=== PATIENT | female | born 1955 | race Caucasian/White ===

== ENCOUNTER 2017-03-22 07:57 | Inpatient (IN) | payer MEDICARE ==
[2017-03-22] MEDS ORDERED: NORMAL SALINE 1000 ML 1,000 ML IV ONE (08:03)
[2017-03-22 08:30] LABS: ABSOLUTE BASOPHILS # (AUTO) 0.1 10^3/uL (0.0-0.2); ABSOLUTE LYMPHOCYTES (AUTO) 1.1 10^3/uL (0.5-4.7); ABSOLUTE MONOCYTES (AUTO) 0.8 10^3/uL (0.1-1.4); ABSOLUTE NEUT (AUTO) 11.6 10^3/uL (1.7-8.2); BASOPHILS % (AUTO) 0.5 % (0-2); HEMATOCRIT 46.3 % (36.0-47.0); HGB HCT DIFFERENCE -1.3; LYMPHOCYTES % (AUTO) 8.2 % (13-45); MEAN CORPUSCULAR HEMOGLOBIN 28.1 pg (27.0-33.4); MEAN CORPUSCULAR HGB CONC 32.4 g/dL (32.0-36.0); MEAN CORPUSCULAR VOLUME 87 fl (80-97); MONOCYTES % (AUTO) 6.1 % (3-13); RED BLOOD COUNT 5.33 10^6/uL (3.72-5.28); RED CELL DISTRIBUTION WIDTH 14.3 % (11.5-14.0); SEGMENTED NEUTROPHILS % (AUTO) 85.2 % (42-78); VENOUS BLOOD BASE EXCESS -0.3 mmol/L; VENOUS BLOOD HCO3 22.8 mmol/L (20-32); VENOUS BLOOD PCO2 33.4 mmHg (35-63); VENOUS BLOOD PH 7.45 (7.30-7.42); WHITE BLOOD COUNT 13.6 10^3/uL (4.0-10.5)
--- NOTE | 2017-03-22 08:37 | ER Document Report ---
ED General - General Chief Complaint: Altered Mental Status Stated Complaint: ALTERED MENTAL STATUS Time Seen by Provider: 03/22/17 08:01 Mode of Arrival: Medic Information source: Emergency Med Personnel Cannot obtain history due to: Altered mental status Notes: 61 yr old female presents from home altered. Pt found o nthe lfoor down unknown amount of time. pt unable ot explain her concerns TRAVEL OUTSIDE OF THE [place] IN LAST 30 DAYS: No - HPI Onset: Other Onset/Duration: Persistent Quality of pain: No pain Severity: Severe Pain Level: Denies Associated symptoms: Weakness Exacerbated by: Denies Relieved by: Denies Similar symptoms previously: No Recently seen / treated by doctor: No - Related Data Allergies/Adverse Reactions: atropine [Atropine] Allergy (Intermediate, Verified 01/26/11 10:16) Abnormal behavior sumatriptan [From Imitrex] Allergy (Unverified 12/19/10 16:26) sumatriptan succinate [From Imitrex] Allergy (Unverified 12/19/10 16:26) Past Medical History - Social History Smoking Status: Never Smoker Cigarette use (# per day): No Chew tobacco use (# tins/day): No Smoking Education Provided: No Family History: None - Past Medical History Cardiac Medical History: Reports: Hx Hypertension, Hx Heart Murmur Denies: Hx Congestive Heart Failure, Hx Coronary Artery Disease, Hx Heart Attack Pulmonary Medical History: Denies: Hx Asthma, Hx Bronchitis, Hx COPD, Hx Pneumonia Neurological Medical History: Denies: Hx Cerebrovascular Accident, Hx Seizures Endocrine Medical History: Reports: Hx Diabetes Mellitus Type 2 GI Medical History: Musculoskeltal Medical History: Reports Hx Arthritis - generalized Infectious Medical History: Past Surgical History: Denies: Hx Pacemaker Review of Systems - Review of Systems Notes: PHYSICAL EXAMINATION: GENERAL: Chronically ill-appearing female no acute distress altered HEAD: Atraumatic, normocephalic. EYES: Pupils equal round and reactive to light, extraocular movements intact, conjunctiva are normal. ENT: Nares patent, oropharynx clear without exudates. Moist mucous membranes. NECK: Normal range of motion, supple without lymphadenopathy LUNGS: Breath sounds clear to auscultation bilaterally and equal. No wheezes rales or rhonchi. HEART: Regular rate and rhythm without murmurs ABDOMEN: Soft, nontender, nondistended abdomen. No guarding, no rebound. No masses appreciated. Female : deferred Musculoskeletal: Normal range of motion, no pitting or edema. No cyanosis. NEUROLOGICAL: GCS 13 confused is able to say help otherwise is unable to express herself SKIN: mild ecchymosis above the left eyebrow -: Yes ROS unobtainable due to patient's medical condition Physical Exam - Vital signs Vitals: Pulse Resp BP Pulse Ox 80 18 162/86 H 98 03/22/17 08:06 03/22/17 08:06 03/22/17 08:06 03/22/17 08:06 Course - Re-evaluation Re-evalutation: 03/22/17 08:37 Patient's presentation is concerning for a septic event, imaging lab work are pending at this time 03/22/17 09:23 Patient is noted to be febrile rectal Tylenol given, empiric antibiotics IV fluids have been ordered urinalysis noted no acute abnormality CT imaging is pending 03/22/17 09:56 I was notified that the patient began seizing, patient was admitted placed on nonrebreather nasal trumpet was inserted she was given 2 mg of Ativan IV she unfortunately did pull out her second IVs during the seizure 03/22/17 10:17 CT head on my review does not note any obvious bleed, therefore with fever seizure altered mental status I will rule out for meningitis 03/22/17 10:42 pt becoming more obtunded, not protecting her airway, intubated for airway protection 03/22/17 11:[address] Carrasco phone number is [phone] - Vital Signs Vital signs: Temp Pulse Resp BP Pulse Ox 101.2 F H 80 20 183/93 H 99 03/22/17 08:21 03/22/17 08:06 03/22/17 12:41 03/22/17 12:41 03/22/17 12:41 - Laboratory Result Diagrams: 03/22/17 08:15 03/22/17 08:15 Laboratory results interpreted by me: 03/22/17 03/22/17 03/22/17 08:15 08:15 08:15 WBC 13.6 H RBC 5.33 H RDW 14.3 H Seg Neutrophils % 85.2 H Lymphocytes % 8.2 L Absolute Neutrophils 11.6 H VBG pH 7.45 H VBG pCO2 33.4 L Potassium 3.3 L Carbon Dioxide 20 L BUN 25 H Glucose 133 H Calcium 10.4 H Creatine Kinase 902 H Total Protein 8.8 H Urine Protein Urine Ketones Urine Blood Urine Urobilinogen 03/22/17 08:51 WBC RBC RDW Seg Neutrophils % Lymphocytes % Absolute Neutrophils VBG pH VBG pCO2 Potassium Carbon Dioxide BUN Glucose Calcium Creatine Kinase Total Protein Urine Protein >=500 H Urine Ketones 20 H Urine Blood LARGE H Urine Urobilinogen 2.0 H - Diagnostic Test Radiology reviewed: Image reviewed, Reports reviewed - EKG Interpretation by Me EKG shows normal: Sinus rhythm, [place], Intervals, QRS Complexes Procedures - Intubation Orotracheal Time of Intubation: 10:30 Airway evaluation: Obese Medications: Etomidate, Succinylcholine Intubation method: Orotracheal Blade type: Finn Blade size: 4 ETT size: 8.0 ETT secured at: Gums ETT secured at (cm): 20 Breath Sounds after Intubation: Equal End tidal CO2 confirmed: Yes Post Intubation Xray: Yes Intubation Complications: No complications - Lumbar Puncture Lumbar puncture Time completed: 12:36 Consent obtained: Yes - emergent but received verbal consent from daughter Lumbar puncture pre-procedure: Sterile PPE donned, Betadine prep applied Patient position: Lying Needle size: 18 Lumbar puncture location: L4L5 Anesthetic type: 1% Lidocaine mL's of anesthetic: 5 Amount/type of drainage: 0 Number of attempts: 3 Complications: No Notes: 03/22/17 12:37 failed attempt Critical Care Note - Critical Care Note Total time excluding time spent on procedures (mins): 44 Comments: 44 Discharge - Discharge Clinical Impression: Meningitis, Encephalopathy Sepsis Qualifiers: Sepsis type: sepsis due to unspecified organism Qualified Code(s): A41.9 - Sepsis, unspecified organism Fever Qualifiers: Fever type: unspecified Qualified Code(s): R50.9 - Fever, unspecified Respiratory failure Qualifiers: Chronicity: acute Respiratory failure complication: hypercapnia Qualified Code( s): J96.02 - Acute respiratory failure with hypercapnia Condition: Critical Disposition: ADMITTED INPATIENT Admitting Provider: Hospitalist Unit Admitted: ICU
[2017-03-22 08:40] LABS: PROTHROMBIN TIME 14.2 SEC (11.4-15.4)
--- NOTE | 2017-03-22 08:43 | RADIOLOGY REPORT (SQ) ---
EXAM DESCRIPTION: CHEST SINGLE VIEW COMPLETED DATE/TIME: 03/22/2017 8:24 am REASON FOR STUDY: altered COMPARISON: None. EXAM PARAMETERS: NUMBER OF VIEWS: One view. TECHNIQUE: Single frontal radiographic view of the chest acquired. RADIATION DOSE: NA LIMITATIONS: Poor inspiration FINDINGS: LUNGS AND PLEURA: No opacities, masses or pneumothorax. No pleural effusion. MEDIASTINUM AND HILAR STRUCTURES: No masses. Contour normal. HEART AND VASCULAR STRUCTURES: Mild cardiomegaly. No evidence failure. BONES: No acute findings. HARDWARE: None in the chest. OTHER: No other significant finding. IMPRESSION: Mild cardiomegaly without evidence of acute cardiopulmonary disease. TECHNICAL DOCUMENTATION: JOB ID: [id number]
[2017-03-22 08:49] LABS: ALANINE AMINOTRANSFERASE 31 U/L (9-52); ALBUMIN 4.8 g/dL (3.5-5.0); ALKALINE PHOSPHATASE 100 U/L (38-126); ANION GAP 18 (5-19); ASPARTATE AMINO TRANSFERASE 31 U/L (14-36); BILIRUBIN,DIRECT 0.4 mg/dL (0.0-0.4); BILIRUBIN,TOTAL 0.9 mg/dL (0.2-1.3); BLOOD UREA NITROGEN 25 mg/dL (7-20); CALCIUM 10.4 mg/dL (8.4-10.2); CARBON DIOXIDE 20 mmol/L (22-30); CHLORIDE 101 mmol/L (98-107); CREATINE KINASE 902 U/L (30-135); GLUCOSE 133 mg/dL (75-110); POTASSIUM 3.3 mmol/L (3.6-5.0); SODIUM 139.3 mmol/L (137-145); TOTAL PROTEIN 8.8 g/dL (6.3-8.2)
[2017-03-22 09:01] LABS: CREATINE KINASE MB 2.38 ng/mL (<4.55); TROPONIN I 0.024 ng/mL
[2017-03-22] MEDS ORDERED: ACETAMINOPHEN 325 MG TABLET PO ONE (09:03)
[2017-03-22 09:08] LABS: APPEARANCE,URINE SLIGHTLY-CLOUDY; BILIRUBIN,URINE NEGATIVE (NEGATIVE); GLUCOSE, URINE NEGATIVE (NEGATIVE); KETONES,URINE 20 mg/dL (NEGATIVE); LEUKOCYTE ESTERASE,URINE NEGATIVE (NEGATIVE); NITRITE,URINE NEGATIVE (NEGATIVE); PROTEIN,URINE >=500 mg/dL (NEGATIVE); URINE SPECIFIC GRAVITY 1.032
[2017-03-22] MEDS ORDERED: CEFTRIAXONE 1 GM/D5W RTU 50 ML IV ONE ×2 (09:13→10:16)
[2017-03-22] MEDS ORDERED: ACETAMINOPHEN 650 MG SUPP.RECT PR ONE (09:13)
[2017-03-22] MEDS: NORMAL SALINE 1000 ML 1,000 ML IV PRN ×2 (09:16→09:29)
[2017-03-22] MEDS ORDERED: LORAZEPAM INJ 2 MG/1 ML VIAL ONE (09:53)
[2017-03-22] MEDS ORDERED: LORAZEPAM INJ 2 MG/1 ML VIAL IV ONE (09:58)
[2017-03-22] MEDS ORDERED: LIDOCAINE 1% INJ-PF (10 MG/ML) 30 ML SDV INJ ONE (10:16)
[2017-03-22] MEDS ORDERED: VANCOMYCIN HCL INJ 1000 MG VIAL IV ONE (10:16)
[2017-03-22] MEDS ORDERED: ETOMIDATE INJ/PF 20 MG/10 ML SDV IV ONE (10:25)
[2017-03-22] MEDS ORDERED: EPTIFIBATIDE 20 MG/10 ML IV ONE (10:25)
[2017-03-22] MEDS ORDERED: PROPOFOL 100 ML IV ONE ×2 (10:45→13:52)
--- NOTE | 2017-03-22 10:54 | RADIOLOGY REPORT (SQ) ---
EXAM DESCRIPTION: CT HEAD WITHOUT COMPLETED DATE/TIME: 03/22/2017 10:28 am REASON FOR STUDY: fall altered COMPARISON: 01/26/2016 TECHNIQUE: Axial images acquired through the brain without intravenous contrast. Images reviewed wi th bone, brain and subdural windows. Images stored on PACS. All CT scanners at this facility use dose modulation, iterative reconstruction, and/or weight based d osing when appropriate to reduce radiation dose to as low as reasonably achievable (ALARA). [facility]: Dose Right [facility]: CareDose [facility]: Dose Right [facility]: Teradose 4D [facility]: [employer] RADIATION DOSE: 63.42 mGy. LIMITATIONS: None. FINDINGS: VENTRICLES: Normal size and contour. CEREBRUM: No masses, no hemorrhage, no midline shift. Normal valdivia/ white differentiation. There is an area of decreased attenuation in left posterior parietal lobe and a smaller area of decreased atte nuation in the right posterior parietal lobe these findings are not seen on the prior study. CEREBELLUM: No masses. No hemorrhage. No alteration of density. No evidence for acute infarction. EXTRAAXIAL SPACES: No fluid collections. No masses. ORBITS AND GLOBE: No intra- or extraconal masses. Normal contour of globe without masses. CALVARIUM: No fracture. PARANASAL SINUSES: No fluid or mucosal thickening. SOFT TISSUES: No mass or hematoma. OTHER: No other significant finding. IMPRESSION: Microvascular ischemic changes are suggested in the posterior parietal lobe on each side , left more than right. A small old or subacute infarct cannot be ruled out on the left. These find ings are new since 01/24/2016. TECHNICAL DOCUMENTATION: JOB ID: [id number] Quality ID # [id number]: Final reports with documentation of one or more dose reduction techniques (e.g., Au tomated exposure control, adjustment of the mA and/or kV according to patient size, use of iterative reconstruction technique) 2010 [employer]- All Rights Reserved
--- NOTE | 2017-03-22 11:00 | RADIOLOGY REPORT (SQ) ---
EXAM DESCRIPTION: CT CHEST WITH COMPLETED DATE/TIME: 03/22/2017 10:27 am REASON FOR STUDY: fall altered COMPARISON: None. TECHNIQUE: CT scan of the chest performed using helical scanning technique with dynamic intravenous contrast injection. Images reviewed with lung, soft tissue and bone windows. Reconstructed coronal and sagittal MPR images reviewed. All images stored on PACS. All CT scanners at this facility use dose modulation, iterative reconstruction, and/or weight based d osing when appropriate to reduce radiation dose to as low as reasonably achievable (ALARA). [facility]: Dose Right [facility]: CareDose [facility]: Dose Right [facility]: Teradose 4D [facility]: [employer] CONTRAST TYPE AND DOSE: contrast/concentration: Isovue 370.00 mg/ml; Total Contrast Delivered: 98.0 ml; Total Saline Delivered: 53.0 ml RENAL FUNCTION: Creatinine 0.7 BUN 25 RADIATION DOSE: 20.77 . LIMITATIONS: None. FINDINGS: LUNGS AND PLEURA: There is subsegmental atelectasis in the lung bases. HILAR AND MEDIASTINAL STRUCTURES: No identified masses or abnormal nodes. HEART AND VASCULAR STRUCTURES: No aneurysm or dissection. No central pulmonary emboli. No pericardi al effusion. HARDWARE: None in the chest. UPPER ABDOMEN: See separate report of the CT of the abdomen. THYROID AND OTHER SOFT TISSUES: No masses. No adenopathy. BONES: No significant finding. OTHER: No other significant finding. IMPRESSION: There is mild subsegmental atelectasis with no acute cardiopulmonary disease. TECHNICAL DOCUMENTATION: JOB ID: [id number] Quality ID # [id number]: Final reports with documentation of one or more dose reduction techniques (e.g., Au tomated exposure control, adjustment of the mA and/or kV according to patient size, use of iterative reconstruction technique) 2010 [employer]- All Rights Reserved
--- NOTE | 2017-03-22 11:07 | RADIOLOGY REPORT (SQ) ---
EXAM DESCRIPTION: CHEST SINGLE VIEW COMPLETED DATE/TIME: 03/22/2017 10:52 am REASON FOR STUDY: ER 15 Intubation COMPARISON: Earlier the same day. NUMBER OF VIEWS: One view. TECHNIQUE: Single frontal radiographic image of the chest acquired. LIMITATIONS: None. FINDINGS: LUNGS AND PLEURA: No pneumothorax. MEDIASTINUM AND HEART: Stable heart size and mediastinal structures. SUPPORT DEVICES: Endotracheal tube tip between thoracic inlet and radha. Nasogastric tube in the st omach. BONY STRUCTURES: No acute findings. HARDWARE: None. OTHER: No other significant finding. IMPRESSION: Good position of support apparatus. No pneumothorax
--- NOTE | 2017-03-22 11:10 | RADIOLOGY REPORT (SQ) ---
EXAM DESCRIPTION: CT ABD/PELVIS WITH IV ONLY COMPLETED DATE/TIME: 03/22/2017 10:26 am REASON FOR STUDY: fall altered COMPARISON: None. TECHNIQUE: CT scan of the abdomen and pelvis performed using helical scanning technique with dynamic intravenous contrast injection. No oral contrast. Images reviewed with lung, soft tissue, and bone windows. Reconstructed coronal and sagittal MPR images reviewed. Delayed images for evaluation of the urinary system also acquired. All images stored on PACS. All CT scanners at this facility use dose modulation, iterative reconstruction, and/or weight based d osing when appropriate to reduce radiation dose to as low as reasonably achievable (ALARA). [facility]: Dose Right [facility]: CareDose [facility]: Dose Right [facility]: Teradose 4D [facility]: [employer] CONTRAST TYPE AND DOSE: 98 cc Isovue 370- low osmolar. RENAL FUNCTION: Creatinine 0.7 BUN 25 RADIATION DOSE: 18.90. LIMITATIONS: None. FINDINGS: LOWER CHEST: See separate report of the CT of the chest. LIVER: Normal size. No masses. No dilated ducts. SPLEEN: Normal size. No focal lesions. PANCREAS: No masses. No significant calcifications. No adjacent inflammation or peripancreatic fluid collections. Pancreatic duct not dilated. GALLBLADDER: No identified stones by CT criteria. No inflammatory changes to suggest cholecystitis. ADRENAL GLANDS: No significant masses or asymmetry. RIGHT KIDNEY AND URETER: No solid masses. No significant calcifications. No hydronephrosis or hyd roureter. LEFT KIDNEY AND URETER: No solid masses. No significant calcifications. No hydronephrosis or hydr oureter. AORTA AND VESSELS: No aneurysm. No dissection. Renal arteries, SMA, celiac without stenosis. RETROPERITONEUM: No retroperitoneal adenopathy, hemorrhage or masses. BOWEL AND PERITONEAL CAVITY: No masses or inflammatory changes. No free fluid or peritoneal masses. APPENDIX: Not identified. PELVIS: Urinary bladder is normal. The uterus is absent. There is no adnexal mass or fluid collecti on. ABDOMINAL WALL: There is a ventral hernia seen best on image 70 series 5 and image 95 series 3. This measures 23 mm and contains only fat. BONES: There is mild grade 1 anterolisthesis of L4 on L5. There is mild anterior wedging at T11 that does not appear to be acute OTHER: No other significant finding. IMPRESSION: 1. There is no acute abnormality in the abdomen or pelvis. 2. There is mild anterolisthesis of L4 on L5 there is mild anterior wedging at T11 that does not tyshawn ear to be acute. TECHNICAL DOCUMENTATION: JOB ID: [id number] Quality ID # [id number]: Final reports with documentation of one or more dose reduction techniques (e.g., Au tomated exposure control, adjustment of the mA and/or kV according to patient size, use of iterative reconstruction technique) 2010 [employer]- All Rights Reserved
[2017-03-22] MEDS ORDERED: SUCCINYLCHOLINE CHLORIDE INJ 200 MG/10 ML VIAL ONE (12:04)
[2017-03-22] MEDS ORDERED: DEXTROSE 40% GEL 15 GM TUBE PO PRN ×2 (12:28)
[2017-03-22] MEDS ORDERED: DEXTROSE 50%-WATER 25 GM/50 ML DISP.SYRIN IV PRN ×2 (12:28)
[2017-03-22] MEDS ORDERED: GLUCAGON,HUMAN RECOMB 1 MG INJ IM PRN (12:28)
[2017-03-22] MEDS ORDERED: INSULIN LISPRO 100 UNIT/ML 3 ML VIAL SUBCUT PRN (12:28)
[2017-03-22] MEDS ORDERED: ONDANSETRON HCL INJ/PF 4 MG/2 ML SDV IV PRN ×2 (12:38→12:58)
[2017-03-22] MEDS ORDERED: VANCOMYCIN HCL 0 MG in DEXTROSE 5%-WATER 250 ML IV NR (12:45)
--- NOTE | 2017-03-22 12:45 | EKG REPORT ---
SEVERITY:- ABNORMAL ECG - SINUS RHYTHM LEFT ATRIAL ABNORMALITY NONSPECIFIC T ABNORMALITIES, INFERIOR LEADS BORDERLINE PROLONGED QT INTERVAL : Confirmed by: Juan Alberto Ramos MD 22-Mar-2017 12:45:01
--- NOTE | 2017-03-22 12:59 | PDOC H&P ---
History of Present Illness Admission Date/PCP: 03/22/17 12:00 SINGH JAMESON MD Patient complains of: Altered mental status History of Present Illness: ALEJANDRO DALEY is a 61 year old female that was brought to the emergency department by EMS after being found down by family for an unknown period of time. Upon presentation to the emergency department she was delirious making unusual statements. She was noted to be febrile in the emergency department physician suspected possible meningitis. Lumbar puncture was attempted in the emergency department unsuccessfully. Empiric antibiotic therapy was initiated in the emergency department. Patient was intubated in the emergency department secondary to encephalopathy according to emergency department provider. I cannot obtain history at the time of my evaluation secondary to sedated/ intubated state. Medications have not been reconciled at the time of admission but in review of pharmacy records patient takes methadone, metoprolol, venlafaxine, Zanaflex, lisinopril, Neurontin, Nexium Past Medical History Cardiac Medical History: Reports: Hypertension, Heart Murmur Denies: Congestive Heart Failure, Coronary Artery Disease, Myocardial Infarction Pulmonary Medical History: Denies: Asthma, Bronchitis, Chronic Obstructive Pulmonary Disease (COPD), Pneumonia Neurological Medical History: Denies: Seizures Endocrine Medical History: Reports: Diabetes Mellitus Type 2 GI Medical History: Musculoskeltal Medical History: Reports: Arthritis - generalized Hematology: Denies: Anemia Past Surgical History Past Surgical History: Denies: Pacemaker Social History Information Source: Emergency Med Personnel Lives with: Family Smoking Status: Never Smoker Hx Recreational Drug Use: No - Advance Directive Resuscitation Status: Full Code Family History Family History: None Parental Family History Reviewed: Yes Children Family History Reviewed: Yes Sibling(s) Family History Reviewed.: Yes Medication/Allergy Home Medications: Haloperidol [Haldol 1 Mg Tablet] 1 mg PO BID #14 tablet 01/25/16 Allergies/Adverse Reactions: atropine [Atropine] Allergy (Intermediate, Verified 01/26/11 10:16) Abnormal behavior sumatriptan [From Imitrex] Allergy (Unverified 12/19/10 16:26) sumatriptan succinate [From Imitrex] Allergy (Unverified 12/19/10 16:26) Review of Systems ROS unobtainable: Due to endotracheal tube, Due to mental status Physical Exam Vital Signs: Temp Pulse Resp BP Pulse Ox 101.2 F H 80 20 183/93 H 99 03/22/17 08:21 03/22/17 08:06 03/22/17 12:41 03/22/17 12:41 03/22/17 12:41 Results Laboratory Results: Labs- Entire Visit 03/22/17 03/22/17 03/22/17 08:15 08:15 08:15 WBC 13.6 H RBC 5.33 H Hgb 15.0 Hct 46.3 MCV 87 MCH 28.1 MCHC 32.4 RDW 14.3 H Plt Count 276 Seg Neutrophils % 85.2 H Lymphocytes % 8.2 L Monocytes % 6.1 Eosinophils % 0.0 Basophils % 0.5 Absolute Neutrophils 11.6 H Absolute Lymphocytes 1.1 Absolute Monocytes 0.8 Absolute Eosinophils 0.0 Absolute Basophils 0.1 PT 14.2 INR 1.03 VBG pH VBG pCO2 VBG HCO3 VBG Base Excess Sodium 139.3 Potassium 3.3 L Chloride 101 Carbon Dioxide 20 L Anion Gap 18 BUN 25 H Creatinine 0.70 Est GFR ( Amer) > 60 Est GFR (Non-Af Amer) > 60 Glucose 133 H Lactic Acid Calcium 10.4 H Total Bilirubin 0.9 Direct Bilirubin 0.4 Indirect Bilirubin Not Reportable Neonat Total Bilirubin Not Reportable AST 31 ALT 31 Alkaline Phosphatase 100 Creatine Kinase 902 H CK-MB (CK-2) Troponin I Total Protein 8.8 H Albumin 4.8 Urine Color Urine Appearance Urine pH Ur Specific [place] Urine Protein Urine Glucose (UA) Urine Ketones Urine Blood Urine Nitrite Urine Bilirubin Urine Urobilinogen Ur Leukocyte Esterase Urine WBC (Auto) Urine RBC (Auto) U Hyaline Cast (Auto) Squamous Epi Cells Auto Urine Mucus (Auto) Urine Ascorbic Acid 03/22/17 03/22/17 03/22/17 08:15 08:15 08:15 WBC RBC Hgb Hct MCV MCH MCHC RDW Plt Count Seg Neutrophils % Lymphocytes % Monocytes % Eosinophils % Basophils % Absolute Neutrophils Absolute Lymphocytes Absolute Monocytes Absolute Eosinophils Absolute Basophils PT INR VBG pH 7.45 H VBG pCO2 33.4 L VBG HCO3 22.8 VBG Base Excess -0.3 Sodium Potassium Chloride Carbon Dioxide Anion Gap BUN Creatinine Est GFR ( Amer) Est GFR (Non-Af Amer) Glucose Lactic Acid 1.9 Calcium Total Bilirubin Direct Bilirubin Indirect Bilirubin Neonat Total Bilirubin AST ALT Alkaline Phosphatase Creatine Kinase CK-MB (CK-2) 2.38 Troponin I 0.024 Total Protein Albumin Urine Color Urine Appearance Urine pH Ur Specific [place] Urine Protein Urine Glucose (UA) Urine Ketones Urine Blood Urine Nitrite Urine Bilirubin Urine Urobilinogen Ur Leukocyte Esterase Urine WBC (Auto) Urine RBC (Auto) U Hyaline Cast (Auto) Squamous Epi Cells Auto Urine Mucus (Auto) Urine Ascorbic Acid 03/22/17 08:51 WBC RBC Hgb Hct MCV MCH MCHC RDW Plt Count Seg Neutrophils % Lymphocytes % Monocytes % Eosinophils % Basophils % Absolute Neutrophils Absolute Lymphocytes Absolute Monocytes Absolute Eosinophils Absolute Basophils PT INR VBG pH VBG pCO2 VBG HCO3 VBG Base Excess Sodium Potassium Chloride Carbon Dioxide Anion Gap BUN Creatinine Est GFR ( Amer) Est GFR (Non-Af Amer) Glucose Lactic Acid Calcium Total Bilirubin Direct Bilirubin Indirect Bilirubin Neonat Total Bilirubin AST ALT Alkaline Phosphatase Creatine Kinase CK-MB (CK-2) Troponin I Total Protein Albumin Urine Color SAMANTHA Urine Appearance SLIGHTLY-CLOUDY Urine pH 5.0 Ur Specific [place] 1.032 Urine Protein >=500 H Urine Glucose (UA) NEGATIVE Urine Ketones 20 H Urine Blood LARGE H Urine Nitrite NEGATIVE Urine Bilirubin NEGATIVE Urine Urobilinogen 2.0 H Ur Leukocyte Esterase NEGATIVE Urine WBC (Auto) 3 Urine RBC (Auto) 7 U Hyaline Cast (Auto) 2 Squamous Epi Cells Auto <1 Urine Mucus (Auto) OCC Urine Ascorbic Acid NEGATIVE Impressions: Abdomen/Pelvis CT 03/22/17 08:11 IMPRESSION: 1. There is no acute abnormality in the abdomen or pelvis. 2. There is mild anterolisthesis of L4 on L5 there is mild anterior wedging at T11 that does not appear to be acute. Chest CT 03/22/17 08:11 IMPRESSION: There is mild subsegmental atelectasis with no acute cardiopulmonary disease. Head CT 03/22/17 08:11 IMPRESSION: Microvascular ischemic changes are suggested in the posterior parietal lobe on each side, left more than right. A small old or subacute infarct cannot be ruled out on the left. These findings are new since 01/24/2016. Chest X-Ray 03/22/17 08:21 IMPRESSION: Mild cardiomegaly without evidence of acute cardiopulmonary disease. Assessment & Plan - Diagnosis (1) Respiratory failure Is this a current diagnosis for this admission?: YesPlan: Patient will be admitted to the intensive care unit. Continue ventilator support. Consult Dr. Landers of pulmonary medicine. Repeat ABG in 1 hour. Repeat chest x-ray and ABG in a.m. (2) Encephalopathy Is this a current diagnosis for this admission?: YesPlan: Given patient's fever without any other source must suspect meningitis. Lumbar puncture attempted in emergency department unsuccessfully. Order interventional radiology for lumbar puncture. Continue empiric antibiotics for meningitis. (3) Fever Is this a current diagnosis for this admission?: YesPlan: Given patient's fever without any other source must suspect meningitis. Lumbar puncture attempted in emergency department unsuccessfully. Order interventional radiology for lumbar puncture. Continue empiric antibiotics for meningitis. (4) Hypertension Is this a current diagnosis for this admission?: YesPlan: Continue home metoprolol and lisinopril. As needed IV hydralazine. (5) Diabetes Is this a current diagnosis for this admission?: YesPlan: Verify home medications. Sliding scale insulin coverage for now. (6) Abnormal head CT Is this a current diagnosis for this admission?: YesPlan: CT scan shows old versus subacute small infarct. Repeat head CT in 48 hours. (7) Chronic pain Is this a current diagnosis for this admission?: YesPlan: Chronic opiate dependence. Continue methadone 10 mg every 8 hours to prevent withdrawal syndrome. - Time Critical Time spent with patient: 35 or more minutes
[2017-03-22] MEDS ORDERED: METOPROLOL TARTRATE 50 MG TABLET NG ONE (13:00)
[2017-03-22] MEDS ORDERED: LISINOPRIL 10 MG TABLET NG ONE (13:15)
[2017-03-22] MEDS: PROPOFOL 100 ML IV PRN ×4 (14:23→22:26)
[2017-03-22] MEDS: POTASSI CL 20 MEQ/NS 1L 1,000 ML IV PRN (14:26)
[2017-03-22] MEDS: METHADONE HCL 10 MG TABLET NG SCH ×2 (14:34→22:26)
[2017-03-22 14:52] LABS: ARTERIAL BLOOD BASE EXCESS -0.1 mmol/L
[2017-03-22 15:14] LABS: ARTERIAL BLOOD BASE EXCESS -0.4 mmol/L; ARTERIAL BLOOD O2 SATURATION 98.7 % (94-98)
--- NOTE | 2017-03-22 16:47 | PDOC PROGRESS REPORT ---
Bedside Procedure - Lumbar Puncture Lumbar puncture Time completed: 16:00 Consent obtained: Yes Lumbar puncture pre-procedure: Sterile PPE donned, Betadine prep applied Patient position: Lying Notes: 03/22/17 16:46 Spinal access obtained by Dr. Molina of anesthesia. Fluid obtained and sent for appropriate studies. Patient did require several attempts secondary to body habitus and poor anatomical landmarks.
--- NOTE | 2017-03-22 16:50 | PDOC PROGRESS REPORT ---
Bedside Procedure - Central Line Right Internal jugular Time completed: 16:30 Consent obtained: Yes Central line pre-insertion: Sterile PPE donned, Chloraprep applied Central line lumen type: Triple Anesthetic type: 1% Lidocaine Ultrasound guided: Yes - Right internal jugular identified as compressible structure on ultrasound Line secured with sutures: Yes Central line post-insertion: Blood return from lumens, Biopatch applied, Sutured , Sterile dressing applied, Position confirmed w/ CXR Number of attempts: 1 Complications: No
[2017-03-22] MEDS ORDERED: NORMAL SALINE INJ/PF 0.9% 10 ML SDV IV PRN (16:54)
[2017-03-22 17:00] LABS: GLUCOSE,CSF 74 mg/dL (40-70)
[2017-03-22 17:07] LABS: APPEARANCE ALL TUBES CLEAR; RBC AVERAGE 0.5; RBC DILUENT USED NONE USED; RBC DILUTION FACTOR 1; RBC SIDE 1 1; RBC SIDE 2 0
[2017-03-22 17:08] LABS: TOTAL RBC SQUARES COUNTED 225; WHITE BLOOD CELL,CSF 4 /uL (0-5)
--- NOTE | 2017-03-22 17:13 | RADIOLOGY REPORT (SQ) ---
EXAM DESCRIPTION: CHEST SINGLE VIEW COMPLETED DATE/TIME: 03/22/2017 5:04 pm REASON FOR STUDY: central line COMPARISON: 03/22/2017 EXAM PARAMETERS: NUMBER OF VIEWS: One view. TECHNIQUE: Single frontal radiographic view of the chest acquired. RADIATION DOSE: NA LIMITATIONS: None. FINDINGS: LUNGS AND PLEURA: No opacities, masses or pneumothorax. No pleural effusion. MEDIASTINUM AND HILAR STRUCTURES: No masses. Contour normal. HEART AND VASCULAR STRUCTURES: Heart normal in size. Normal vasculature. BONES: No acute findings. HARDWARE: A right internal jugular catheter has its tip in the superior vena cava. OTHER: No other significant finding. IMPRESSION: Right central line in position. TECHNICAL DOCUMENTATION: JOB ID: [id number]
[2017-03-22] MEDS: HYDRALAZINE HCL INJ/PF 20 MG/1 ML SDV IV PRN (17:17)
[2017-03-22 17:19] LABS: CSF CULTURED REQUIRED CSF CULTURE ORDERED (CSFY); H. INFLUENZAE TYPE B AG NEGATIVE (NEGATIVE); S. PNEUMONIAE AG NEGATIVE (NEGATIVE); STREP. GROUP B AG NEGATIVE (NEGATIVE)
[2017-03-22] MEDS: CLONIDINE HCL 0.1 MG TABLET PO SCH (17:24)
[2017-03-22] MEDS: AMPICILLIN SODIUM/SULBACTAM NA 1.5 GM in NORMAL SALINE 100 ML IV SCH ×2 (17:29→23:58)
[2017-03-22] MEDS ORDERED: METOPROLOL TARTRATE 50 MG TABLET NG SCH (22:00)
[2017-03-22] MEDS: CEFTRIAXONE 2 GM/D5W RTU 2 GM/50 ML RTUPB IV SCH (22:26)
[2017-03-22] MEDS: VANCOMYCIN HCL 1,250 MG in DEXTROSE 5%-WATER 250 ML IV SCH (22:26)
[2017-03-22] MEDS: FAMOTIDINE 20 MG TABLET NG SCH (22:26)
[2017-03-23] MEDS: PROPOFOL 100 ML IV PRN ×4 (02:32→19:18)
[2017-03-23] MEDS: POTASSI CL 20 MEQ/NS 1L 1,000 ML IV PRN (03:16)
[2017-03-23 05:34] LABS: ARTERIAL BLOOD BASE EXCESS 0 mmol/L; ARTERIAL BLOOD O2 SATURATION 96.4 % (94-98)
[2017-03-23] MEDS: AMPICILLIN SODIUM/SULBACTAM NA 1.5 GM in NORMAL SALINE 100 ML IV SCH (05:40)
[2017-03-23 05:43] LABS: ABSOLUTE LYMPHOCYTES (AUTO) 2.4 10^3/uL (0.5-4.7); ABSOLUTE NEUT (AUTO) 5.7 10^3/uL (1.7-8.2); BASOPHILS % (AUTO) 0.4 % (0-2); EOSINOPHILS % (AUTO) 0.3 % (0-6); HEMATOCRIT 38.4 % (36.0-47.0); HGB HCT DIFFERENCE -0.6; LYMPHOCYTES % (AUTO) 25.9 % (13-45); MEAN CORPUSCULAR HEMOGLOBIN 28.7 pg (27.0-33.4); MEAN CORPUSCULAR VOLUME 87 fl (80-97); MONOCYTES % (AUTO) 11.2 % (3-13); RED BLOOD COUNT 4.41 10^6/uL (3.72-5.28); RED CELL DISTRIBUTION WIDTH 14.7 % (11.5-14.0); SEGMENTED NEUTROPHILS % (AUTO) 62.2 % (42-78); WHITE BLOOD COUNT 9.2 10^3/uL (4.0-10.5)
[2017-03-23] MEDS: CLONIDINE HCL 0.1 MG TABLET PO SCH ×3 (05:43→21:21)
[2017-03-23 05:51] LABS: ANION GAP 11 (5-19); BLOOD UREA NITROGEN 11 mg/dL (7-20); CALCIUM 8.6 mg/dL (8.4-10.2); CARBON DIOXIDE 22 mmol/L (22-30); CHLORIDE 108 mmol/L (98-107); CREATININE RESULT 0.53 mg/dL (0.52-1.25); GLUCOSE 86 mg/dL (75-110); MAGNESIUM 1.7 mg/dL (1.6-2.3); PHOSPHORUS 3.5 mg/dL (2.5-4.5); POTASSIUM 3.2 mmol/L (3.6-5.0); SODIUM 140.5 mmol/L (137-145)
[2017-03-23 05:54] LABS: HEMOGLOBIN 12.6 g/dL (12.0-15.5)
[2017-03-23] MEDS: METHADONE HCL 10 MG TABLET NG SCH ×3 (06:36→21:22)
[2017-03-23] MEDS: POTASSI CL 20 MEQ/50 ML RIDER 20 MEQ/50 ML RTUPB IV SCH ×3 (06:45→09:21)
--- NOTE | 2017-03-23 07:40 | RADIOLOGY REPORT (SQ) ---
EXAM DESCRIPTION: CHEST SINGLE VIEW COMPLETED DATE/TIME: 03/23/2017 6:17 am REASON FOR STUDY: resp failure COMPARISON: 03/22/2017 EXAM PARAMETERS: NUMBER OF VIEWS: One view. TECHNIQUE: Single frontal radiographic view of the chest acquired. RADIATION DOSE: NA LIMITATIONS: None. FINDINGS: LUNGS AND PLEURA: Moderate lung volume. MEDIASTINUM AND HILAR STRUCTURES: No masses. Contour normal. HEART AND VASCULAR STRUCTURES: Heart normal in size. Normal vasculature. BONES: No acute findings. HARDWARE: Adequate appearing endotracheal tube, right IJ line, and NG tube, minimally obscured. OTHER: No other significant finding. IMPRESSION: No acute cardiopulmonary findings. Lines and tubes. TECHNICAL DOCUMENTATION: JOB ID: [id number]
[2017-03-23] MEDS ORDERED: LORAZEPAM INJ 2 MG/1 ML VIAL IV PRN (07:44)
[2017-03-23] MEDS ORDERED: FENTANYL CITRATE INJ/PF 100 MCG/2 ML AMPUL IV PRN ×2 (07:44→08:57)
[2017-03-23] MEDS ORDERED: ACYCLOVIR SODIUM INJ/PF 500 MG/10 ML SDV IV PRN (07:56)
[2017-03-23] MEDS ORDERED: POTASSIUM CHLORIDE 20 MEQ/15 ML UDCUP NG ONE (08:00)
[2017-03-23] MEDS ORDERED: ACYCLOVIR SODIUM 750 MG in NORMAL SALINE 250 ML IV ONE ×2 (08:30→11:00)
[2017-03-23 08:41] LABS: PHOSPHORUS 3.4 mg/dL (2.5-4.5)
--- NOTE | 2017-03-23 08:55 | RADIOLOGY REPORT (SQ) ---
EXAM DESCRIPTION: KUB/ABDOMEN (SINGLE VIEW) COMPLETED DATE/TIME: 03/23/2017 8:41 am REASON FOR STUDY: no bm COMPARISON: None. NUMBER OF VIEWS: One view. TECHNIQUE: Supine radiographic image of the abdomen acquired. LIMITATIONS: None. FINDINGS: BOWEL GAS PATTERN: No distended loops. Moderate to large amount of stool in the colon. CALCIFICATIONS: No suspicious calcifications. SOFT TISSUES: No gross mass or suggestion of organomegaly. HARDWARE: Nasogastric tube down in the stomach. BONES: No acute fracture. No worrisome bone lesions. OTHER: No other significant finding. IMPRESSION: No acute findings. Stool retention as above. TECHNICAL DOCUMENTATION: JOB ID: [id number] [employer]- All Rights Reserved
[2017-03-23] MEDS: MAGNESIUM SULFATE/D5W 1 GM/100 ML RTUPB IV SCH ×2 (09:17→10:16)
[2017-03-23 09:20] LABS: ADD HIVPANEL? NO; HIV (1 AND 2) ANTIBODY NEGATIVE (NEGATIVE)
[2017-03-23] MEDS: POLYETHYLENE GLYCOL 3350 POWDER 17 GM/1 PACKET NG SCH (09:22)
[2017-03-23] MEDS: FAMOTIDINE 20 MG TABLET NG SCH ×2 (09:23→21:21)
[2017-03-23 09:29] LABS: HSV SOURCE CSF
[2017-03-23] MEDS ORDERED: METOPROLOL SUCCINATE 50 MG TAB.SR.24H PO SCH (10:00)
[2017-03-23] MEDS ORDERED: LISINOPRIL 10 MG TABLET NG SCH ×2 (10:00→22:00)
[2017-03-23] MEDS ORDERED: FUROSEMIDE INJ/PF 20 MG/2 ML SDV IV ONE (10:00)
[2017-03-23] MEDS: POTASSI CL 20 MEQ/D5-1/2NS 1L 1,000 ML IV PRN ×2 (10:04→23:20)
[2017-03-23] MEDS: VANCOMYCIN HCL 1,250 MG in DEXTROSE 5%-WATER 250 ML IV SCH ×2 (10:25→21:38)
[2017-03-23] MEDS: CEFTRIAXONE 2 GM/D5W RTU 2 GM/50 ML RTUPB IV SCH ×2 (10:25→21:17)
[2017-03-23] MEDS: LACTULOSE SYRUP 20 GM/30 ML UDCUP NG SCH ×3 (10:26→17:43)
[2017-03-23] MEDS: METOPROLOL TARTRATE 50 MG TABLET NG SCH ×2 (11:13→21:22)
[2017-03-23] MEDS ORDERED: METHADONE HCL 10 MG TABLET PO SCH (12:00)
[2017-03-23] MEDS: HYDRALAZINE HCL INJ/PF 20 MG/1 ML SDV IV PRN ×2 (13:16→19:56)
[2017-03-23] MEDS ORDERED: ACYCLOVIR SODIUM 750 MG in NORMAL SALINE 250 ML IV SCH (14:00)
[2017-03-23] MEDS: MAGNESIUM SULFATE/D5W 100 ML IV SCH ×2 (16:59→17:50)
[2017-03-23] MEDS ORDERED: METOPROLOL TARTRATE 25 MG TABLET PO ONE (17:00)
--- NOTE | 2017-03-23 17:16 | PDOC PROGRESS REPORT ---
Subjective Progress Note for:: 03/23/17 Subjective:: Obtain review of systems from patient secondary to intubated and sedated status. When sedation is lifted, patient follows commands. Physical Exam Vital Signs: Temp Pulse Resp BP Pulse Ox 99.1 F 66 14 161/69 H 99 03/23/17 05:22 03/22/17 19:20 03/23/17 02:00 03/23/17 01:51 03/23/17 04:00 Intake & Output 03/22/17 03/23/17 03/24/17 06:59 06:59 06:59 Intake Total 2683 Output Total 2075 Balance 608 Weight 90 kg Exam: GENERAL: No acute distress, intubated and sedated HEENT: Left eye ecchymosis, Conjunctiva clear, nonicteric, moist mucous membranes, no JVD, midline trachea RESPIRATORY: bilateral rhonchi CARDIAC: Regular rate and rhythm, no murmurs/gallops/rubs ABDOMEN: Soft, nondistended, nontender, positive bowel sounds, no rebound, no guarding EXTREMETIES: No edema, cyanosis, clubbing SKIN: No rash; bilateral patellar ecchymosis Results Laboratory Results: 03/23/17 05:10 03/23/17 05:10 03/22/17 03/22/17 03/22/17 13:56 14:22 15:02 WBC RBC Hgb Hct MCV MCH MCHC RDW Plt Count Seg Neutrophils % Lymphocytes % Monocytes % Eosinophils % Basophils % Absolute Neutrophils Absolute Lymphocytes Absolute Monocytes Absolute Eosinophils Absolute Basophils Carbonic Acid Cancelled 1.07 1.03 L HCO3/H2CO3 Ratio Cancelled 22:1 22:1 ABG pH Cancelled 7.44 7.45 ABG pCO2 Cancelled 35.4 34.3 L ABG pO2 Cancelled Not Reportable 126.4 H ABG HCO3 Cancelled 23.6 23.0 ABG O2 Saturation Cancelled Not Reportable 98.7 H ABG Base Excess Cancelled -0.1 -0.4 FiO2 Cancelled 35% 35% Sodium Potassium Chloride Carbon Dioxide Anion Gap BUN Creatinine Est GFR ( Amer) Est GFR (Non-Af Amer) Glucose Calcium Phosphorus Magnesium Fluid Tube Number CSF Volume CSF Appearance CSF Color CSF WBC CSF RBC CSF Comment CSF Glucose CSF Total Protein 03/22/17 03/22/17 03/22/17 16:11 16:11 16:11 WBC RBC Hgb Hct MCV MCH MCHC RDW Plt Count Seg Neutrophils % Lymphocytes % Monocytes % Eosinophils % Basophils % Absolute Neutrophils Absolute Lymphocytes Absolute Monocytes Absolute Eosinophils Absolute Basophils Carbonic Acid HCO3/H2CO3 Ratio ABG pH ABG pCO2 ABG pO2 ABG HCO3 ABG O2 Saturation ABG Base Excess FiO2 Sodium Potassium Chloride Carbon Dioxide Anion Gap BUN Creatinine Est GFR ( Amer) Est GFR (Non-Af Amer) Glucose Calcium Phosphorus Magnesium Fluid Tube Number 3 CSF Volume 4.3 CSF Appearance CLEAR CSF Color COLORLESS CSF WBC 4 CSF RBC 0 CSF Comment CSF CULTURE ORDERED CSF Glucose 74 H CSF Total Protein 59 03/23/17 03/23/17 03/23/17 05:10 05:10 05:10 WBC 9.2 RBC 4.41 Hgb 12.6 D Hct 38.4 MCV 87 MCH 28.7 MCHC 33.0 RDW 14.7 H Plt Count 205 Seg Neutrophils % 62.2 Lymphocytes % 25.9 Monocytes % 11.2 Eosinophils % 0.3 Basophils % 0.4 Absolute Neutrophils 5.7 Absolute Lymphocytes 2.4 Absolute Monocytes 1.0 Absolute Eosinophils 0.0 Absolute Basophils 0.0 Carbonic Acid 1.01 L HCO3/H2CO3 Ratio 23:1 ABG pH 7.46 H ABG pCO2 33.7 L ABG pO2 79.5 L ABG HCO3 23.3 ABG O2 Saturation 96.4 ABG Base Excess 0 FiO2 25% Sodium 140.5 Potassium 3.2 L Chloride 108 H Carbon Dioxide 22 Anion Gap 11 BUN 11 Creatinine 0.53 Est GFR ( Amer) > 60 Est GFR (Non-Af Amer) > 60 Glucose 86 Calcium 8.6 Phosphorus 3.5 Magnesium 1.7 Fluid Tube Number CSF Volume CSF Appearance CSF Color CSF WBC CSF RBC CSF Comment CSF Glucose CSF Total Protein Impressions: Abdomen/Pelvis CT 03/22/17 08:11 IMPRESSION: 1. There is no acute abnormality in the abdomen or pelvis. 2. There is mild anterolisthesis of L4 on L5 there is mild anterior wedging at T11 that does not appear to be acute. Chest CT 03/22/17 08:11 IMPRESSION: There is mild subsegmental atelectasis with no acute cardiopulmonary disease. Head CT 03/22/17 08:11 IMPRESSION: Microvascular ischemic changes are suggested in the posterior parietal lobe on each side, left more than right. A small old or subacute infarct cannot be ruled out on the left. These findings are new since 01/24/2016. Assessment & Plan - Diagnosis (1) Sepsis Qualifiers: Sepsis type: sepsis due to unspecified organism Qualified Code(s): A41.9 - Sepsis, unspecified organism Is this a current diagnosis for this admission?: YesPlan: Presented with fever and altered mental status. Patient also had elevated white count with tachycardia and tachypnea. However, HSV is still pending therefore we will continue to treat for encephalitis despite the low probability. Suspect pneumonia. 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 (4) Encephalopathy Is this a current diagnosis for this admission?: YesPlan: Secondary to underlying sepsis confounded by narcotic use. (5) Hypertension Qualifiers: Hypertension type: essential hypertension Qualified Code(s): I10 - Essential (primary) hypertension Is this a current diagnosis for this admission?: YesPlan: This is likely multifactorial from opiate withdrawal and essential hypertension. Increase Clonidine and add lisinopril and continue as needed hydralazine. (6) Meningitis Is this a current diagnosis for this admission?: NoPlan: However, HSV is still pending therefore we will continue to treat for encephalitis despite the low probability. Suspect pneumonia. (7) Respiratory failure Qualifiers: Chronicity: acute Respiratory failure complication: hypercapnia Qualified Code(s): J96.02 - Acute respiratory failure with hypercapnia Is this a current diagnosis for this admission?: YesPlan: Consult pulmonary medicine for ventilator management. (8) Obesity Qualifiers: Obesity type: due to excess calories Obesity severity: morbid Qualified Code(s): E66.01 - Morbid (severe) obesity due to excess calories Is this a current diagnosis for this admission?: Yes - Time Time Spent with patient: 35 or more minutes Critical Time spent with patient: 35 or more minutes Medications reviewed and adjusted accordingly: Yes
[2017-03-23] MEDS: ACYCLOVIR SODIUM 750 MG in NORMAL SALINE 250 ML IV SCH (17:43)
--- NOTE | 2017-03-23 18:01 | PDOC CONSULTATION ---
Consultation Consult Date: 03/22/17 Attending physician:: MAYKEL BRIGGS Consult reason:: resp failure History of Present Illness Admission Date/PCP: 03/22/17 12:33 SINGH JAMESON MD History of Present Illness: ALEJANDRO DALEY is a 61 year old female(all information from chart as patient intubated) that was brought to the emergency department by EMS after being found down by family for an unknown period of time. Upon presentation to the emergency department she was delirious making unusual statements. She was noted to be febrile in the emergency department physician suspected possible meningitis. Lumbar puncture was attempted in the emergency department unsuccessfully. Empiric antibiotic therapy was initiated in the emergency department. Patient was intubated in the emergency department secondary to encephalopathy according to emergency department provider. I cannot obtain history at the time of my evaluation secondary to sedated/intubated state. Past Medical History Cardiac Medical History: Reports: Hypertension, Heart Murmur Denies: Congestive Heart Failure, Coronary Artery Disease, Myocardial Infarction Pulmonary Medical History: Denies: Asthma, Bronchitis, Chronic Obstructive Pulmonary Disease (COPD), Pneumonia Neurological Medical History: Denies: Seizures Endocrine Medical History: Reports: Diabetes Mellitus Type 2 GI Medical History: Musculoskeltal Medical History: Reports: Arthritis - generalized Hematology: Denies: Anemia Past Surgical History Past Surgical History: Denies: Pacemaker Social History Lives with: Family Smoking Status: Never Smoker Hx Recreational Drug Use: No - Advance Directive Resuscitation Status: Full Code Family History Family History: None Parental Family History Reviewed: No Children Family History Reviewed: No Sibling(s) Family History Reviewed.: No Medication/Allergy Home Medications: Cephalexin Monohydrate [Keflex 500 mg Capsule] 500 mg PO Q12 03/22/17 Cetirizine HCl [Zyrtec 10 mg Tablet] 10 mg PO DAILYP PRN 03/22/17 Gabapentin [Neurontin 300 mg Capsule] 300 mg PO Q8 03/22/17 Lisinopril [Zestril] 20 mg PO DAILY 03/22/17 Methadone HCl 10 mg PO Q6 03/22/17 Metoprolol Succinate [Toprol XL 100 mg Tablet] 100 mg PO DAILY 03/22/17 Omeprazole 20 mg PO DAILY 03/22/17 Ondansetron [Zofran Odt 4 mg Tablet] 4 mg SL Q12HP PRN 03/22/17 Tizanidine HCl [Zanaflex 4 mg Tablet] 2 mg PO Q8 03/22/17 Venlafaxine HCl ER [Effexor Xr 75 mg Cap.sr] 75 mg PO DAILY 03/22/17 Allergies/Adverse Reactions: atropine [Atropine] Allergy (Intermediate, Verified 01/26/11 10:16) Abnormal behavior sumatriptan [From Imitrex] Allergy (Unverified 12/19/10 16:26) sumatriptan succinate [From Imitrex] Allergy (Unverified 12/19/10 16:26) Review of Systems ROS unobtainable: Due to endotracheal tube Physical Exam Vital Signs: Temp Pulse Resp BP Pulse Ox 98.6 F 58 L 20 165/80 H 100 03/23/17 08:00 03/23/17 08:00 03/23/17 08:00 03/23/17 08:00 03/23/17 08:00 Intake & Output 03/22/17 03/23/17 03/24/17 06:59 06:59 06:59 Intake Total 2683 Output Total 2075 250 Balance 608 -250 Weight 90 kg General appearance: PRESENT: no acute distress, disheveled, obese, well- developed Head exam: PRESENT: atraumatic, normocephalic Eye exam: PRESENT: conjunctiva pale Mouth exam: PRESENT: dry mucosa, neck supple, tongue midline, other - ET tube Neck exam: ABSENT: carotid bruit, JVD, lymphadenopathy, thyromegaly Respiratory exam: PRESENT: decreased breath sounds, prolonged expiratory phas, rhonchi, symmetrical, unlabored Cardiovascular exam: PRESENT: RRR, +S1, +S2 Pulses: PRESENT: normal radial pulses GI/Abdominal exam: PRESENT: normal bowel sounds, soft. ABSENT: distended, guarding, mass, organolmegaly, rebound, tenderness Rectal exam: PRESENT: deferred Gentrourinary exam: PRESENT: indwelling catheter Musculoskeletal exam: PRESENT: normal inspection Skin exam: PRESENT: dry, warm Results Laboratory Results: 03/23/17 05:10 03/23/17 05:10 03/22/17 03/22/17 03/22/17 13:56 14:22 15:02 WBC RBC Hgb Hct MCV MCH MCHC RDW Plt Count Seg Neutrophils % Lymphocytes % Monocytes % Eosinophils % Basophils % Absolute Neutrophils Absolute Lymphocytes Absolute Monocytes Absolute Eosinophils Absolute Basophils Carbonic Acid Cancelled 1.07 1.03 L HCO3/H2CO3 Ratio Cancelled 22:1 22:1 ABG pH Cancelled 7.44 7.45 ABG pCO2 Cancelled 35.4 34.3 L ABG pO2 Cancelled Not Reportable 126.4 H ABG HCO3 Cancelled 23.6 23.0 ABG O2 Saturation Cancelled Not Reportable 98.7 H ABG Base Excess Cancelled -0.1 -0.4 FiO2 Cancelled 35% 35% Sodium Potassium Chloride Carbon Dioxide Anion Gap BUN Creatinine Est GFR ( Amer) Est GFR (Non-Af Amer) Glucose Calcium Phosphorus Magnesium Fluid Tube Number CSF Volume CSF Appearance CSF Color CSF WBC CSF RBC CSF Comment CSF Glucose CSF Total Protein 03/22/17 03/22/17 03/22/17 16:11 16:11 16:11 WBC RBC Hgb Hct MCV MCH MCHC RDW Plt Count Seg Neutrophils % Lymphocytes % Monocytes % Eosinophils % Basophils % Absolute Neutrophils Absolute Lymphocytes Absolute Monocytes Absolute Eosinophils Absolute Basophils Carbonic Acid HCO3/H2CO3 Ratio ABG pH ABG pCO2 ABG pO2 ABG HCO3 ABG O2 Saturation ABG Base Excess FiO2 Sodium Potassium Chloride Carbon Dioxide Anion Gap BUN Creatinine Est GFR ( Amer) Est GFR (Non-Af Amer) Glucose Calcium Phosphorus Magnesium Fluid Tube Number 3 CSF Volume 4.3 CSF Appearance CLEAR CSF Color COLORLESS CSF WBC 4 CSF RBC 0 CSF Comment CSF CULTURE ORDERED CSF Glucose 74 H CSF Total Protein 59 03/23/17 03/23/17 03/23/17 05:10 05:10 05:10 WBC 9.2 RBC 4.41 Hgb 12.6 D Hct 38.4 MCV 87 MCH 28.7 MCHC 33.0 RDW 14.7 H Plt Count 205 Seg Neutrophils % 62.2 Lymphocytes % 25.9 Monocytes % 11.2 Eosinophils % 0.3 Basophils % 0.4 Absolute Neutrophils 5.7 Absolute Lymphocytes 2.4 Absolute Monocytes 1.0 Absolute Eosinophils 0.0 Absolute Basophils 0.0 Carbonic Acid 1.01 L HCO3/H2CO3 Ratio 23:1 ABG pH 7.46 H ABG pCO2 33.7 L ABG pO2 79.5 L ABG HCO3 23.3 ABG O2 Saturation 96.4 ABG Base Excess 0 FiO2 25% Sodium 140.5 Potassium 3.2 L Chloride 108 H Carbon Dioxide 22 Anion Gap 11 BUN 11 Creatinine 0.53 Est GFR ( Amer) > 60 Est GFR (Non-Af Amer) > 60 Glucose 86 Calcium 8.6 Phosphorus 3.5 Magnesium 1.7 Fluid Tube Number CSF Volume CSF Appearance CSF Color CSF WBC CSF RBC CSF Comment CSF Glucose CSF Total Protein 03/23/17 08:15 WBC RBC Hgb Hct MCV MCH MCHC RDW Plt Count Seg Neutrophils % Lymphocytes % Monocytes % Eosinophils % Basophils % Absolute Neutrophils Absolute Lymphocytes Absolute Monocytes Absolute Eosinophils Absolute Basophils Carbonic Acid HCO3/H2CO3 Ratio ABG pH ABG pCO2 ABG pO2 ABG HCO3 ABG O2 Saturation ABG Base Excess FiO2 Sodium Potassium Chloride Carbon Dioxide Anion Gap BUN Creatinine Est GFR ( Amer) Est GFR (Non-Af Amer) Glucose Calcium Phosphorus 3.4 Magnesium Fluid Tube Number CSF Volume CSF Appearance CSF Color CSF WBC CSF RBC CSF Comment CSF Glucose CSF Total Protein 03/23/17 08:15 Creatine Kinase 729 H Impressions: Abdomen/Pelvis CT 03/22/17 08:11 IMPRESSION: 1. There is no acute abnormality in the abdomen or pelvis. 2. There is mild anterolisthesis of L4 on L5 there is mild anterior wedging at T11 that does not appear to be acute. Chest CT 03/22/17 08:11 IMPRESSION: There is mild subsegmental atelectasis with no acute cardiopulmonary disease. Head CT 03/22/17 08:11 IMPRESSION: Microvascular ischemic changes are suggested in the posterior parietal lobe on each side, left more than right. A small old or subacute infarct cannot be ruled out on the left. These findings are new since 01/24/2016. KUB X-Ray 03/23/17 00:00 IMPRESSION: No acute findings. Stool retention as above. Chest X-Ray 03/23/17 06:00 IMPRESSION: No acute cardiopulmonary findings. Lines and tubes. Assessment & Plan - Diagnosis (1) Encephalopathy Is this a current diagnosis for this admission?: Yes (2) Obesity Qualifiers: Obesity type: due to excess calories Obesity severity: morbid Qualified Code(s): E66.01 - Morbid (severe) obesity due to excess calories Is this a current diagnosis for this admission?: Yes (3) Respiratory failure Qualifiers: Chronicity: acute Respiratory failure complication: hypercapnia Qualified Code(s): J96.02 - Acute respiratory failure with hypercapnia Is this a current diagnosis for this admission?: YesPlan: support ventilation as needed (4) Sepsis Qualifiers: Sepsis type: sepsis due to unspecified organism Qualified Code(s): A41.9 - Sepsis, unspecified organism Is this a current diagnosis for this admission?: YesPlan: requiring a vasopressor agent - Time Critical Time spent with patient: 35 or more minutes - 60 min
--- NOTE | 2017-03-23 18:04 | PDOC PROGRESS REPORT ---
Subjective Progress Note for:: 03/23/17 Subjective:: remains intubated Physical Exam Vital Signs: Temp Pulse Resp BP Pulse Ox 98.6 F 58 L 20 165/80 H 100 03/23/17 08:00 03/23/17 08:00 03/23/17 08:00 03/23/17 08:00 03/23/17 08:00 Intake & Output 03/22/17 03/23/17 03/24/17 06:59 06:59 06:59 Intake Total 2683 Output Total 7545 250 Balance 608 -250 Weight 90 kg General appearance: PRESENT: no acute distress, disheveled, obese, well- developed Head exam: PRESENT: atraumatic, normocephalic Eye exam: PRESENT: conjunctiva pale Mouth exam: PRESENT: dry mucosa, neck supple, tongue midline, other - ET tube Neck exam: ABSENT: carotid bruit, JVD, lymphadenopathy, thyromegaly Respiratory exam: PRESENT: decreased breath sounds, prolonged expiratory phas, rhonchi, symmetrical, unlabored Cardiovascular exam: PRESENT: RRR, +S1, +S2 Pulses: PRESENT: normal radial pulses GI/Abdominal exam: PRESENT: normal bowel sounds, soft. ABSENT: distended, guarding, mass, organolmegaly, rebound, tenderness Rectal exam: PRESENT: deferred Gentrourinary exam: PRESENT: indwelling catheter Musculoskeletal exam: PRESENT: normal inspection Skin exam: PRESENT: dry, warm Results Laboratory Results: 03/23/17 05:10 03/23/17 05:10 03/22/17 03/22/17 03/22/17 13:56 14:22 15:02 WBC RBC Hgb Hct MCV MCH MCHC RDW Plt Count Seg Neutrophils % Lymphocytes % Monocytes % Eosinophils % Basophils % Absolute Neutrophils Absolute Lymphocytes Absolute Monocytes Absolute Eosinophils Absolute Basophils Carbonic Acid Cancelled 1.07 1.03 L HCO3/H2CO3 Ratio Cancelled 22:1 22:1 ABG pH Cancelled 7.44 7.45 ABG pCO2 Cancelled 35.4 34.3 L ABG pO2 Cancelled Not Reportable 126.4 H ABG HCO3 Cancelled 23.6 23.0 ABG O2 Saturation Cancelled Not Reportable 98.7 H ABG Base Excess Cancelled -0.1 -0.4 FiO2 Cancelled 35% 35% Sodium Potassium Chloride Carbon Dioxide Anion Gap BUN Creatinine Est GFR ( Amer) Est GFR (Non-Af Amer) Glucose Calcium Phosphorus Magnesium Fluid Tube Number CSF Volume CSF Appearance CSF Color CSF WBC CSF RBC CSF Comment CSF Glucose CSF Total Protein 03/22/17 03/22/17 03/22/17 16:11 16:11 16:11 WBC RBC Hgb Hct MCV MCH MCHC RDW Plt Count Seg Neutrophils % Lymphocytes % Monocytes % Eosinophils % Basophils % Absolute Neutrophils Absolute Lymphocytes Absolute Monocytes Absolute Eosinophils Absolute Basophils Carbonic Acid HCO3/H2CO3 Ratio ABG pH ABG pCO2 ABG pO2 ABG HCO3 ABG O2 Saturation ABG Base Excess FiO2 Sodium Potassium Chloride Carbon Dioxide Anion Gap BUN Creatinine Est GFR ( Amer) Est GFR (Non-Af Amer) Glucose Calcium Phosphorus Magnesium Fluid Tube Number 3 CSF Volume 4.3 CSF Appearance CLEAR CSF Color COLORLESS CSF WBC 4 CSF RBC 0 CSF Comment CSF CULTURE ORDERED CSF Glucose 74 H CSF Total Protein 59 03/23/17 03/23/17 03/23/17 05:10 05:10 05:10 WBC 9.2 RBC 4.41 Hgb 12.6 D Hct 38.4 MCV 87 MCH 28.7 MCHC 33.0 RDW 14.7 H Plt Count 205 Seg Neutrophils % 62.2 Lymphocytes % 25.9 Monocytes % 11.2 Eosinophils % 0.3 Basophils % 0.4 Absolute Neutrophils 5.7 Absolute Lymphocytes 2.4 Absolute Monocytes 1.0 Absolute Eosinophils 0.0 Absolute Basophils 0.0 Carbonic Acid 1.01 L HCO3/H2CO3 Ratio 23:1 ABG pH 7.46 H ABG pCO2 33.7 L ABG pO2 79.5 L ABG HCO3 23.3 ABG O2 Saturation 96.4 ABG Base Excess 0 FiO2 25% Sodium 140.5 Potassium 3.2 L Chloride 108 H Carbon Dioxide 22 Anion Gap 11 BUN 11 Creatinine 0.53 Est GFR ( Amer) > 60 Est GFR (Non-Af Amer) > 60 Glucose 86 Calcium 8.6 Phosphorus 3.5 Magnesium 1.7 Fluid Tube Number CSF Volume CSF Appearance CSF Color CSF WBC CSF RBC CSF Comment CSF Glucose CSF Total Protein 03/23/17 08:15 WBC RBC Hgb Hct MCV MCH MCHC RDW Plt Count Seg Neutrophils % Lymphocytes % Monocytes % Eosinophils % Basophils % Absolute Neutrophils Absolute Lymphocytes Absolute Monocytes Absolute Eosinophils Absolute Basophils Carbonic Acid HCO3/H2CO3 Ratio ABG pH ABG pCO2 ABG pO2 ABG HCO3 ABG O2 Saturation ABG Base Excess FiO2 Sodium Potassium Chloride Carbon Dioxide Anion Gap BUN Creatinine Est GFR ( Amer) Est GFR (Non-Af Amer) Glucose Calcium Phosphorus 3.4 Magnesium Fluid Tube Number CSF Volume CSF Appearance CSF Color CSF WBC CSF RBC CSF Comment CSF Glucose CSF Total Protein 03/23/17 08:15 Creatine Kinase 729 H Impressions: Abdomen/Pelvis CT 03/22/17 08:11 IMPRESSION: 1. There is no acute abnormality in the abdomen or pelvis. 2. There is mild anterolisthesis of L4 on L5 there is mild anterior wedging at T11 that does not appear to be acute. Chest CT 03/22/17 08:11 IMPRESSION: There is mild subsegmental atelectasis with no acute cardiopulmonary disease. Head CT 03/22/17 08:11 IMPRESSION: Microvascular ischemic changes are suggested in the posterior parietal lobe on each side, left more than right. A small old or subacute infarct cannot be ruled out on the left. These findings are new since 01/24/2016. KUB X-Ray 03/23/17 00:00 IMPRESSION: No acute findings. Stool retention as above. Chest X-Ray 03/23/17 06:00 IMPRESSION: No acute cardiopulmonary findings. Lines and tubes. Assessment & Plan - Diagnosis (1) Obesity Qualifiers: Obesity type: due to excess calories Obesity severity: morbid Qualified Code(s): E66.01 - Morbid (severe) obesity due to excess calories Is this a current diagnosis for this admission?: Yes (2) Respiratory failure Qualifiers: Chronicity: acute Respiratory failure complication: hypercapnia Qualified Code(s): J96.02 - Acute respiratory failure with hypercapnia Is this a current diagnosis for this admission?: YesPlan: decreasing support as tolerated (3) Sepsis Qualifiers: Sepsis type: sepsis due to unspecified organism Qualified Code(s): A41.9 - Sepsis, unspecified organism Is this a current diagnosis for this admission?: YesPlan: requiring a vasopressor agent - Time Critical Time spent with patient: 25-34 minutes
[2017-03-23 22:26] LABS: ANION GAP 11 (5-19); BLOOD UREA NITROGEN 7 mg/dL (7-20); CALCIUM 8.8 mg/dL (8.4-10.2); CARBON DIOXIDE 25 mmol/L (22-30); CHLORIDE 104 mmol/L (98-107); CREATININE RESULT 0.48 mg/dL (0.52-1.25); GLUCOSE 126 mg/dL (75-110); POTASSIUM 3.2 mmol/L (3.6-5.0); SODIUM 139.7 mmol/L (137-145)
[2017-03-23] MEDS ORDERED: POTASSI CL 20 MEQ/50 ML RIDER 20 MEQ/50 ML RTUPB IV ONE (23:55)
[2017-03-24] MEDS ORDERED: LISINOPRIL 10 MG TABLET NG ONE
[2017-03-24] MEDS ORDERED: NORMAL SALINE 1000 ML 500 ML IV ONE
[2017-03-24] MEDS ORDERED: CLONIDINE HCL 0.1 MG TABLET PO ONE
[2017-03-24] MEDS ORDERED: METOPROLOL TARTRATE 50 MG TABLET NG ONE
[2017-03-24] MEDS: POTASSI CL 20 MEQ/50 ML RIDER 20 MEQ/50 ML RTUPB IV SCH ×3 (00:01→03:49)
[2017-03-24] MEDS: ACYCLOVIR SODIUM 750 MG in NORMAL SALINE 250 ML IV SCH ×3 (01:55→18:11)
[2017-03-24 04:39] LABS: ARTERIAL BLOOD BASE EXCESS 0.6 mmol/L; ARTERIAL BLOOD O2 SATURATION 96.3 % (94-98)
[2017-03-24 05:00] LABS: ABSOLUTE BASOPHILS # (AUTO) 0.1 10^3/uL (0.0-0.2); ABSOLUTE EOSINOPHILS # (AUTO) 0.1 10^3/uL (0.0-0.6); ABSOLUTE LYMPHOCYTES (AUTO) 1.7 10^3/uL (0.5-4.7); ABSOLUTE MONOCYTES (AUTO) 0.8 10^3/uL (0.1-1.4); ABSOLUTE NEUT (AUTO) 5.7 10^3/uL (1.7-8.2); BASOPHILS % (AUTO) 0.6 % (0-2); EOSINOPHILS % (AUTO) 1.2 % (0-6); HEMATOCRIT 36.2 % (36.0-47.0); HEMOGLOBIN 12.1 g/dL (12.0-15.5); HGB HCT DIFFERENCE 0.1; LYMPHOCYTES % (AUTO) 20.7 % (13-45); MEAN CORPUSCULAR HEMOGLOBIN 28.8 pg (27.0-33.4); MEAN CORPUSCULAR HGB CONC 33.5 g/dL (32.0-36.0); MEAN CORPUSCULAR VOLUME 86 fl (80-97); MONOCYTES % (AUTO) 9.9 % (3-13); RED BLOOD COUNT 4.21 10^6/uL (3.72-5.28); RED CELL DISTRIBUTION WIDTH 14.9 % (11.5-14.0); SEGMENTED NEUTROPHILS % (AUTO) 67.6 % (42-78); WHITE BLOOD COUNT 8.5 10^3/uL (4.0-10.5)
[2017-03-24 05:23] LABS: ALANINE AMINOTRANSFERASE 27 U/L (9-52); ALBUMIN 3.1 g/dL (3.5-5.0); ALKALINE PHOSPHATASE 61 U/L (38-126); ANION GAP 8 (5-19); ASPARTATE AMINO TRANSFERASE 22 U/L (14-36); BILIRUBIN,DIRECT 0.3 mg/dL (0.0-0.4); BILIRUBIN,TOTAL 0.6 mg/dL (0.2-1.3); BLOOD UREA NITROGEN 7 mg/dL (7-20); CALCIUM 8.5 mg/dL (8.4-10.2); CARBON DIOXIDE 25 mmol/L (22-30); CHLORIDE 107 mmol/L (98-107); CREATININE RESULT 0.58 mg/dL (0.52-1.25); GLUCOSE 106 mg/dL (75-110); MAGNESIUM 1.7 mg/dL (1.6-2.3); POTASSIUM 3.7 mmol/L (3.6-5.0); SODIUM 139.8 mmol/L (137-145); TOTAL PROTEIN 6.1 g/dL (6.3-8.2); TRIGLYCERIDES 128 mg/dL (<150)
[2017-03-24] MEDS: METHADONE HCL 10 MG TABLET NG SCH ×3 (06:30→21:12)
[2017-03-24] MEDS: CLONIDINE HCL 0.1 MG TABLET PO SCH ×3 (06:32→21:13)
--- NOTE | 2017-03-24 07:09 | RADIOLOGY REPORT (SQ) ---
EXAM DESCRIPTION: CHEST SINGLE VIEW COMPLETED DATE/TIME: 03/24/2017 6:35 am REASON FOR STUDY: resp failure COMPARISON: 03/23/2017 EXAM PARAMETERS: NUMBER OF VIEWS: One view. TECHNIQUE: Single frontal radiographic view of the chest acquired. RADIATION DOSE: NA LIMITATIONS: None. FINDINGS: LUNGS AND PLEURA: Rotated, moderate lung volumes, moderate interstitial markings, predomin antly left-sided, and small left basilar atelectasis or scar. MEDIASTINUM AND HILAR STRUCTURES: No masses. Contour normal. HEART AND VASCULAR STRUCTURES: Mild enlargement of the cardiac silhouette. BONES: No acute findings. HARDWARE: Adequate appearing endotracheal tube, partially imaged NG tube, and right internal jugular central line. OTHER: No other significant finding. IMPRESSION: No significant interval change. TECHNICAL DOCUMENTATION: JOB ID: [id number]
[2017-03-24] MEDS: MAGNESIUM SULFATE/D5W 100 ML IV SCH ×2 (08:02→09:07)
[2017-03-24 08:45] LABS: ANION GAP 7 (5-19); BLOOD UREA NITROGEN 6 mg/dL (7-20); CALCIUM 8.7 mg/dL (8.4-10.2); CARBON DIOXIDE 26 mmol/L (22-30); CHLORIDE 108 mmol/L (98-107); CREATININE RESULT 0.58 mg/dL (0.52-1.25); GLUCOSE 125 mg/dL (75-110); POTASSIUM 3.9 mmol/L (3.6-5.0); SODIUM 140.9 mmol/L (137-145)
[2017-03-24] MEDS: FAMOTIDINE 20 MG TABLET NG SCH ×2 (09:09→21:13)
[2017-03-24] MEDS: ENOXAPARIN SODIUM INJ 40 MG/0.4 ML DISP.SYRIN SUBCUT SCH (09:09)
[2017-03-24] MEDS: POLYETHYLENE GLYCOL 3350 POWDER 17 GM/1 PACKET NG SCH (09:12)
[2017-03-24] MEDS: CEFTRIAXONE 2 GM/D5W RTU 2 GM/50 ML RTUPB IV SCH ×2 (09:23→21:13)
[2017-03-24] MEDS: METOPROLOL TARTRATE 50 MG TABLET NG SCH ×2 (09:29→21:13)
[2017-03-24] MEDS: LACTULOSE SYRUP 20 GM/30 ML UDCUP NG SCH ×3 (09:32→18:27)
[2017-03-24] MEDS: VANCOMYCIN HCL 1,250 MG in DEXTROSE 5%-WATER 250 ML IV SCH (10:00)
[2017-03-24] MEDS: POTASSI CL 20 MEQ/D5-1/2NS 1L 1,000 ML IV PRN ×2 (10:28→23:48)
[2017-03-24] MEDS: LISINOPRIL 10 MG TABLET NG SCH ×2 (10:33→21:13)
--- NOTE | 2017-03-24 13:38 | PDOC PROGRESS REPORT ---
Subjective Progress Note for:: 03/24/17 Subjective:: Intubated, awake, responsive, Physical Exam Vital Signs: Temp Pulse Resp BP Pulse Ox 99.3 F 76 17 163/83 H 97 03/24/17 07:40 03/24/17 07:40 03/24/17 07:40 03/24/17 07:40 03/24/17 07:40 Intake & Output 03/23/17 03/24/17 03/25/17 06:59 06:59 06:59 Intake Total 2683 4628 Output Total 2075 4215 420 Balance 608 413 -420 Weight 90 kg 89.7 kg General appearance: PRESENT: no acute distress, cooperative, disheveled, obese, well-developed Head exam: PRESENT: atraumatic, normocephalic Eye exam: PRESENT: conjunctiva pale, EOMI Mouth exam: PRESENT: dry mucosa, neck supple, tongue midline, other - ET tube in place Neck exam: ABSENT: carotid bruit, JVD, lymphadenopathy, thyromegaly Respiratory exam: PRESENT: decreased breath sounds, prolonged expiratory phas, rhonchi, unlabored Cardiovascular exam: PRESENT: RRR, +S1, +S2 Pulses: PRESENT: normal radial pulses GI/Abdominal exam: PRESENT: normal bowel sounds, soft. ABSENT: distended, guarding, mass, organolmegaly, rebound, tenderness Rectal exam: PRESENT: deferred Gentrourinary exam: PRESENT: indwelling catheter Musculoskeletal exam: PRESENT: normal inspection Neurological exam: PRESENT: awake Skin exam: PRESENT: dry, warm Results Laboratory Results: 03/24/17 04:40 03/24/17 04:40 03/23/17 03/23/17 03/24/17 08:15 21:50 04:10 WBC RBC Hgb Hct MCV MCH MCHC RDW Plt Count Seg Neutrophils % Lymphocytes % Monocytes % Eosinophils % Basophils % Absolute Neutrophils Absolute Lymphocytes Absolute Monocytes Absolute Eosinophils Absolute Basophils Carbonic Acid 0.94 L HCO3/H2CO3 Ratio 24:1 ABG pH 7.49 H ABG pCO2 31.1 L ABG pO2 76.2 L ABG HCO3 23.1 ABG O2 Saturation 96.3 ABG Base Excess 0.6 FiO2 25% Sodium 139.7 Potassium 3.2 L Chloride 104 Carbon Dioxide 25 Anion Gap 11 BUN 7 Creatinine 0.48 L Est GFR ( Amer) > 60 Est GFR (Non-Af Amer) > 60 Glucose 126 H Calcium 8.8 Phosphorus 3.4 Magnesium Total Bilirubin AST ALT Alkaline Phosphatase Ammonia Total Protein Albumin Triglycerides 03/24/17 03/24/17 03/24/17 04:40 04:40 04:40 WBC 8.5 RBC 4.21 Hgb 12.1 Hct 36.2 MCV 86 MCH 28.8 MCHC 33.5 RDW 14.9 H Plt Count 194 Seg Neutrophils % 67.6 Lymphocytes % 20.7 Monocytes % 9.9 Eosinophils % 1.2 Basophils % 0.6 Absolute Neutrophils 5.7 Absolute Lymphocytes 1.7 Absolute Monocytes 0.8 Absolute Eosinophils 0.1 Absolute Basophils 0.1 Carbonic Acid HCO3/H2CO3 Ratio ABG pH ABG pCO2 ABG pO2 ABG HCO3 ABG O2 Saturation ABG Base Excess FiO2 Sodium 139.8 Potassium 3.7 Chloride 107 Carbon Dioxide 25 Anion Gap 8 BUN 7 Creatinine 0.58 Est GFR ( Amer) > 60 Est GFR (Non-Af Amer) > 60 Glucose 106 Calcium 8.5 Phosphorus Magnesium 1.7 Total Bilirubin 0.6 AST 22 ALT 27 Alkaline Phosphatase 61 Ammonia < 8.7 L Total Protein 6.1 L Albumin 3.1 L Triglycerides 128 03/23/17 08:15 Creatine Kinase 729 H Impressions: Abdomen/Pelvis CT 03/22/17 08:11 IMPRESSION: 1. There is no acute abnormality in the abdomen or pelvis. 2. There is mild anterolisthesis of L4 on L5 there is mild anterior wedging at T11 that does not appear to be acute. Chest CT 03/22/17 08:11 IMPRESSION: There is mild subsegmental atelectasis with no acute cardiopulmonary disease. Head CT 03/22/17 08:11 IMPRESSION: Microvascular ischemic changes are suggested in the posterior parietal lobe on each side, left more than right. A small old or subacute infarct cannot be ruled out on the left. These findings are new since 01/24/2016. KUB X-Ray 03/23/17 00:00 IMPRESSION: No acute findings. Stool retention as above. Chest X-Ray 03/24/17 06:00 IMPRESSION: No significant interval change. Assessment & Plan - Diagnosis (1) Encephalopathy Is this a current diagnosis for this admission?: Yes (2) Obesity Qualifiers: Obesity type: due to excess calories Obesity severity: morbid Qualified Code(s): E66.01 - Morbid (severe) obesity due to excess calories Is this a current diagnosis for this admission?: Yes (3) Respiratory failure Qualifiers: Chronicity: acute Respiratory failure complication: hypercapnia Qualified Code(s): J96.02 - Acute respiratory failure with hypercapnia Is this a current diagnosis for this admission?: YesPlan: Respiratory rate, minute ventilation, FiO2, airway pressures, all suggest successful extubation will proceed with extubation (4) Sepsis Qualifiers: Sepsis type: sepsis due to unspecified organism Qualified Code(s): A41.9 - Sepsis, unspecified organism Is this a current diagnosis for this admission?: Yes - Time Critical Time spent with patient: 35 or more minutes - 55 min
--- NOTE | 2017-03-24 18:23 | PDOC PROGRESS REPORT ---
Subjective Progress Note for:: 03/24/17 Subjective:: Obtain review of systems from patient secondary to intubated and sedated status. When sedation is lifted, patient follows commands and answers questions yes and no. Denies abdominal pain, chest pain, headache. Physical Exam Vital Signs: Temp Pulse Resp BP Pulse Ox 98.6 F 62 15 130/72 H 98 03/24/17 16:00 03/24/17 16:00 03/24/17 16:23 03/24/17 16:23 03/24/17 16:23 Intake & Output 03/23/17 03/24/17 03/25/17 06:59 06:59 06:59 Intake Total 2683 4695 Output Total 2748 0664 2164 Balance 604 413 -216 Weight 90 kg 89.7 kg Exam: GENERAL: No acute distress, intubated and sedated HEENT: Left eye ecchymosis, Conjunctiva clear, nonicteric, moist mucous membranes, no JVD, midline trachea RESPIRATORY: CTAB CARDIAC: Regular rate and rhythm, no murmurs/gallops/rubs ABDOMEN: Soft, nondistended, nontender, positive bowel sounds, no rebound, no guarding EXTREMETIES: No edema, cyanosis, clubbing SKIN: No rash; bilateral patellar ecchymosis Results Laboratory Results: 03/24/17 04:40 03/24/17 08:10 03/23/17 03/24/17 03/24/17 21:50 04:10 04:40 WBC RBC Hgb Hct MCV MCH MCHC RDW Plt Count Seg Neutrophils % Lymphocytes % Monocytes % Eosinophils % Basophils % Absolute Neutrophils Absolute Lymphocytes Absolute Monocytes Absolute Eosinophils Absolute Basophils Carbonic Acid 0.94 L HCO3/H2CO3 Ratio 24:1 ABG pH 7.49 H ABG pCO2 31.1 L ABG pO2 76.2 L ABG HCO3 23.1 ABG O2 Saturation 96.3 ABG Base Excess 0.6 FiO2 25% Sodium 139.7 Potassium 3.2 L Chloride 104 Carbon Dioxide 25 Anion Gap 11 BUN 7 Creatinine 0.48 L Est GFR ( Amer) > 60 Est GFR (Non-Af Amer) > 60 Glucose 126 H Calcium 8.8 Magnesium Total Bilirubin AST ALT Alkaline Phosphatase Ammonia < 8.7 L Total Protein Albumin Triglycerides 03/24/17 03/24/17 03/24/17 04:40 04:40 08:10 WBC 8.5 RBC 4.21 Hgb 12.1 Hct 36.2 MCV 86 MCH 28.8 MCHC 33.5 RDW 14.9 H Plt Count 194 Seg Neutrophils % 67.6 Lymphocytes % 20.7 Monocytes % 9.9 Eosinophils % 1.2 Basophils % 0.6 Absolute Neutrophils 5.7 Absolute Lymphocytes 1.7 Absolute Monocytes 0.8 Absolute Eosinophils 0.1 Absolute Basophils 0.1 Carbonic Acid HCO3/H2CO3 Ratio ABG pH ABG pCO2 ABG pO2 ABG HCO3 ABG O2 Saturation ABG Base Excess FiO2 Sodium 139.8 140.9 Potassium 3.7 3.9 Chloride 107 108 H Carbon Dioxide 25 26 Anion Gap 8 7 BUN 7 6 L Creatinine 0.58 0.58 Est GFR ( Amer) > 60 > 60 Est GFR (Non-Af Amer) > 60 > 60 Glucose 106 125 H Calcium 8.5 8.7 Magnesium 1.7 Total Bilirubin 0.6 AST 22 ALT 27 Alkaline Phosphatase 61 Ammonia Total Protein 6.1 L Albumin 3.1 L Triglycerides 128 03/24/17 03/24/17 08:10 12:20 WBC RBC Hgb Hct MCV MCH MCHC RDW Plt Count Seg Neutrophils % Lymphocytes % Monocytes % Eosinophils % Basophils % Absolute Neutrophils Absolute Lymphocytes Absolute Monocytes Absolute Eosinophils Absolute Basophils Carbonic Acid HCO3/H2CO3 Ratio ABG pH ABG pCO2 ABG pO2 ABG HCO3 ABG O2 Saturation ABG Base Excess FiO2 Sodium Potassium Chloride Carbon Dioxide Anion Gap BUN Creatinine Est GFR ( Amer) Est GFR (Non-Af Amer) Glucose Calcium Magnesium 2.2 Total Bilirubin AST ALT Alkaline Phosphatase Ammonia Total Protein Albumin Triglycerides 03/23/17 08:15 Creatine Kinase 729 H Impressions: Abdomen/Pelvis CT 03/22/17 08:11 IMPRESSION: 1. There is no acute abnormality in the abdomen or pelvis. 2. There is mild anterolisthesis of L4 on L5 there is mild anterior wedging at T11 that does not appear to be acute. Chest CT 03/22/17 08:11 IMPRESSION: There is mild subsegmental atelectasis with no acute cardiopulmonary disease. Head CT 03/22/17 08:11 IMPRESSION: Microvascular ischemic changes are suggested in the posterior parietal lobe on each side, left more than right. A small old or subacute infarct cannot be ruled out on the left. These findings are new since 01/24/2016. KUB X-Ray 03/23/17 00:00 IMPRESSION: No acute findings. Stool retention as above. Chest X-Ray 03/24/17 06:00 IMPRESSION: No significant interval change. Assessment & Plan - Diagnosis (1) Sepsis Qualifiers: Sepsis type: sepsis due to unspecified organism Qualified Code(s): A41.9 - Sepsis, unspecified organism Is this a current diagnosis for this admission?: YesPlan: Presented with fever and altered mental status. Patient also had elevated white count with tachycardia and tachypnea. However, HSV is still pending therefore we will continue to treat for encephalitis despite the low probability. Suspect pneumonia. (2) Chronic pain Qualifiers: Chronic pain type: other chronic pain Qualified Code(s): G89.29 - Other chronic pain Is this a current diagnosis for this admission?: YesPlan: Patient's home methadone (3) Diabetes Qualifiers: Diabetes mellitus type: type 2 Diabetes mellitus complication status: with unspecified complications Diabetes mellitus termite control servicer insulin use: unspecified termite control servicer insulin use status Qualified Code(s): E11.8 - Type 2 diabetes mellitus with unspecified complications; Z79.4 - USP (current) use of insulin Is this a current diagnosis for this admission?: YesPlan: Accuchecks and slide scale insulin (4) Encephalopathy Is this a current diagnosis for this admission?: YesPlan: Secondary to underlying sepsis confounded by narcotic use. (5) Hypertension Qualifiers: Hypertension type: essential hypertension Qualified Code(s): I10 - Essential (primary) hypertension Is this a current diagnosis for this admission?: YesPlan: This is likely multifactorial from opiate withdrawal and essential hypertension. Increase Clonidine and add lisinopril and continue as needed hydralazine. (6) Meningitis Is this a current diagnosis for this admission?: NoPlan: However, HSV is still pending therefore we will continue to treat for encephalitis despite the low probability. Suspect pneumonia. (7) Respiratory failure Qualifiers: Chronicity: acute Respiratory failure complication: hypercapnia Qualified Code(s): J96.02 - Acute respiratory failure with hypercapnia Is this a current diagnosis for this admission?: YesPlan: Likely extubate today (8) Obesity Qualifiers: Obesity type: due to excess calories Obesity severity: morbid Qualified Code(s): E66.01 - Morbid (severe) obesity due to excess calories Is this a current diagnosis for this admission?: Yes (9) CVA (cerebral vascular accident) Qualifiers: CVA mechanism: unspecified Qualified Code(s): I63.9 - Cerebral infarction, unspecified Is this a current diagnosis for this admission?: YesPlan: Concern on admitting CT for possible cva. Will obtain MRI after extubation. Family reports a 4 year history of auditory hallucinations. - Time Time Spent with patient: 35 or more minutes Medications reviewed and adjusted accordingly: Yes
[2017-03-24] MEDS: VANCOMYCIN HCL 1,000 MG in DEXTROSE 5%-WATER 250 ML IV SCH (18:27)
[2017-03-25] MEDS: ACYCLOVIR SODIUM 750 MG in NORMAL SALINE 250 ML IV SCH ×3 (02:49→17:12)
[2017-03-25] MEDS: VANCOMYCIN HCL 1,000 MG in DEXTROSE 5%-WATER 250 ML IV SCH ×3 (03:18→22:03)
[2017-03-25] MEDS: METHADONE HCL 10 MG TABLET NG SCH ×3 (05:22→22:01)
[2017-03-25] MEDS: CLONIDINE HCL 0.1 MG TABLET PO SCH ×3 (05:55→22:00)
[2017-03-25 07:13] LABS: ABSOLUTE EOSINOPHILS # (AUTO) 0.3 10^3/uL (0.0-0.6); ABSOLUTE LYMPHOCYTES (AUTO) 1.6 10^3/uL (0.5-4.7); ABSOLUTE MONOCYTES (AUTO) 0.4 10^3/uL (0.1-1.4); ABSOLUTE NEUT (AUTO) 2.9 10^3/uL (1.7-8.2); BASOPHILS % (AUTO) 0.8 % (0-2); EOSINOPHILS % (AUTO) 5.7 % (0-6); HEMATOCRIT 35.3 % (36.0-47.0); HEMOGLOBIN 11.7 g/dL (12.0-15.5); HGB HCT DIFFERENCE -0.2; LYMPHOCYTES % (AUTO) 30.6 % (13-45); MEAN CORPUSCULAR HEMOGLOBIN 28.6 pg (27.0-33.4); MEAN CORPUSCULAR HGB CONC 33.2 g/dL (32.0-36.0); MEAN CORPUSCULAR VOLUME 86 fl (80-97); MONOCYTES % (AUTO) 8.1 % (3-13); RED CELL DISTRIBUTION WIDTH 14.7 % (11.5-14.0); SEGMENTED NEUTROPHILS % (AUTO) 54.8 % (42-78); WHITE BLOOD COUNT 5.4 10^3/uL (4.0-10.5)
[2017-03-25 07:35] LABS: ANION GAP 8 (5-19); BLOOD UREA NITROGEN 9 mg/dL (7-20); CALCIUM 8.6 mg/dL (8.4-10.2); CARBON DIOXIDE 25 mmol/L (22-30); CHLORIDE 107 mmol/L (98-107); GLUCOSE 132 mg/dL (75-110); MAGNESIUM 1.7 mg/dL (1.6-2.3); PHOSPHORUS 3.9 mg/dL (2.5-4.5); POTASSIUM 3.5 mmol/L (3.6-5.0); SODIUM 140.4 mmol/L (137-145)
[2017-03-25] MEDS ORDERED: HALOPERIDOL LACTATE INJ 5 MG/1 ML VIAL IV ONE (08:34)
[2017-03-25] MEDS ORDERED: POTASSIUM CHLORIDE 10 MEQ TABLET.SA PO ONE (09:00)
--- NOTE | 2017-03-25 09:00 | RADIOLOGY REPORT (SQ) ---
EXAM DESCRIPTION: CHEST SINGLE VIEW COMPLETED DATE/TIME: 03/25/2017 8:18 am REASON FOR STUDY: resp failure COMPARISON: CT chest 03/22/2017 Chest films 03/23/2017, 03/24/2017 EXAM PARAMETERS: NUMBER OF VIEWS: One view. TECHNIQUE: Single frontal radiographic view of the chest acquired. RADIATION DOSE: NA LIMITATIONS: None. FINDINGS: LUNGS AND PLEURA: No opacities, masses or pneumothorax. No pleural effusion. MEDIASTINUM AND HILAR STRUCTURES: No masses. Contour normal. HEART AND VASCULAR STRUCTURES: Heart normal in size. Normal vasculature. BONES: No acute findings. HARDWARE: None in the chest. OTHER: No other significant finding. IMPRESSION: NO ACUTE RADIOGRAPHIC FINDING IN THE CHEST. TECHNICAL DOCUMENTATION: JOB ID: [id number]
[2017-03-25] MEDS: LISINOPRIL 10 MG TABLET NG SCH ×2 (09:18→22:01)
[2017-03-25] MEDS: MAGNESIUM SULFATE/D5W 1 GM/100 ML RTUPB IV SCH ×2 (09:18→14:10)
[2017-03-25] MEDS: FAMOTIDINE 20 MG TABLET NG SCH ×2 (09:18→22:00)
[2017-03-25] MEDS: ENOXAPARIN SODIUM INJ 40 MG/0.4 ML DISP.SYRIN SUBCUT SCH (09:18)
[2017-03-25] MEDS: POLYETHYLENE GLYCOL 3350 POWDER 17 GM/1 PACKET NG SCH (09:18)
[2017-03-25] MEDS: METOPROLOL TARTRATE 50 MG TABLET NG SCH ×2 (09:18→22:02)
--- NOTE | 2017-03-25 13:03 | RADIOLOGY REPORT (SQ) ---
EXAM DESCRIPTION: MRI HEAD COMBO COMPLETED DATE/TIME: 03/25/2017 12:29 pm REASON FOR STUDY: hallucinations abnormal head CT on presentation COMPARISON: 03/22/2017, 01/24/2016 CT brain TECHNIQUE: Multiplanar imaging includes noncontrasted T1, T2, FLAIR, diffusion with ADC map and post gadolinium contrast T1 sequences. Images stored on PACS. CONTRAST TYPE AND DOSE: 20 mL Multihance. RENAL FUNCTION: GFR > 60. LIMITATIONS: None. FINDINGS: ANATOMY: No developmental anomalies. Normal vascular flow voids. Pituitary fossa normal. CSF SPACES: Normal in size and contour. No hemorrhage. CEREBRUM: Bilateral posterior frontal/parietal parasagittal white matter increased signal on T2 and F LAIR, decreased T1 weighted signal in these areas without contrast enhancement. Diffusion images are negative. This most likely represents posterior reversible encephalopathy syndrome. No adjacent christopher perior sagittal sinus thrombosis. No hemorrhage. No mass effect or midline shift. Elsewhere, there is spotty increased signal in the biparietal and bifrontal white matter from gliosis along perivascular spaces or minimal small vessel ischemic change, chronic. POSTERIOR FOSSA: No signal alteration. No hemorrhage. No edema, masses, or mass effect. Internal mary tory canals, cerebellopontine angles, mastoids normal. No enhancing lesions. No abnormal enhancement post contrast. DIFFUSION IMAGING: Negative for acute or subacute infarction. ORBITS: No masses. Globes post cataract surgery. PARANASAL SINUSES: No fluid levels. Mucosa normal. OTHER: Discussed with Dr. Sharif. IMPRESSION: Abnormal brain parenchymal signal without diffusion abnormality in the bilateral posteri or frontal and parietal parasagittal white matter likely posterior reversible encephalopathy syndrome . Repeat scanning in 3 months would be useful for followup TECHNICAL DOCUMENTATION: JOB ID: [id number]- All Rights Reserved
[2017-03-25] MEDS ORDERED: LEVETIRACETAM 500 MG TABLET PO ONE (14:00)
--- NOTE | 2017-03-25 15:22 | PDOC PROGRESS REPORT ---
Subjective Progress Note for:: 03/25/17 Subjective:: Patient remains extubated doing well. Patient is scheduled for an MRI today and requests something for anxiety related to this procedure. Denies chest pain, shortness of breath, nausea, vomiting, fever, chills, and constipation. Physical Exam Vital Signs: Temp Pulse Resp BP Pulse Ox 98.2 F 71 19 121/58 L 97 03/25/17 03:40 03/25/17 06:53 03/25/17 03:40 03/25/17 03:40 03/25/17 03:40 Intake & Output 03/24/17 03/25/17 03/26/17 06:59 06:59 06:59 Intake Total 4628 3627 Output Total 4215 3590 Balance 413 37 Weight 89.7 kg 92.2 kg Exam: GENERAL: No acute distress HEENT: Left eye ecchymosis, Conjunctiva clear, nonicteric, moist mucous membranes, no JVD, midline trachea RESPIRATORY: CTAB CARDIAC: Regular rate and rhythm, no murmurs/gallops/rubs ABDOMEN: Soft, nondistended, nontender, positive bowel sounds, no rebound, no guarding EXTREMETIES: No edema, cyanosis, clubbing Neuro: CN 2-12 grossly intact without focal deficits, A+OX3 Psych: normal mood and affect SKIN: No rash; bilateral patellar ecchymosis Results Laboratory Results: 03/25/17 07:05 03/24/17 03/24/17 03/24/17 08:10 08:10 12:20 WBC RBC Hgb Hct MCV MCH MCHC RDW Plt Count Seg Neutrophils % Lymphocytes % Monocytes % Eosinophils % Basophils % Absolute Neutrophils Absolute Lymphocytes Absolute Monocytes Absolute Eosinophils Absolute Basophils Sodium 140.9 Potassium 3.9 Chloride 108 H Carbon Dioxide 26 Anion Gap 7 BUN 6 L Creatinine 0.58 Est GFR ( Amer) > 60 Est GFR (Non-Af Amer) > 60 Glucose 125 H Calcium 8.7 Magnesium 2.2 03/25/17 07:05 WBC 5.4 RBC 4.10 Hgb 11.7 L Hct 35.3 L MCV 86 MCH 28.6 MCHC 33.2 RDW 14.7 H Plt Count 164 Seg Neutrophils % 54.8 Lymphocytes % 30.6 Monocytes % 8.1 Eosinophils % 5.7 Basophils % 0.8 Absolute Neutrophils 2.9 Absolute Lymphocytes 1.6 Absolute Monocytes 0.4 Absolute Eosinophils 0.3 Absolute Basophils 0.0 Sodium Potassium Chloride Carbon Dioxide Anion Gap BUN Creatinine Est GFR ( Amer) Est GFR (Non-Af Amer) Glucose Calcium Magnesium 03/23/17 08:15 Creatine Kinase 729 H Impressions: Abdomen/Pelvis CT 03/22/17 08:11 IMPRESSION: 1. There is no acute abnormality in the abdomen or pelvis. 2. There is mild anterolisthesis of L4 on L5 there is mild anterior wedging at T11 that does not appear to be acute. Chest CT 03/22/17 08:11 IMPRESSION: There is mild subsegmental atelectasis with no acute cardiopulmonary disease. Head CT 03/22/17 08:11 IMPRESSION: Microvascular ischemic changes are suggested in the posterior parietal lobe on each side, left more than right. A small old or subacute infarct cannot be ruled out on the left. These findings are new since 01/24/2016. KUB X-Ray 03/23/17 00:00 IMPRESSION: No acute findings. Stool retention as above. Chest X-Ray 03/24/17 06:00 IMPRESSION: No significant interval change. Assessment & Plan - Diagnosis (1) PRES (posterior reversible encephalopathy syndrome) Is this a current diagnosis for this admission?: YesPlan: Patient MRI consistant with PRES. Patient presentation consistent with PRES with possible at home seizure, as she presented with a high CK, but was found down. Place patient on Keppra 500mg po bid. Possibly secondary to encephalitis, hypertension, or sepsis. Have yet to rule out HSV encephalitis. Patient was hypertensive on presentation. Discussed case with Dr. Corral of [facility] neurology and he agrees with keppra and outpatient follow up. May follow up at their clinic @[phone]. (2) Sepsis Qualifiers: Sepsis type: sepsis due to unspecified organism Qualified Code(s): A41.9 - Sepsis, unspecified organism Is this a current diagnosis for this admission?: YesPlan: Presented with fever and altered mental status. Patient also had elevated white count with tachycardia and tachypnea. However, HSV is still pending therefore we will continue to treat for encephalitis despite the low probability. Suspect pneumonia with sputum +for gram + coci. (3) Chronic pain Qualifiers: Chronic pain type: other chronic pain Qualified Code(s): G89.29 - Other chronic pain Is this a current diagnosis for this admission?: YesPlan: On methadone 10mg po q8 (4) Diabetes Qualifiers: Diabetes mellitus type: type 2 Diabetes mellitus complication status: with unspecified complications Diabetes mellitus rat exterminator insulin use: unspecified nursing home insulin use status Qualified Code(s): E11.8 - Type 2 diabetes mellitus with unspecified complications; Z79.4 - retirement (current) use of insulin Is this a current diagnosis for this admission?: YesPlan: Place patient on a diabetic diet and home medications. Her blood glucose has been optimal and didn't require any SSI in the last 24 hours. Stop accuchecks and SSI. (5) Encephalopathy Is this a current diagnosis for this admission?: YesPlan: Improving, but suffered some confusion overnight resulting in the loss of her central line. Secondary to underlying sepsis confounded by narcotic use. (6) Hypertension Qualifiers: Hypertension type: essential hypertension Qualified Code(s): I10 - Essential (primary) hypertension Is this a current diagnosis for this admission?: YesPlan: This is likely multifactorial from opiate withdrawal and essential hypertension. On Clonidine and lisinopril and continue as needed hydralazine. (7) Respiratory failure Qualifiers: Chronicity: acute Respiratory failure complication: hypercapnia Qualified Code(s): J96.02 - Acute respiratory failure with hypercapnia Is this a current diagnosis for this admission?: YesPlan: Extubated on 03/24/17 (8) Obesity Qualifiers: Obesity type: due to excess calories Obesity severity: morbid Qualified Code(s): E66.01 - Morbid (severe) obesity due to excess calories Is this a current diagnosis for this admission?: YesPlan: dietary consult (9) CVA (cerebral vascular accident) Qualifiers: CVA mechanism: unspecified Qualified Code(s): I63.9 - Cerebral infarction, unspecified Is this a current diagnosis for this admission?: NoPlan: ruled out at this time (10) Pneumonia Qualifiers: Pneumonia type: due to unspecified organism Laterality: unspecified laterality Lung location: unspecified part of lung Qualified Code(s) : J18.9 - Pneumonia, unspecified organism Is this a current diagnosis for this admission?: YesPlan: Patient is growing gram + cocci. On nebulized treatments and vancomycin. [place] ID and sens - Time Time Spent with patient: 35 or more minutes Medications reviewed and adjusted accordingly: Yes Within: within 48 hours - Inpatient Certification Based on my medical assessment, after consideration of the patient's comorbidities, presenting symptoms, or acuity I expect that the services needed warrant INPATIENT care.: Yes I certify that my determination is in accordance with my understanding of Medicare's requirements for reasonable and necessary INPATIENT services [42 CFR 412.3e].: Yes Medical Necessity: Need for IV Antibiotics Post Hospital Care: D/C Passenger Conductor Documentation
[2017-03-25 21:07] LABS: HSV I DNA Negative (Negative)
[2017-03-25] MEDS: LEVETIRACETAM 500 MG TABLET PO SCH (22:00)
[2017-03-26] MEDS: ACYCLOVIR SODIUM 750 MG in NORMAL SALINE 250 ML IV SCH ×2 (01:22→09:47)
[2017-03-26] MEDS: CLONIDINE HCL 0.1 MG TABLET PO SCH ×3 (06:14→22:04)
[2017-03-26] MEDS: METHADONE HCL 10 MG TABLET NG SCH ×3 (06:15→22:03)
[2017-03-26] MEDS: VANCOMYCIN HCL 1,000 MG in DEXTROSE 5%-WATER 250 ML IV SCH ×2 (06:16→18:50)
[2017-03-26] MEDS: METOPROLOL TARTRATE 50 MG TABLET NG SCH ×2 (09:48→22:04)
[2017-03-26] MEDS: FAMOTIDINE 20 MG TABLET NG SCH ×2 (09:48→22:02)
[2017-03-26] MEDS: LEVETIRACETAM 500 MG TABLET PO SCH ×2 (09:48→22:04)
[2017-03-26] MEDS: LISINOPRIL 10 MG TABLET NG SCH ×2 (09:48→22:03)
[2017-03-26] MEDS: ENOXAPARIN SODIUM INJ 40 MG/0.4 ML DISP.SYRIN SUBCUT SCH (09:49)
[2017-03-26] MEDS: LIDOCAINE 5% (700 MG) TRANSDERMAL ADH..PATCH TP SCH (09:51)
[2017-03-26] MEDS: ACETAMINOPHEN 325 MG TABLET NG PRN ×2 (09:54→22:05)
[2017-03-26] MEDS: POLYETHYLENE GLYCOL 3350 POWDER 17 GM/1 PACKET NG SCH (09:54)
[2017-03-26 10:10] LABS: ABSOLUTE BASOPHILS # (AUTO) 0.1 10^3/uL (0.0-0.2); ABSOLUTE EOSINOPHILS # (AUTO) 0.3 10^3/uL (0.0-0.6); ABSOLUTE LYMPHOCYTES (AUTO) 2.7 10^3/uL (0.5-4.7); ABSOLUTE MONOCYTES (AUTO) 0.7 10^3/uL (0.1-1.4); ABSOLUTE NEUT (AUTO) 3.7 10^3/uL (1.7-8.2); BASOPHILS % (AUTO) 1.1 % (0-2); EOSINOPHILS % (AUTO) 4.3 % (0-6); HEMATOCRIT 35.4 % (36.0-47.0); HEMOGLOBIN 11.7 g/dL (12.0-15.5); HGB HCT DIFFERENCE -0.3; LYMPHOCYTES % (AUTO) 35.5 % (13-45); MEAN CORPUSCULAR HEMOGLOBIN 28.8 pg (27.0-33.4); MEAN CORPUSCULAR VOLUME 87 fl (80-97); MONOCYTES % (AUTO) 9.2 % (3-13); RED BLOOD COUNT 4.06 10^6/uL (3.72-5.28); RED CELL DISTRIBUTION WIDTH 14.7 % (11.5-14.0); SEGMENTED NEUTROPHILS % (AUTO) 49.9 % (42-78); WHITE BLOOD COUNT 7.5 10^3/uL (4.0-10.5)
[2017-03-26 10:41] LABS: ANION GAP 9 (5-19); BLOOD UREA NITROGEN 17 mg/dL (7-20); CARBON DIOXIDE 25 mmol/L (22-30); CHLORIDE 105 mmol/L (98-107); CREATININE RESULT 0.73 mg/dL (0.52-1.25); GLUCOSE 97 mg/dL (75-110); POTASSIUM 4.4 mmol/L (3.6-5.0); SODIUM 139.1 mmol/L (137-145)
--- NOTE | 2017-03-26 12:51 | PSYCHOLOGICAL NOTE ---
Psych Note - Psych Note Psych Note: Behavior health team received consultation request for concerns of hallucinations. Patient disclosed that she is improving every day. She states that "all I remember is my son saying 'Come on momma quit joking'." States that she has never taken any medication incorrectly before. She states that doctors think that she may have had a stroke. Patient states she has never had a stroke in her past. She continued to state that she used to work at [employer]. She continues states that she worked there for 8 years. She continues to disclose that she feels the same there is no services for people. Patient correctly identified the year however identified the day as March 24. Patient states she knows the current president is Abhishek but does not like him and when asked who the president was previous to Abhishek the patient stated "I liked that one, it was Obama." Patient is alert and orientated to person, place, time and circumstance. Mood is euthymic with congruent affect. patient denies suicidal and homicidal ideation. Patient denies auditory and visual hallucinations; patient is not demonstrating any behaviour congruent with responding to internal stimuli. No delusions are noted. Thought process organized and linear. Conversational speech was within normal rate, tone and prosody. Eye contact was well maintained. Intellectual abilities appear to be within average range. Attention and concentration were good. Insight, judgment, impulse control appear to be good. deferred R/O 799.59 (R41.9) unspecified neurocognitive disorder; clinician notes MRI results from 03/25/2017 indicate abnormal brain parenchymal signal without diffusion abnormality in the bilateral posterior frontal and parasagettal white matter likely posterior reversible encephalopathy syndrome. Impression\\plan: Patient is considered psychiatrically for discharge. Patient does not meet IVC criteria per [place] GS 122C. Patient denies suicidal and homicidal ideation. Patient is not in an acute psychosis. patient is recommended to follow-up with neurology. Dr. Mcelroy was consulted on the care and management of this patient.
--- NOTE | 2017-03-26 16:20 | PDOC PROGRESS REPORT ---
Subjective Progress Note for:: 03/26/17 Subjective:: Patient remains extubated doing well. She is feeling well. She denies new complaints. Denies chest pain, shortness of breath, nausea, vomiting, fever, chills, new onset weakness and constipation. Physical Exam Vital Signs: Temp Pulse Resp BP Pulse Ox 98.5 F 65 18 137/81 H 100 03/26/17 12:08 03/26/17 14:00 03/26/17 12:08 03/26/17 12:08 03/26/17 12:08 Intake & Output 03/25/17 03/26/17 03/27/17 06:59 06:59 06:59 Intake Total 3627 1632 350 Output Total 3590 800 Balance 37 832 350 Weight 92.2 kg 92.2 kg Exam: GENERAL: No acute distress HEENT: healing Left eye ecchymosis, Conjunctiva clear, nonicteric, moist mucous membranes, no JVD, midline trachea RESPIRATORY: CTAB CARDIAC: Regular rate and rhythm, no murmurs/gallops/rubs ABDOMEN: Soft, nondistended, nontender, positive bowel sounds, no rebound, no guarding EXTREMETIES: No edema, cyanosis, clubbing Neuro: CN 2-12 grossly intact without focal deficits, A+OX3 Psych: normal mood and affect SKIN: No rash; bilateral patellar ecchymosis Results Laboratory Results: 03/26/17 05:44 03/26/17 05:44 03/26/17 03/26/17 05:44 05:44 WBC 7.5 RBC 4.06 Hgb 11.7 L Hct 35.4 L MCV 87 MCH 28.8 MCHC 33.0 RDW 14.7 H Plt Count 196 Seg Neutrophils % 49.9 Lymphocytes % 35.5 Monocytes % 9.2 Eosinophils % 4.3 Basophils % 1.1 Absolute Neutrophils 3.7 Absolute Lymphocytes 2.7 Absolute Monocytes 0.7 Absolute Eosinophils 0.3 Absolute Basophils 0.1 Sodium 139.1 Potassium 4.4 Chloride 105 Carbon Dioxide 25 Anion Gap 9 BUN 17 Creatinine 0.73 Est GFR ( Amer) > 60 Est GFR (Non-Af Amer) > 60 Glucose 97 Calcium 9.0 03/23/17 22:10 Tracheal Aspirate Gram Stain - Final 03/23/17 22:10 Tracheal Aspirate Sputum Culture - Final Mrsa (Meth Resis Staph Aureus) Normal Dawn Absent 03/23/17 08:15 Creatine Kinase 729 H Impressions: Abdomen/Pelvis CT 03/22/17 08:11 IMPRESSION: 1. There is no acute abnormality in the abdomen or pelvis. 2. There is mild anterolisthesis of L4 on L5 there is mild anterior wedging at T11 that does not appear to be acute. Chest CT 03/22/17 08:11 IMPRESSION: There is mild subsegmental atelectasis with no acute cardiopulmonary disease. Head CT 03/22/17 08:11 IMPRESSION: Microvascular ischemic changes are suggested in the posterior parietal lobe on each side, left more than right. A small old or subacute infarct cannot be ruled out on the left. These findings are new since 01/24/2016. KUB X-Ray 03/23/17 00:00 IMPRESSION: No acute findings. Stool retention as above. Head MRI 03/25/17 00:00 IMPRESSION: Abnormal brain parenchymal signal without diffusion abnormality in the bilateral posterior frontal and parietal parasagittal white matter likely posterior reversible encephalopathy syndrome. Repeat scanning in 3 months would be useful for followup Chest X-Ray 03/25/17 06:00 IMPRESSION: NO ACUTE RADIOGRAPHIC FINDING IN THE CHEST. Assessment & Plan - Diagnosis (1) PRES (posterior reversible encephalopathy syndrome) Is this a current diagnosis for this admission?: YesPlan: Patient MRI consistant with PRES. Patient presentation consistent with PRES with possible at home seizure, as she presented with a high CK. Place patient on Keppra 500mg po bid. Probably secondary to hypertension. Patient was hypertensive on presentation. Ruled out HSV encephalitis. Discussed case with Dr. Corral of [facility] neurology and he agrees with keppra and outpatient follow up. May follow up at their clinic @[phone]. (2) Sepsis Qualifiers: Sepsis type: methicillin resistant Staphylococcus aureus Qualified Code(s): A41.02 - Sepsis due to Methicillin resistant Staphylococcus aureus Is this a current diagnosis for this admission?: YesPlan: Presented with fever and altered mental status. Patient also had elevated white count with tachycardia and tachypnea. 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 On Clonidine, metoprolol, and lisinopril and continue as needed hydralazine. (7) Respiratory failure Qualifiers: Chronicity: acute Respiratory failure complication: hypercapnia Qualified Code(s): J96.02 - Acute respiratory failure with hypercapnia Is this a current diagnosis for this admission?: YesPlan: Extubated on 03/24/17 (8) Pneumonia Qualifiers: Pneumonia type: due to unspecified organism Laterality: unspecified laterality Lung location: unspecified part of lung Qualified Code(s) : J18.9 - Pneumonia, unspecified organism Is this a current diagnosis for this admission?: YesPlan: Patient is growing MRSA Stop vanc and start bactrim ds 2 tab po bid check creatinine in the am (9) Obesity Qualifiers: Obesity type: due to excess calories Is this a current diagnosis for this admission?: YesPlan: dietary consult - Time Time Spent with patient: 45 minutes Time Spent with patient: 35 or more minutes Medications reviewed and adjusted accordingly: Yes Anticipated discharge: Home with Homehealth Within: within 24 hours - Inpatient Certification Based on my medical assessment, after consideration of the patient's comorbidities, presenting symptoms, or acuity I expect that the services needed warrant INPATIENT care.: Yes I certify that my determination is in accordance with my understanding of Medicare's requirements for reasonable and necessary INPATIENT services [42 CFR 412.3e].: Yes Post Hospital Care: D/C Performance Test Architect Documentation
[2017-03-26] MEDS: SULFAMETHOXAZOLE/TRIMETHOPRIM 800-160 MG TABLET PO SCH (18:45)
[2017-03-27] MEDS: METHADONE HCL 10 MG TABLET NG SCH (05:12)
[2017-03-27] MEDS: CLONIDINE HCL 0.1 MG TABLET PO SCH (05:14)
[2017-03-27 08:08] LABS: ANION GAP 10 (5-19); BLOOD UREA NITROGEN 15 mg/dL (7-20); CALCIUM 9.3 mg/dL (8.4-10.2); CARBON DIOXIDE 26 mmol/L (22-30); CHLORIDE 102 mmol/L (98-107); CREATININE RESULT 0.64 mg/dL (0.52-1.25); GLUCOSE 92 mg/dL (75-110); POTASSIUM 3.7 mmol/L (3.6-5.0); SODIUM 138.2 mmol/L (137-145)
[2017-03-27] MEDS: METOPROLOL TARTRATE 50 MG TABLET NG SCH (10:26)
[2017-03-27] MEDS: LEVETIRACETAM 500 MG TABLET PO SCH (10:26)
[2017-03-27] MEDS: FAMOTIDINE 20 MG TABLET NG SCH (10:26)
[2017-03-27] MEDS: SULFAMETHOXAZOLE/TRIMETHOPRIM 800-160 MG TABLET PO SCH (10:26)
[2017-03-27] MEDS: LISINOPRIL 10 MG TABLET NG SCH (10:28)
[2017-03-27] MEDS: ENOXAPARIN SODIUM INJ 40 MG/0.4 ML DISP.SYRIN SUBCUT SCH (10:29)
[2017-03-27] MEDS: LIDOCAINE 5% (700 MG) TRANSDERMAL ADH..PATCH TP SCH (10:29)
[2017-03-27] MEDS: POLYETHYLENE GLYCOL 3350 POWDER 17 GM/1 PACKET NG SCH (10:32)
[2017-03-27 12:36] VITALS: BP 141/70
--- NOTE | 2017-03-27 20:30 | PDOC DISCHARGE SUMMARY ---
General - Admit/Disc Date/PCP Admission Date/Primary Care Provider: 03/22/17 12:33 SINGH JAMESON MD Discharge Date: 03/27/17 - Discharge Diagnosis (1) PRES (posterior reversible encephalopathy syndrome) Is this a current diagnosis for this admission?: Yes (2) Sepsis Is this a current diagnosis for this admission?: Yes (3) Chronic pain Is this a current diagnosis for this admission?: Yes (4) Diabetes Is this a current diagnosis for this admission?: Yes (5) Encephalopathy Is this a current diagnosis for this admission?: Yes (6) Hypertension Is this a current diagnosis for this admission?: Yes (7) Respiratory failure Is this a current diagnosis for this admission?: Yes (8) Pneumonia Is this a current diagnosis for this admission?: Yes (9) Obesity Is this a current diagnosis for this admission?: Yes - Additional Information Resuscitation Status: Full Code Discharge Diet: Cardiac Discharge Activity: Activity As Tolerated, Walk Frequently Home Medications: Cetirizine HCl [Zyrtec 10 mg Tablet] 10 mg PO DAILYP PRN 03/22/17 Gabapentin [Neurontin 300 mg Capsule] 300 mg PO Q8 03/22/17 Methadone HCl 10 mg PO Q6 03/22/17 Omeprazole 20 mg PO DAILY 03/22/17 Clonidine HCl [Catapres 0.1 mg Tablet] 0.1 mg PO Q8 #90 tablet 03/27/17 Levetiracetam [Keppra 500 mg Tablet] 500 mg PO Q12 #60 tablet 03/27/17 Lidocaine [Lidoderm 5% (700 mg) Transdermal Patch] 2 patch TP DAILY #60 adh..patch 03/27/17 Lisinopril [Prinivil 10 mg Tablet] 20 mg NG Q12 #60 tablet 03/27/17 Metoprolol Tartrate [Lopressor 50 mg Tablet] 25 mg NG Q12 #60 tablet 03/27/17 Sulfamethoxazole/Trimethoprim [Septra-Ds 800-160 mg Tablet] 2 tab PO BID #40 tablet 03/27/17 History of Present Illness History of Present Illness: Please see H&P for full HPI Hospital Course Hospital Course: Patient is a 61-year-old female with a history of COPD, chronic opioid dependence, chronic back pain, hypertension, tobacco abuse who presented to the emergency department obtunded requiring intubation. After discussion with her family, it was revealed that patient had presented previously on Wednesday for admission to her primary care physician and was found to be extremely hypertensive. Over the weekend, patient became increasingly confused with headache and fever. Upon initial presentation, patient was thought to have meningitis or encephalitis, and LP was obtained. This was unrevealing and direct vision as well as HSV studies were negative.Initial CT in the emergency department revealed possible lacunar infarct in the parietal region as well as bilateral parietal enhancement.Patient was quickly weaned off of antibiotics. Patient was easily extubated. Patient did develop some sputum during her intubation which was cultured and found to have MRSA. This was sensitive to Bactrim. Upon extubation, patient received a MRI which revealed changes consistent with PRES. consultation with neurology at [facility], agreed with initiating patient on Keppra 500 mg p.o. twice daily and outpatient follow-up with neurology. Patient was felt to have this condition secondary to hypertension which was noted to be extreme upon admission 190/100's. Patient was seen by physical therapy and doing well. Had returned to her baseline mental function. Patient was discharged home in stable condition with home health to follow. Physical Exam Vital Signs: Temp Pulse Resp BP Pulse Ox 98.2 F 57 L 16 141/70 H 96 03/27/17 12:31 03/27/17 12:31 03/27/17 12:31 03/27/17 12:31 03/27/17 12:31 Intake & Output 03/26/17 03/27/17 03/28/17 06:59 06:59 06:59 Intake Total 1632 950 Output Total 800 0 Balance 832 950 Weight 92.2 kg 89.4 kg Exam: GENERAL: No acute distress HEENT: healing Left eye ecchymosis, Conjunctiva clear, nonicteric, moist mucous membranes, no JVD, midline trachea RESPIRATORY: CTAB CARDIAC: Regular rate and rhythm, no murmurs/gallops/rubs ABDOMEN: Soft, nondistended, nontender, positive bowel sounds, no rebound, no guarding EXTREMETIES: No edema, cyanosis, clubbing Neuro: CN 2-12 grossly intact without focal deficits, A+OX3 Psych: normal mood and affect SKIN: No rash; bilateral patellar ecchymosis Results Laboratory Results: 03/26/17 05:44 03/27/17 06:58 03/27/17 03/27/17 06:58 06:58 Sodium 138.2 Potassium 3.7 Chloride 102 Carbon Dioxide 26 Anion Gap 10 BUN 15 Creatinine 0.64 Est GFR ( Amer) > 60 Est GFR (Non-Af Amer) > 60 Glucose 92 Calcium 9.3 Triglycerides 139 03/23/17 08:15 Creatine Kinase 729 H Impressions: Abdomen/Pelvis CT 03/22/17 08:11 IMPRESSION: 1. There is no acute abnormality in the abdomen or pelvis. 2. There is mild anterolisthesis of L4 on L5 there is mild anterior wedging at T11 that does not appear to be acute. Chest CT 03/22/17 08:11 IMPRESSION: There is mild subsegmental atelectasis with no acute cardiopulmonary disease. Head CT 03/22/17 08:11 IMPRESSION: Microvascular ischemic changes are suggested in the posterior parietal lobe on each side, left more than right. A small old or subacute infarct cannot be ruled out on the left. These findings are new since 01/24/2016. KUB X-Ray 03/23/17 00:00 IMPRESSION: No acute findings. Stool retention as above. Head MRI 03/25/17 00:00 IMPRESSION: Abnormal brain parenchymal signal without diffusion abnormality in the bilateral posterior frontal and parietal parasagittal white matter likely posterior reversible encephalopathy syndrome. Repeat scanning in 3 months would be useful for followup Chest X-Ray 03/25/17 06:00 IMPRESSION: NO ACUTE RADIOGRAPHIC FINDING IN THE CHEST. Qualifiers PATEINT BEING DISCHARGED WITH ANY OF THE FOLLOWING DIAGNOSIS?: No Plan Time Spent: Greater than 30 Minutes
[2017-04-02 12:37] LABS: WEST NILE VIRUS RNA PCR RSLT Negative (.)
== END 2017-03-27 12:55 | disposition home health service (06) | DRG 871 ==
LOC: ER 07:57 → UNDOADMIN 12:00 → EH 12:00 → ICU 13:15 → 3W 03-24 23:13 → 5 03-27 09:37 → 3W 03-27 09:41
PROVIDERS: ADMIT Family Medicine; ATTEND Family Medicine
PROC: 009U3ZX Drainage of Spinal Canal, Percutaneous Approach, Diagnostic (ICD-10-PCS; principal; 2017-03-22)
PROC: 05HM33Z Insertion of Infusion Device into Right Internal Jugular Vein, Percutaneous Approach (ICD-10-PCS; 2017-03-22)
PROC: 0BH17EZ Insertion of Endotracheal Airway into Trachea, Via Natural or Artificial Opening (ICD-10-PCS; 2017-03-22)
DX: A41.9 Sepsis, unspecified organism (principal); I67.83 Posterior reversible encephalopathy syndrome; J18.9 Pneumonia, unspecified organism; J96.02 Acute respiratory failure with hypercapnia; G89.29 Other chronic pain; E66.01 Morbid (severe) obesity due to excess calories; Z79.899 Other long term (current) drug therapy; M54.9 Dorsalgia, unspecified; I10 Essential (primary) hypertension; Z86.14 Personal history of Methicillin resistant Staphylococcus aureus infection; E11.9 Type 2 diabetes mellitus without complications; M19.90 Unspecified osteoarthritis, unspecified site; Z88.8 Allergy status to other drugs, medicaments and biological substances
CPT/HCPCS: 36415; 51702; 70450; 70553; 71010; 71260; 74000; 74177; 80048; 80053; 80202; 81001; 82140; 82550; 82553; 82803; 82945; 82962; 83605; 83735; 84100; 84157; 84478; 84484; 85025; 85610; 86403; 86701; 87040; 87070; 87077; 87086; 87186; 87205; 87252; 87529; 87798; 89050; 93005; 93010; 94002; 94003; 94799; 96365; 96367; 96375; 99291; A9577; G8978-GP; G8979-GP; J0133; J0295; J0330; J0360; J0696; J1630; J1642; J1650; J1940; J2060; J2704; J3370; J3475; J3480; J3490; J7030; J7050; J7060

== ENCOUNTER 2017-06-20 11:41 | Emergency (ER) | payer MEDICARE ==
[2017-06-20] MEDS ORDERED: ONDANSETRON HCL INJ/PF 4 MG/2 ML SDV IV ONE ×2 (12:05→13:31)
--- NOTE | 2017-06-20 12:18 | ER Document Report ---
ED Medical Screen (RME) - General Chief Complaint: Vomiting Stated Complaint: VOMITING Time Seen by Provider: 06/20/17 12:04 Mode of Arrival: Ambulatory Information source: Patient TRAVEL OUTSIDE OF THE [place] IN LAST 30 DAYS: No - HPI Patient complains to provider of: Nausea and vomiting Notes: 06/20/17 12:18 Patient is a 61-year-old female presenting to the emergency room today complaining of nausea and vomiting since last night - Related Data Allergies/Adverse Reactions: atropine [Atropine] Allergy (Intermediate, Verified 06/20/17 12:02) Abnormal behavior sumatriptan [From Imitrex] Allergy (Verified 06/20/17 12:02) sumatriptan succinate [From Imitrex] Allergy (Verified 06/20/17 12:02) Past Medical History - Past Medical History Cardiac Medical History: Reports: Hx Hypertension, Hx Heart Murmur Denies: Hx Congestive Heart Failure, Hx Coronary Artery Disease, Hx Heart Attack Pulmonary Medical History: Denies: Hx Asthma, Hx Bronchitis, Hx COPD, Hx Pneumonia Neurological Medical History: Denies: Hx Cerebrovascular Accident, Hx Seizures Endocrine Medical History: Reports: Hx Diabetes Mellitus Type 2 Renal/ Medical History: Denies: Hx Peritoneal Dialysis GI Medical History: Musculoskeltal Medical History: Reports Hx Arthritis - generalized Infectious Medical History: Past Surgical History: Denies: Hx Pacemaker Physical Exam - Vital signs Vitals: Temp Pulse Resp BP Pulse Ox 100.1 F 69 16 177/91 H 97 06/20/17 11:59 06/20/17 11:59 06/20/17 11:59 06/20/17 11:59 06/20/17 11:59 Course - Vital Signs Vital signs: Temp Pulse Resp BP Pulse Ox 100.1 F 69 16 177/91 H 97 06/20/17 11:59 06/20/17 11:59 06/20/17 11:59 06/20/17 11:59 06/20/17 11:59
[2017-06-20 12:55] LABS: ABSOLUTE BASOPHILS # (AUTO) 0.1 10^3/uL (0.0-0.2); ABSOLUTE EOSINOPHILS # (AUTO) 0.1 10^3/uL (0.0-0.6); ABSOLUTE LYMPHOCYTES (AUTO) 1.8 10^3/uL (0.5-4.7); ABSOLUTE MONOCYTES (AUTO) 0.2 10^3/uL (0.1-1.4); ABSOLUTE NEUT (AUTO) 8.2 10^3/uL (1.7-8.2); EOSINOPHILS % (AUTO) 0.5 % (0-6); HEMATOCRIT 43.7 % (36.0-47.0); HEMOGLOBIN 15.6 g/dL (12.0-15.5); HGB HCT DIFFERENCE 3.1; LYMPHOCYTES % (AUTO) 17.6 % (13-45); MEAN CORPUSCULAR HEMOGLOBIN 31.4 pg (27.0-33.4); MEAN CORPUSCULAR HGB CONC 35.8 g/dL (32.0-36.0); MEAN CORPUSCULAR VOLUME 88 fl (80-97); RED BLOOD COUNT 4.98 10^6/uL (3.72-5.28); RED CELL DISTRIBUTION WIDTH 14.6 % (11.5-14.0); SEGMENTED NEUTROPHILS % (AUTO) 78.9 % (42-78); WHITE BLOOD COUNT 10.4 10^3/uL (4.0-10.5)
[2017-06-20 12:58] LABS: APPEARANCE,URINE CLEAR; BILIRUBIN,URINE NEGATIVE (NEGATIVE); GLUCOSE, URINE NEGATIVE (NEGATIVE); KETONES,URINE 20 mg/dL (NEGATIVE); LEUKOCYTE ESTERASE,URINE NEGATIVE (NEGATIVE); NITRITE,URINE NEGATIVE (NEGATIVE); PROTEIN,URINE 100 mg/dL (NEGATIVE); URINE SPECIFIC GRAVITY 1.029
[2017-06-20 13:04] LABS: BACTERIA,URINE TRACE /HPF
[2017-06-20 13:23] LABS: ALANINE AMINOTRANSFERASE 23 U/L (9-52); ALBUMIN 4.5 g/dL (3.5-5.0); ALKALINE PHOSPHATASE 94 U/L (38-126); ANION GAP 14 (5-19); ASPARTATE AMINO TRANSFERASE 18 U/L (14-36); BILIRUBIN,DIRECT 0.4 mg/dL (0.0-0.4); BILIRUBIN,TOTAL 0.4 mg/dL (0.2-1.3); BLOOD UREA NITROGEN 15 mg/dL (7-20); CALCIUM 10.5 mg/dL (8.4-10.2); CARBON DIOXIDE 22 mmol/L (22-30); CHLORIDE 109 mmol/L (98-107); CREATININE RESULT 0.83 mg/dL (0.52-1.25); GLUCOSE 94 mg/dL (75-110); LIPASE 50.1 U/L (23-300); POTASSIUM 4.5 mmol/L (3.6-5.0); SODIUM 145.1 mmol/L (137-145); TOTAL PROTEIN 8.1 g/dL (6.3-8.2)
[2017-06-20] MEDS ORDERED: NORMAL SALINE 1000 ML 1,000 ML IV ONE (13:31)
[2017-06-20] MEDS ORDERED: MORPHINE SULFATE 10 MG/ML INJ IV ONE (13:31)
[2017-06-20] MEDS ORDERED: ACETAMINOPHEN 325 MG TABLET PO ONE (13:31)
[2017-06-20] MEDS: NORMAL SALINE 1000 ML 1,000 ML IV PRN ×2 (14:01→14:08)
--- NOTE | 2017-06-20 15:25 | ER Document Report ---
ED General - General Chief Complaint: Vomiting Stated Complaint: VOMITING Time Seen by Provider: 06/20/17 12:04 Mode of Arrival: Ambulatory Information source: Patient Notes: 61-year-old female presents with complaints of nausea vomiting left lower quadrant abdominal pain. Patient on arrival temp was 100.1. She denies any fevers or chills she denies any diarrhea patient had recent admission for altered mental status TRAVEL OUTSIDE OF THE [place] IN LAST 30 DAYS: No - HPI Onset: Yesterday Onset/Duration: Persistent Quality of pain: Achy Severity: Mild Pain Level: 1 Associated symptoms: Fever, Nausea, Vomiting Exacerbated by: Denies Relieved by: Denies Similar symptoms previously: No Recently seen / treated by doctor: Yes - Related Data Allergies/Adverse Reactions: atropine [Atropine] Allergy (Intermediate, Verified 06/20/17 12:02) Abnormal behavior sumatriptan [From Imitrex] Allergy (Verified 06/20/17 12:02) sumatriptan succinate [From Imitrex] Allergy (Verified 06/20/17 12:02) Past Medical History - General Information source: Patient - Social History Smoking Status: Current Every Day Smoker Cigarette use (# per day): Yes Chew tobacco use (# tins/day): No Smoking Education Provided: No Frequency of alcohol use: None Drug Abuse: None Family History: None Patient has suicidal ideation: No Patient has homicidal ideation: No - Past Medical History Cardiac Medical History: Reports: Hx Hypertension, Hx Heart Murmur Denies: Hx Congestive Heart Failure, Hx Coronary Artery Disease, Hx Heart Attack Pulmonary Medical History: Denies: Hx Asthma, Hx Bronchitis, Hx COPD, Hx Pneumonia Neurological Medical History: Denies: Hx Cerebrovascular Accident, Hx Seizures Endocrine Medical History: Reports: Hx Diabetes Mellitus Type 2 Renal/ Medical History: Denies: Hx Peritoneal Dialysis GI Medical History: Musculoskeltal Medical History: Reports Hx Arthritis - generalized Infectious Medical History: Past Surgical History: Reports: Hx Cardiac Catheterization, Hx Hysterectomy. Denies: Hx Pacemaker - Immunizations Hx Diphtheria, Pertussis, Tetanus Vaccination: Yes Review of Systems - Review of Systems Notes: REVIEW OF SYSTEMS: CONSTITUTIONAL : Denies fever, chills, or sweats. Denies recent illness. EENT: Denies eye, ear, throat, or mouth pain or symptoms. Denies nasal or sinus congestion or discharge. Denies throat, tongue, or mouth swelling or difficulty swallowing. CARDIOVASCULAR: Denies chest pain. Denies palpitations or racing or irregular heart beat. Denies ankle edema. RESPIRATORY: Denies cough, cold, or chest congestion. Denies shortness of breath, difficulty breathing, or wheezing. GASTROINTESTINAL: Admits to abdominal pain nausea vomiting GENITOURINARY: Denies difficulty urinating, painful urination, burning, frequency, blood in urine, or discharge. FEMALE GENITOURINARY: Denies vaginal bleeding, heavy or abnormal periods, irregular periods. Denies vaginal discharge or odor. MUSCULOSKELETAL: Denies back or neck pain or stiffness. Denies joint pain or swelling. SKIN: Denies rash, lesions or sores. HEMATOLOGIC : Denies easy bruising or bleeding. LYMPHATIC: Denies swollen, enlarged glands. NEUROLOGICAL: Denies confusion or altered mental status. Denies passing out or loss of consciousness. Denies dizziness or lightheadedness. Denies headache. Denies weakness or paralysis or loss of use of either side. Denies problems with gait or speech. Denies sensory loss, numbness, or tingling. Denies seizures. PSYCHIATRIC: Denies anxiety or stress. Denies depression, suicidal ideation, or homicidal ideation. ALL OTHER SYSTEMS REVIEWED AND NEGATIVE. PHYSICAL EXAMINATION: GENERAL: Well-appearing, well-nourished and in no acute distress. HEAD: Atraumatic, normocephalic. EYES: Pupils equal round and reactive to light, extraocular movements intact, conjunctiva are normal. ENT: Nares patent, oropharynx clear without exudates. Moist mucous membranes. NECK: Normal range of motion, supple without lymphadenopathy LUNGS: Breath sounds clear to auscultation bilaterally and equal. No wheezes rales or rhonchi. HEART: Regular rate and rhythm without murmurs ABDOMEN: Soft, tender left lower quadrant no rebound or guarding Female : deferred Musculoskeletal: Normal range of motion, no pitting or edema. No cyanosis. NEUROLOGICAL: Cranial nerves grossly intact. Normal speech, normal gait. Normal sensory, motor exams PSYCH: Normal mood, normal affect. SKIN: Warm, Dry, normal turgor, no rashes or lesions noted. Dictation was performed using [employer] voice recognition software Physical Exam - Vital signs Vitals: Temp Pulse Resp BP Pulse Ox 100.1 F 69 16 177/91 H 97 06/20/17 11:59 06/20/17 11:59 06/20/17 11:59 06/20/17 11:59 06/20/17 11:59 Course - Re-evaluation Re-evalutation: 06/20/17 15:40 Lab is noted no significant abnormality, CT was sent to evaluate for any abscess or perforated diverticulitis 06/20/17 15:58 CT notes no significant abnormality patient otherwise looks well is in no distress. She will be discharged at this time as she is otherwise stable fat- containing hernias noted After performing a Medical Screening Examination, I estimate there is LOW risk for ACUTE APPENDICITIS, BOWEL OBSTRUCTION, ACUTE CHOLECYSTITIS, PERFORATED DIVERTICULITIS, INCARCERATED HERNIA, PANCREATITIS, PELVIC INFLAMMATORY DISEASE, PERFORATED ULCER, ECTOPIC , or TUBO-OVARIAN ABSCESS, thus I consider the discharge disposition reasonable. Also, there is no evidence or peritonitis , sepsis, or toxicity. I have reevaluated this patient multiple times and no significant life threatening changes are noted. The patient and I have discussed the diagnosis and risks, and we agree with discharging home with close follow-up with the understanding that symptoms and presentations can change. We also discussed returning to the Emergency Department immediately if new or worsening symptoms occur. We have discussed the symptoms which are most concerning (e.g., bloody stool, fever, changing or worsening pain, vomiting) that necessitate immediate return. - Vital Signs Vital signs: Temp Pulse Resp BP Pulse Ox 100.1 F 69 16 177/91 H 97 06/20/17 11:59 06/20/17 11:59 06/20/17 11:59 06/20/17 11:59 06/20/17 11:59 - Laboratory Result Diagrams: 06/20/17 12:30 06/20/17 12:30 Laboratory results interpreted by me: 06/20/17 06/20/17 06/20/17 12:30 12:30 12:30 Hgb 15.6 H RDW 14.6 H Seg Neutrophils % 78.9 H Monocytes % 2.0 L Sodium 145.1 H Chloride 109 H Calcium 10.5 H Urine Protein 100 H Urine Ketones 20 H Urine Blood MODERATE H Urine Urobilinogen 2.0 H - Diagnostic Test Radiology reviewed: Image reviewed, Reports reviewed - Report given to the patient Discharge - Discharge Clinical Impression: Abdominal pain Qualifiers: Abdominal location: generalized Qualified Code(s): R10.84 - Generalized abdominal pain Nausea & vomiting Qualifiers: Vomiting type: unspecified Vomiting Intractability: non-intractable Qualified Code(s): R11.2 - Nausea with vomiting, unspecified Condition: Stable Disposition: HOME, SELF-CARE Instructions: Abdominal Pain ([facility]) Referrals: RUSS ORTIZ PA-C [Primary Care Provider] - Follow up tomorrow
--- NOTE | 2017-06-20 15:56 | RADIOLOGY REPORT (SQ) ---
EXAM DESCRIPTION: CT ABD/PELVIS WITH IV ONLY COMPLETED DATE/TIME: 06/20/2017 2:37 pm REASON FOR STUDY: fever abd pain COMPARISON: 03/22/2017 CT abdomen pelvis TECHNIQUE: CT scan of the abdomen and pelvis performed using helical scanning technique with dynamic intravenous contrast injection. No oral contrast. Images reviewed with lung, soft tissue, and bone windows. Reconstructed coronal and sagittal MPR images reviewed. Delayed images for evaluation of the urinary system also acquired. All images stored on PACS. All CT scanners at this facility use dose modulation, iterative reconstruction, and/or weight based d osing when appropriate to reduce radiation dose to as low as reasonably achievable (ALARA). [facility]: Dose Right [facility]: CareDose [facility]: Dose Right [facility]: Teradose 4D [facility]: [facility] CONTRAST TYPE AND DOSE: contrast/concentration: Isovue 370.00 mg/ml; Total Contrast Delivered: 85.0 ml; Total Saline Delivered: 67.1 ml RENAL FUNCTION: Creatinine 0.8 RADIATION DOSE: Up-to-date CT equipment and radiation dose reduction techniques were employed. CTDIv ol: 12.7 - 17.5 mGy. DLP: 1580 mGy-cm.. LIMITATIONS: None. FINDINGS: LOWER CHEST: No significant findings. No nodules or infiltrates. Moderate retrocardiac hi atal hernia LIVER: Normal size. No masses. No dilated ducts. SPLEEN: Normal size. No focal lesions. PANCREAS: No masses. No significant calcifications. No adjacent inflammation or peripancreatic fluid collections. Pancreatic duct not dilated. GALLBLADDER: No identified stones by CT criteria. No inflammatory changes to suggest cholecystitis. ADRENAL GLANDS: No significant masses or asymmetry. RIGHT KIDNEY AND URETER: No solid masses. No significant calcifications. No hydronephrosis or hyd roureter. LEFT KIDNEY AND URETER: No solid masses. No significant calcifications. No hydronephrosis or hydr oureter. AORTA AND VESSELS: No aneurysm. No dissection. Renal arteries, SMA, celiac without stenosis. RETROPERITONEUM: No retroperitoneal adenopathy, hemorrhage or masses. BOWEL AND PERITONEAL CAVITY: No masses or inflammatory changes. No free fluid or peritoneal masses. APPENDIX: Not identified. No right lower quadrant inflammatory changes. PELVIS: No mass. No free fluid. Normal bladder. Post hysterectomy. Small post menopausal ovaries. ABDOMINAL WALL: Fat containing umbilical hernia, with a 3 cm abdominal wall defect, best shown on axi al image 69 and sagittal image 49 BONES: Diffuse degenerative disc and facet changes. OTHER: No other significant finding. IMPRESSION: No CT findings to explain history of right lower quadrant and left lower quadrant pain. No diverticulitis. No bowel obstruction. TECHNICAL DOCUMENTATION: JOB ID: [id number] Quality ID # [id number]: Final reports with documentation of one or more dose reduction techniques (e.g., Au tomated exposure control, adjustment of the mA and/or kV according to patient size, use of iterative reconstruction technique) 2010 [employer]- All Rights Reserved
[2017-06-20 16:28] VITALS: BP 125/70
== END 2017-06-20 16:44 | disposition home or self-care (01) ==
LOC: ER 11:41
DX: R11.2 Nausea with vomiting, unspecified (principal); R10.32 Left lower quadrant pain; R10.84 Generalized abdominal pain; R50.9 Fever, unspecified; F17.210 Nicotine dependence, cigarettes, uncomplicated; I10 Essential (primary) hypertension; E11.9 Type 2 diabetes mellitus without complications; Z90.710 Acquired absence of both cervix and uterus
CPT/HCPCS: 99284; 96361; 96374; 96375; 36415; 83690; 85025; 80053; 81001; 74177; A9270; J2270; J2405; J7030

== ENCOUNTER 2017-08-01 21:44 | Emergency (ER) | payer MEDICARE ==
[2017-08-01 22:06] VITALS: BP 128/72
[2017-08-01 22:31] LABS: ABSOLUTE BASOPHILS # (AUTO) 0.1 10^3/uL (0.0-0.2); ABSOLUTE EOSINOPHILS # (AUTO) 0.4 10^3/uL (0.0-0.6); ABSOLUTE LYMPHOCYTES (AUTO) 2.4 10^3/uL (0.5-4.7); ABSOLUTE MONOCYTES (AUTO) 0.6 10^3/uL (0.1-1.4); ABSOLUTE NEUT (AUTO) 5.4 10^3/uL (1.7-8.2); EOSINOPHILS % (AUTO) 4.5 % (0-6); HEMATOCRIT 37.5 % (36.0-47.0); HGB HCT DIFFERENCE 1.5; LYMPHOCYTES % (AUTO) 26.8 % (13-45); MEAN CORPUSCULAR HGB CONC 34.6 g/dL (32.0-36.0); MEAN CORPUSCULAR VOLUME 90 fl (80-97); MONOCYTES % (AUTO) 7.1 % (3-13); RED BLOOD COUNT 4.19 10^6/uL (3.72-5.28); RED CELL DISTRIBUTION WIDTH 14.3 % (11.5-14.0); SEGMENTED NEUTROPHILS % (AUTO) 60.6 % (42-78); WHITE BLOOD COUNT 8.9 10^3/uL (4.0-10.5)
[2017-08-01 22:49] LABS: ALANINE AMINOTRANSFERASE 38 U/L (9-52); ALKALINE PHOSPHATASE 79 U/L (38-126); ANION GAP 13 (5-19); ASPARTATE AMINO TRANSFERASE 58 U/L (14-36); BILIRUBIN,DIRECT 0.3 mg/dL (0.0-0.4); BILIRUBIN,TOTAL 0.3 mg/dL (0.2-1.3); BLOOD UREA NITROGEN 37 mg/dL (7-20); CALCIUM 9.4 mg/dL (8.4-10.2); CARBON DIOXIDE 27 mmol/L (22-30); CHLORIDE 109 mmol/L (98-107); CREATININE RESULT 1.18 mg/dL (0.52-1.25); GLUCOSE 135 mg/dL (75-110); POTASSIUM 3.9 mmol/L (3.6-5.0)
--- NOTE | 2017-08-01 23:31 | ER Document Report ---
ED General - General Chief Complaint: Dizziness Stated Complaint: DIZZINESS,FALL Time Seen by Provider: 08/01/17 23:18 Mode of Arrival: Ambulatory Information source: Patient TRAVEL OUTSIDE OF THE [place] IN LAST 30 DAYS: No - HPI Patient complains to provider of: cough and cold symptoms, nausea, possible elevated blood sugar, dizzy Onset: Yesterday - 2-3 days Onset/Duration: Waxing and waning Quality of pain: No pain Associated symptoms: None Exacerbated by: Denies Relieved by: Denies Similar symptoms previously: No Recently seen / treated by doctor: No Notes: Patient is a 61-year-old female presenting to the emergency room tonight complaining of dizziness, difficulty focusing, cough and cold symptoms with sinus pressure and pain at times, low-grade temperature, nausea without vomiting or diarrhea, no dysuria or hematuria, symptoms have been going on over the past few days, she was lightheaded and fell earlier today but denies any specific injury from her fall - Related Data Allergies/Adverse Reactions: atropine [Atropine] Allergy (Intermediate, Verified 06/20/17 12:02) Abnormal behavior sumatriptan [From Imitrex] Allergy (Verified 06/20/17 12:02) sumatriptan succinate [From Imitrex] Allergy (Verified 06/20/17 12:02) Past Medical History - General Information source: Patient - Social History Smoking Status: Current Every Day Smoker Family History: None Patient has suicidal ideation: No Patient has homicidal ideation: No - Past Medical History Cardiac Medical History: Reports: Hx Hypertension, Hx Heart Murmur Denies: Hx Congestive Heart Failure, Hx Coronary Artery Disease, Hx Heart Attack Pulmonary Medical History: Denies: Hx Asthma, Hx Bronchitis, Hx COPD, Hx Pneumonia Neurological Medical History: Denies: Hx Cerebrovascular Accident, Hx Seizures Endocrine Medical History: Reports: Hx Diabetes Mellitus Type 2 Renal/ Medical History: Denies: Hx Peritoneal Dialysis GI Medical History: Musculoskeltal Medical History: Reports Hx Arthritis - generalized Infectious Medical History: Past Surgical History: Reports: Hx Cardiac Catheterization, Hx Hysterectomy. Denies: Hx Pacemaker - Immunizations Hx Diphtheria, Pertussis, Tetanus Vaccination: Yes Review of Systems - Review of Systems Constitutional: No symptoms reported EENT: See HPI Cardiovascular: Dizziness, Lightheaded Respiratory: Cough Gastrointestinal: Nausea Genitourinary: No symptoms reported Female Genitourinary: No symptoms reported Musculoskeletal: No symptoms reported Skin: No symptoms reported Hematologic/Lymphatic: No symptoms reported Neurological/Psychological: No symptoms reported -: Yes All other systems reviewed and negative Physical Exam - Vital signs Vitals: Temp Pulse Resp BP Pulse Ox 98.4 F 84 20 128/72 H 96 08/01/17 21:59 08/01/17 21:59 08/01/17 21:59 08/01/17 21:59 08/01/17 21:59 Interpretation: Normal - General General appearance: Appears well, Alert - HEENT Head: Normocephalic, Atraumatic Eyes: Normal Pupils: PERRL - Respiratory Respiratory status: No respiratory distress Chest status: Nontender Breath sounds: Normal Chest palpation: Normal - Cardiovascular Rhythm: Regular Heart sounds: Normal auscultation Murmur: No - Abdominal Inspection: Normal Distension: No distension Bowel sounds: Normal Tenderness: Nontender Organomegaly: No organomegaly - Back Back: Normal, Nontender - Extremities General upper extremity: Normal inspection, Nontender, Normal color, Normal ROM , Normal temperature General lower extremity: Normal inspection, Nontender, Normal color, Normal ROM , Normal temperature, Normal weight bearing. No: Samantha's sign - Neurological Neuro grossly intact: Yes Cognition: Normal Orientation: AAOx4 [place] Coma Scale Eye Opening: Spontaneous [place] Coma Scale Verbal: Oriented [place] Coma Scale Motor: Obeys Commands Cinthia Coma Scale Total: 15 Speech: Normal Motor strength normal: LUE, RUE, LLE, RLE Sensory: Normal - Psychological Associated symptoms: Normal affect, Normal mood - Skin Skin Temperature: Warm Skin Moisture: Dry Skin Color: Normal Course - Re-evaluation Re-evalutation: 08/02/17 01:05 Laboratory findings discussed with patient at bedside which are relatively unremarkable, she was discharged with instructions for follow-up in is to return if any additional concerns, patient acknowledges understanding and agreement with this plan - Vital Signs Vital signs: Temp Pulse Resp BP Pulse Ox 98.4 F 84 20 128/72 H 96 08/01/17 21:59 08/01/17 21:59 08/01/17 21:59 08/01/17 21:59 08/01/17 21:59 - Laboratory Result Diagrams: 08/01/17 22:15 08/01/17 22:15 Laboratory results interpreted by me: 08/01/17 08/01/17 08/01/17 22:15 22:15 22:37 RDW 14.3 H Sodium 149.0 H Chloride 109 H BUN 37 H Est GFR ( Amer) 57 L Est GFR (Non-Af Amer) 47 L Glucose 135 H POC Glucose 170 H AST 58 H Urine Blood 08/01/17 23:18 RDW Sodium Chloride BUN Est GFR ( Amer) Est GFR (Non-Af Amer) Glucose POC Glucose AST Urine Blood SMALL H Discharge - Discharge Clinical Impression: Viral upper respiratory illness Condition: Stable Disposition: HOME, SELF-CARE Instructions: Upper Respiratory Illness ([facility]), Viral Syndrome ([facility]) Additional Instructions: Follow up with your primary care provider in one to 2 days. Return to the emergency room immediately if symptoms worsen or any additional concerns.
[2017-08-01 23:37] LABS: APPEARANCE,URINE CLEAR; BILIRUBIN,URINE NEGATIVE (NEGATIVE); GLUCOSE, URINE NEGATIVE (NEGATIVE); KETONES,URINE NEGATIVE (NEGATIVE); LEUKOCYTE ESTERASE,URINE NEGATIVE (NEGATIVE); NITRITE,URINE NEGATIVE (NEGATIVE); PROTEIN,URINE NEGATIVE (NEGATIVE); URINE SPECIFIC GRAVITY 1.027; UROBILINOGEN,URINE NEGATIVE mg/dL (<2.0)
== END 2017-08-02 00:05 | disposition home or self-care (01) ==
LOC: ER 21:44
DX: J06.9 Acute upper respiratory infection, unspecified (principal); B97.89 Other viral agents as the cause of diseases classified elsewhere; R42 Dizziness and giddiness; R50.9 Fever, unspecified; R11.0 Nausea; F17.200 Nicotine dependence, unspecified, uncomplicated; W19.XXXA Unspecified fall, initial encounter
CPT/HCPCS: 36415; 80053; 81001; 82962; 85025; 99284

== ENCOUNTER 2017-09-01 18:29 | Emergency (ER) | payer MEDICARE ==
[2017-09-01 18:45] VITALS: BP 139/64
--- NOTE | 2017-09-01 20:49 | ER Document Report ---
ED General - General Chief Complaint: Altered Mental Status Stated Complaint: CONGESTION Time Seen by Provider: 09/01/17 19:46 TRAVEL OUTSIDE OF THE [place] IN LAST 30 DAYS: No - HPI Notes: Patient is a 61-year-old female who presents the ED complaining of bilateral lower extremity edema 3 days. Patient states that she does have a history of lower extremity edema and does have a fluid pill at home, but has not been taking any. Patient states that she was diagnosed with pneumonia 4 days ago and is currently on Levaquin and an inhaler. Patient states that she continues to have an occasional cough, but is otherwise feeling well. Patient notes a medical history significant for hypertension, chronic back pain, and venous insufficiency. Patient's son was mostly concerned about the swelling which is what brought her in. Patient is eating and drinking without difficulties. She is urinating normally and having normal bowel movements. Patient has no other concerns or complaints at this time. Denies any headache, fever, head injury, neck pain, changes in vision/speech/mentation/hearing, URI, sore throat, chest pain, palpitations, syncope, shortness of breath, dyspnea, abdominal pain, nausea/vomiting/diarrhea, urinary retention, dysuria, hematuria, loss of control of bowel or bladder, numbness/tingling, saddle anesthesia, muscle paralysis/weakness, or rash. - Related Data Allergies/Adverse Reactions: atropine [Atropine] Allergy (Intermediate, Verified 09/01/17 18:32) Abnormal behavior sumatriptan [From Imitrex] Allergy (Verified 09/01/17 18:32) sumatriptan succinate [From Imitrex] Allergy (Verified 09/01/17 18:32) Past Medical History - Social History Smoking Status: Unknown if Ever Smoked Family History: None - Past Medical History Cardiac Medical History: Reports: Hx Hypertension, Hx Heart Murmur Denies: Hx Congestive Heart Failure, Hx Coronary Artery Disease, Hx Heart Attack Pulmonary Medical History: Denies: Hx Asthma, Hx Bronchitis, Hx COPD, Hx Pneumonia Neurological Medical History: Denies: Hx Cerebrovascular Accident, Hx Seizures Endocrine Medical History: Reports: Hx Diabetes Mellitus Type 2 Renal/ Medical History: Denies: Hx Peritoneal Dialysis GI Medical History: Musculoskeltal Medical History: Reports Hx Arthritis - generalized Infectious Medical History: Past Surgical History: Reports: Hx Cardiac Catheterization, Hx Hysterectomy. Denies: Hx Pacemaker - Immunizations Hx Diphtheria, Pertussis, Tetanus Vaccination: Yes Review of Systems - Review of Systems Notes: REVIEW OF SYSTEMS: CONSTITUTIONAL : Denies fever, chills, or sweats. Denies recent illness. EENT: Denies eye, ear, throat, or mouth pain or symptoms. Denies nasal or sinus congestion or discharge. Denies throat, tongue, or mouth swelling or difficulty swallowing. CARDIOVASCULAR: Denies chest pain. Denies palpitations or racing or irregular heart beat. RESPIRATORY: see hpi GASTROINTESTINAL: Denies abdominal pain or distention. Denies nausea, vomiting , or diarrhea. Denies blood in vomitus, stools, or per rectum. Denies black, tarry stools. Denies constipation. GENITOURINARY: Denies difficulty urinating, painful urination, burning, frequency, blood in urine, or discharge. MUSCULOSKELETAL: Denies back or neck pain or stiffness. Denies joint pain or swelling. SKIN: Denies rash, lesions or sores. NEUROLOGICAL: Denies confusion or altered mental status. Denies passing out or loss of consciousness. Denies dizziness or lightheadedness. Denies headache. Denies weakness or paralysis or loss of use of either side. Denies problems with gait or speech. Denies sensory loss, numbness, or tingling. Denies seizures. PSYCHIATRIC: Denies anxiety or stress. Denies depression, suicidal ideation, or homicidal ideation. ALL OTHER SYSTEMS REVIEWED AND NEGATIVE. Dictation was performed using [employer] voice recognition software Physical Exam - Vital signs Vitals: Temp Pulse Resp BP Pulse Ox 98.5 F 60 16 139/64 H 93 09/01/17 18:41 09/01/17 18:41 09/01/17 18:41 09/01/17 18:41 09/01/17 18:41 Notes: PHYSICAL EXAMINATION: GENERAL: Well-appearing, well-nourished and in no acute distress. A&Ox4 HEAD: Atraumatic, normocephalic. EYES: Pupils equal round and reactive to light, extraocular movements intact, sclera anicteric, conjunctiva are normal. vis patel intact ENT: EAC clear b/l. TM's intact b/l without erythema, fluid, or perforation. Nares patent and without discharge. oropharynx clear without exudates. No tonsilar hypertrophy or erythema. Moist mucous membranes. No sinus tenderness. NECK: Normal range of motion, supple without lymphadenopathy LUNG: + mild wheeze rt lung, mostly clears with cough HEART: Regular rate and rhythm without murmurs, rubs, gallops. ABDOMEN: Soft, nontender, nondistended abdomen. No guarding, no rebound. No masses appreciated. Normal bowel sounds present. No CVA tenderness bilaterally. Musculoskeletal: Ext b/l: FROM to passive/active. Strength 5+/5. No focal deficits. Samantha neg b/l. No calf erythema or swelling. Extremities: No cyanosis, clubbing, or edema b/l. Peripheral pulses 2+. Capillary refill less than 3 seconds. NEUROLOGICAL: NIH 0. MMSE intact. Cranial nerves grossly intact. Normal speech , normal gait. Normal sensory, motor exams. Pronator drift negative. KIRT's intact. romberg neg. Heel:monroe, finger: nose intact. PSYCH: Normal mood, normal affect. SKIN: Warm, Dry, normal turgor, no rashes or lesions noted. Course - Re-evaluation Re-evalutation: 09/01/17 22:30 Patient is an afebrile, well-hydrated, 61-year-old female who presents the ED with bilateral lower extremity edema, suspect venous insufficiency. vitals are stable. PE is otherwise unremarkable. Chest x-ray was unremarkable for any acute pathology which most likely indicates that her antibiotic has been working well for her diagnosis of pneumonia 4 days ago. MMSE intact. I did use the doppler to assess pulses were present to the b/l LE's. Pt has 1-2+ pitting edema b/l ankles and trace prox to the knee b/l. Low suspicion for any DVT, cellulitis, ACS, PE, pneumothorax, pericarditis, dissection, respiratory compromise, severe dehydration, sepsis, meningitis, or other systemic emergent condition at this time. Patient is aware that her condition can change from initial presentation and she needs to monitor symptoms closely and seek medical attention for any acute changes. Pt directed to take her lasix twice daily x2- 3 days while closely monitoring blood pressure, elevate legs, and wear compression stockings. Recommend conservative measures for symptoms. Recheck with your PCM on Wednesday. Return to the ED with any worsening/concerning symptoms otherwise as reviewed in discharge. Patient is in agreement. - Vital Signs Vital signs: Temp Pulse Resp BP Pulse Ox 98.5 F 60 16 139/64 H 93 09/01/17 18:41 09/01/17 18:41 09/01/17 18:41 09/01/17 18:41 09/01/17 18:41 Discharge - Discharge Clinical Impression: Bilateral lower extremity edema, Cough Disposition: HOME, SELF-CARE Instructions: Edema, Peripheral ([facility]) Additional Instructions: Maintain adequate fluid intake Take your lasix twice daily for 2-3 days while monitoring your blood pressure closely to help reduce your edema. Elevate your legs and wear compression stockings as well* tylenol/ibuprofen as needed over the counter cold medication as needed for symptoms Humidified air may help for cough F/u: with your PCM in 2-3 days for a recheck Return to the ED with any fever, worsening pain, chest pain, palpitations, syncope, worsening BAH, neck pain/stiffness, shortness of breath, wheezing, drooling, trouble swallowing/breathing, abdominal pain, n/v/d, rash, or worsening/concerning symptoms otherwise. Forms: Elevated Blood Pressure Referrals: RUSS ORTIZ PA-C [NO LOCAL MD] - 09/03/17
--- NOTE | 2017-09-01 22:22 | RADIOLOGY REPORT (SQ) ---
EXAM DESCRIPTION: CHEST PA/LAT COMPLETED DATE/TIME: 09/01/2017 9:21 pm REASON FOR STUDY: cough COMPARISON: 03/25/2017. EXAM PARAMETERS: NUMBER OF VIEWS: two views TECHNIQUE: Digital Frontal and Lateral radiographic views of the chest acquired. RADIATION DOSE: NA LIMITATIONS: none FINDINGS: LUNGS AND PLEURA: No opacities, masses or pneumothorax. No pleural effusion. MEDIASTINUM AND HILAR STRUCTURES: No masses or contour abnormalities. HEART AND VASCULAR STRUCTURES: Heart normal size. No evidence for failure. BONES: No acute findings. Degenerative changes with kyphosis. HARDWARE: None in the chest. OTHER: No other significant finding. IMPRESSION: NO SIGNIFICANT RADIOGRAPHIC FINDING IN THE CHEST. TECHNICAL DOCUMENTATION: JOB ID: [id number] [employer]- All Rights Reserved
== END 2017-09-01 22:32 | disposition home or self-care (01) ==
LOC: ER 18:29
DX: R60.9 Edema, unspecified (principal); R05 Cough; R41.82 Altered mental status, unspecified; I10 Essential (primary) hypertension; E11.9 Type 2 diabetes mellitus without complications; Z90.710 Acquired absence of both cervix and uterus
CPT/HCPCS: 71020; 99284

== ENCOUNTER 2017-11-04 15:41 | Emergency (ER) | payer MEDICARE ==
--- NOTE | 2017-11-04 16:55 | ER Document Report ---
ED Extremity Problem, Lower - General Chief Complaint: Foot Pain Stated Complaint: FOOT SWOLLEN Time Seen by Provider: 11/04/17 16:54 Notes: The patient is a 62-year-old female, past medical history hypertension, venous insufficiency, PVD, presents with 2 days of redness over the inside of her left foot. She saw her PCP, Russ frias, and was given a shot of Rocephin yesterday , but she was not placed on any oral antibiotics. She came in for follow-up visit today and the redness was noticed to be worsening. She was sent to the ER for further evaluation. Patient denies fevers, difficulty walking, injury, numbness, tingling or rash anywhere else. TRAVEL OUTSIDE OF THE [place] IN LAST 30 DAYS: No - Related Data Allergies/Adverse Reactions: atropine [Atropine] Allergy (Intermediate, Verified 09/01/17 18:32) Abnormal behavior sumatriptan [From Imitrex] Allergy (Verified 09/01/17 18:32) sumatriptan succinate [From Imitrex] Allergy (Verified 09/01/17 18:32) Past Medical History - General Information source: Patient - Social History Smoking Status: Current Every Day Smoker Family History: None - Past Medical History Cardiac Medical History: Reports: Hx Hypertension, Hx Heart Murmur Denies: Hx Congestive Heart Failure, Hx Coronary Artery Disease, Hx Heart Attack Pulmonary Medical History: Denies: Hx Asthma, Hx Bronchitis, Hx COPD, Hx Pneumonia Neurological Medical History: Denies: Hx Cerebrovascular Accident, Hx Seizures Endocrine Medical History: Reports: Hx Diabetes Mellitus Type 2 Renal/ Medical History: Denies: Hx Peritoneal Dialysis GI Medical History: Musculoskeltal Medical History: Reports Hx Arthritis - generalized Infectious Medical History: Past Surgical History: Reports: Hx Cardiac Catheterization, Hx Hysterectomy. Denies: Hx Pacemaker - Immunizations Hx Diphtheria, Pertussis, Tetanus Vaccination: Yes Review of Systems - Review of Systems Notes: REVIEW OF SYSTEMS: CONSTITUTIONAL: -fevers, -chills EENT: -eye pain, -difficulty swallowing, -nasal congestion CARDIOVASCULAR: -chest pain, -syncope. RESPIRATORY: -cough, -SOB GASTROINTESTINAL: -abdominal pain, -nausea, -vomiting, -diarrhea GENITOURINARY: -dysuria, -hematuria MUSCULOSKELETAL: -back pain, -neck pain SKIN: +left foot redness HEMATOLOGIC: -easy bruising or bleeding. LYMPHATIC: -swollen, enlarged glands. NEUROLOGICAL: -altered mental status or loss of consciousness, -headache, - neurologic symptoms PSYCHIATRIC: -anxiety, -depression. ALL OTHER SYSTEMS REVIEWED AND NEGATIVE. Physical Exam - Vital signs Vitals: Temp Pulse Resp BP Pulse Ox 99.1 F 51 L 16 111/53 L 95 11/04/17 15:57 11/04/17 15:57 11/04/17 15:57 11/04/17 15:57 11/04/17 15:57 - Notes Notes: PHYSICAL EXAMINATION: GENERAL: Well-appearing, well-nourished and in no acute distress. HEAD: Atraumatic, normocephalic. EYES: Pupils equal round and reactive to light, extraocular movements intact, sclera anicteric, conjunctiva are normal. ENT: nares patent, oropharynx clear without exudates. Moist mucous membranes. NECK: Normal range of motion, supple without lymphadenopathy LUNGS: Breath sounds clear to auscultation bilaterally and equal. No wheezes rales or rhonchi. HEART: Regular rate and rhythm without murmurs ABDOMEN: Soft, nontender, normoactive bowel sounds. No guarding, no rebound. No masses appreciated. EXTREMITIES: Small area of erythema around medial left foot up to ankle, strong distal pulses. Normal range of motion, no pitting or edema. No cyanosis. NEUROLOGICAL: Cranial nerves grossly intact. Normal speech, normal gait. Normal sensory and motor exams. PSYCH: Normal mood, normal affect. Course - Re-evaluation Re-evalutation: Patient appears very well. She is afebrile and has no signs of sepsis. She only received 1 dose of IM Rocephin by her primary care provider. Looking through old records, she has grown out MRSA that is susceptible to Bactrim. Will place her on oral Bactrim with very strict return precautions. - Vital Signs Vital signs: Temp Pulse Resp BP Pulse Ox 99.1 F 51 L 16 111/53 L 95 11/04/17 15:57 11/04/17 15:57 11/04/17 15:57 11/04/17 15:57 11/04/17 15:57 - Diagnostic Test Radiology reviewed: Image reviewed, Reports reviewed Radiology results interpreted by me: Left foot x-ray: NAD Discharge - Discharge Clinical Impression: Cellulitis of foot, left Condition: Stable Disposition: HOME, SELF-CARE Additional Instructions: MRSA CELLULITIS: You have an infection of your skin and underlying soft tissues called cellulitis. This is due to bacteria, which can enter through any break in the skin, or even through an irritated hair follicle. Untreated, cellulitis will usually worsen and may form an abscess which requires draining. Although many bacterial organisms can cause cellulitis and abscess formations, the most likely bacteria is Methicillin-Resistant Staph Aureus, or MRSA for short. Antibiotics are required. Usually, warm packs or warm soaks, and elevation of the infected area are recommended. You should start getting better within 24 to 36 hours. Most infections respond quickly to the right medication. Follow-up care is important, however, to check for abscess (boil) formation, unsuspected foreign body, or resistant infection. If you develop fever, chills, or if the area of infection is becoming rapidly more swollen or painful, call the doctor at once. ANTIBIOTIC THERAPY: You have been given an antibiotic prescription. It's important that you take all the medication, unless instructed otherwise by your physician. Failure to complete the entire course can result in relapse of your condition. Common side effects of antibiotics include nausea, intestinal cramping, or diarrhea. Women may develop vaginal yeast infections, and babies can get yeast (thrush) in the mouth following the use of antibiotics. Contact your physician if you develop significant side effects from this medication. Allergy to this antibiotic can result in hives, wheezing, faintness, or itching. If symptoms of allergy occur, stop the medication and call the doctor. TRIMETHOPRIM-SULFA: You have been given a prescription for trimethoprim-sulfa (TMS, Septra, Bactrim). This is a combination antibiotic of the sulfa class, often used for urinary tract infections, middle ear infections, bronchitis, shigella intestinal infection, and Pneumocystis pneumonia. TMS is usually well-tolerated. Occasional side effects include nausea and decreased appetite. Septra is not recommended for infants less than two months of age. Do not take this medication if you have experienced severe side effects or allergy to sulfa medicine. You should stop this medicine at once and contact your physician if you develop any rash, joint pain, shortness of breath, bruising, or jaundice ( yellow color in the skin), or if you develop any other new or unusual symptoms. FOLLOW-UP CARE: If you have been referred to a physician for follow-up care, call the physician s office for an appointment as you were instructed or within the next two days. If you experience worsening or a significant change in your symptoms, notify the physician immediately or return to the Emergency Department at any time for re-evaluation. Prescriptions: Sulfamethoxazole/Trimethoprim [Bactrim Ds Tablet] 1 each PO BID 7 Days tablet Referrals: RUSS FRIAS PA-C [NO LOCAL MD] - Follow up as needed
[2017-11-04] MEDS ORDERED: SULFAMETHOXAZOLE/TRIMETHOPRIM 800-160 MG TABLET PO ONE (16:59)
--- NOTE | 2017-11-04 17:54 | RADIOLOGY REPORT (SQ) ---
EXAM DESCRIPTION: FOOT LEFT COMPLETE COMPLETED DATE/TIME: 11/04/2017 5:35 pm REASON FOR STUDY: left foot pain COMPARISON: None. NUMBER OF VIEWS: Three views. TECHNIQUE: AP, lateral and oblique radiographic images acquired of the left foot. LIMITATIONS: None. FINDINGS: MINERALIZATION: Bony structures are osteopenic BONES: No acute fracture or dislocation. No worrisome bone lesions. JOINTS: No effusions. Degenerative changes are identified at the level of the talonavicular joint. SOFT TISSUES: No soft tissue swelling. No foreign body. OTHER: No other significant finding. IMPRESSION: Degenerative changes as noted above. NO RADIOGRAPHIC EVIDENCE OF ACUTE INJURY. TECHNICAL DOCUMENTATION: JOB ID: [id number] [employer]- All Rights Reserved
[2017-11-04 18:27] VITALS: BP 126/51
== END 2017-11-04 18:28 | disposition home or self-care (01) ==
LOC: ER 15:41
DX: L03.116 Cellulitis of left lower limb (principal); E11.51 Type 2 diabetes mellitus with diabetic peripheral angiopathy without gangrene; I10 Essential (primary) hypertension; F17.200 Nicotine dependence, unspecified, uncomplicated; Z88.6 Allergy status to analgesic agent; Z88.8 Allergy status to other drugs, medicaments and biological substances
CPT/HCPCS: 99283; 73630; A9270

== ENCOUNTER 2017-12-16 19:50 | Emergency (ER) | payer MEDICARE ==
--- NOTE | 2017-12-16 21:58 | ER Document Report ---
HPI - HPI Patient complains to provider of: foot pain Onset: This afternoon Onset/Duration: Persistent Quality of pain: Burning Pain Level: 5 Context: Patient presents complaining of pain to the left foot. Patient has a chronic ulcer that she is being managed by the wound clinic. Patient states she had a debridement today and since then has had increased foot pain. Patient denies any fever or new injury. Associated Symptoms: Other - Left foot pain. denies: Fever Exacerbated by: Movement Relieved by: Denies Similar symptoms previously: Yes Recently seen / treated by doctor: Yes - ROS ROS below otherwise negative: Yes Systems Reviewed and Negative: Yes All other systems reviewed and negative - CONSTITUTIONAL Constitutional: DENIES: Fever - GASTROINTESTINAL Gastrointestinal: DENIES: Nausea - REPRODUCTIVE LMP: na Reproductive: DENIES: : - MUSCULOSKELETAL Musculoskeletal: REPORTS: Extremity pain. DENIES: Swelling - DERM Skin Color: Normal Notes: Chronic foot wound Past Medical History - General Information source: Patient - Social History Smoking Status: Current Every Day Smoker Chew tobacco use (# tins/day): No Smoking Education Provided: Yes Frequency of alcohol use: None Drug Abuse: None Family History: None Patient has suicidal ideation: No Patient has homicidal ideation: No - Past Medical History Cardiac Medical History: Reports: Hx Hypertension, Hx Heart Murmur Denies: Hx Congestive Heart Failure, Hx Coronary Artery Disease, Hx Heart Attack Pulmonary Medical History: Denies: Hx Asthma, Hx Bronchitis, Hx COPD, Hx Pneumonia Neurological Medical History: Denies: Hx Cerebrovascular Accident, Hx Seizures Endocrine Medical History: Reports: Hx Diabetes Mellitus Type 2 Renal/ Medical History: Denies: Hx Peritoneal Dialysis GI Medical History: Musculoskeltal Medical History: Reports Hx Arthritis - generalized, Reports Other - Chronic pain Infectious Medical History: Past Surgical History: Reports: Hx Cardiac Catheterization, Hx Hysterectomy. Denies: Hx Pacemaker - Immunizations Hx Diphtheria, Pertussis, Tetanus Vaccination: Yes Vertical Provider Document - CONSTITUTIONAL Agree With Documented VS: Yes Exam Limitations: No Limitations General Appearance: WD/WN, No Apparent Distress Notes: Patient sleeping, arouses easily to voice - INFECTION CONTROL TRAVEL OUTSIDE OF THE [place] IN LAST 30 DAYS: No - HEENT HEENT: Atraumatic, Normocephalic - NECK Neck: Normal Inspection - RESPIRATORY Respiratory: Breath Sounds Normal, No Respiratory Distress - CARDIOVASCULAR Cardiovascular: Regular Rate, Regular Rhythm Pulses: Normal: Dorsalis pedis - MUSCULOSKELETAL/EXTREMETIES Musculoskeletal/Extremeties: MAEW, Tender - Tenderness to plantar surface of left foot at site where patient had recent debridement - NEURO Level of Consciousness: Awake, Alert, Appropriate Motor/Sensory: No Motor Deficit - DERM Integumentary: Warm, Dry. negative: Abscess Course - Re-evaluation Re-evalutation: 12/16/17 21:56 Consult with patient's tray checker Dr. Doe who saw patient today. States that he applied silver nitrate to stop her wound from bleeding and suspects that this is what is causing her increased pain. States that patient is currently being evaluated as an outpatient for possible Charcot and would like her placed in a splint and given crutches. States that no additional imaging studies need to be done tonight and he will see her in the office next week. - Vital Signs Vital signs: Temp Pulse Resp BP Pulse Ox 98.2 F 84 20 146/75 H 100 12/16/17 20:29 12/16/17 20:29 12/16/17 20:29 12/16/17 20:29 12/16/17 20:29 Procedures - Immobilization Left Foot Pre-Proc Neuro Vasc Exam: Normal Immobilizer type: Posterior ankle Performed by: PCT Post-Proc Neuro Vasc Exam: Normal Alignment checked and good: Yes Discharge - Discharge Clinical Impression: Left foot pain, chronic foot wound Condition: Stable Disposition: HOME, SELF-CARE Instructions: Use of Crutches ([facility]), Temporary Splint ([facility]) Additional Instructions: Return immediately for any new or worsening symptoms Followup with your primary care provider, call tomorrow to make a followup appointment Follow-up with Dr. Doe next week for recheck Prescriptions: Walker [Folding Walker] 1 each ASDIR PRN #1 each PRN Reason: Forms: Smoking Cessation Education Referrals: RACHEL DOE, LIZ [ACTIVE STAFF] - Follow up in 3-5 days
[2017-12-16] MEDS ORDERED: KETOROLAC TROMETHAMINE INJ/PF 30 MG/1 ML SDV IM ONE (22:03)
[2017-12-16 23:29] VITALS: BP 148/74
== END 2017-12-16 23:29 | disposition home or self-care (01) ==
LOC: ER 19:50
DX: E11.621 Type 2 diabetes mellitus with foot ulcer (principal); L97.529 Non-pressure chronic ulcer of other part of left foot with unspecified severity; M79.672 Pain in left foot; F17.200 Nicotine dependence, unspecified, uncomplicated; I10 Essential (primary) hypertension; Z98.890 Other specified postprocedural states
CPT/HCPCS: 99283; 96372; 29515; J1885

== ENCOUNTER 2018-01-20 21:50 | Observation (INO) | payer MEDICARE ==
[2018-01-20] MEDS ORDERED: ASPIRIN 81 MG TABLET, CHEWABLE PO ONE (22:15)
--- NOTE | 2018-01-20 23:33 | EKG REPORT ---
SEVERITY:- ABNORMAL ECG - SINUS TACHYCARDIA PROBABLE LEFT ATRIAL ABNORMALITY PROBABLE LEFT VENTRICULAR HYPERTROPHY : Confirmed by: Farhad Craig 20-Jan-2018 23:32:45
[2018-01-20 23:47] LABS: ABSOLUTE BASOPHILS # (AUTO) 0.1 10^3/uL (0.0-0.2); ABSOLUTE EOSINOPHILS # (AUTO) 0.1 10^3/uL (0.0-0.6); ABSOLUTE LYMPHOCYTES (AUTO) 2.8 10^3/uL (0.5-4.7); ABSOLUTE MONOCYTES (AUTO) 0.8 10^3/uL (0.1-1.4); ABSOLUTE NEUT (AUTO) 4.7 10^3/uL (1.7-8.2); BASOPHILS % (AUTO) 1.3 % (0-2); EOSINOPHILS % (AUTO) 1.1 % (0-6); HEMOGLOBIN 15.4 g/dL (12.0-15.5); LYMPHOCYTES % (AUTO) 32.9 % (13-45); MEAN CORPUSCULAR HEMOGLOBIN 29.9 pg (27.0-33.4); MEAN CORPUSCULAR HGB CONC 33.4 g/dL (32.0-36.0); MEAN CORPUSCULAR VOLUME 90 fl (80-97); MONOCYTES % (AUTO) 8.9 % (3-13); PLATELET COUNT 293 10^3/uL (150-450); RED BLOOD COUNT 5.14 10^6/uL (3.72-5.28); RED CELL DISTRIBUTION WIDTH 14.4 % (11.5-14.0); SEGMENTED NEUTROPHILS % (AUTO) 55.8 % (42-78); TOTAL CELLS COUNTED % (AUTO) 100 %; WHITE BLOOD COUNT 8.4 10^3/uL (4.0-10.5)
--- NOTE | 2018-01-20 23:56 | RADIOLOGY REPORT (SQ) ---
EXAM DESCRIPTION: CHEST SINGLE VIEW COMPLETED DATE/TIME: 01/20/2018 11:15 pm REASON FOR STUDY: chest pain COMPARISON: 09/01/2017 EXAM PARAMETERS: NUMBER OF VIEWS: One view. TECHNIQUE: Single frontal radiographic view of the chest acquired. RADIATION DOSE: NA LIMITATIONS: None. FINDINGS: LUNGS AND PLEURA: No acute opacities, masses or pneumothorax. No pleural effusion. MEDIASTINUM AND HILAR STRUCTURES: Stable. HEART AND VASCULAR STRUCTURES: Heart normal in size. Normal vasculature. BONES: No acute findings. HARDWARE: None in the chest. OTHER: No other significant finding. IMPRESSION: NO ACUTE RADIOGRAPHIC FINDING IN THE CHEST. TECHNICAL DOCUMENTATION: JOB ID: [id number] [place]-[id number] 2010 [employer]- All Rights Reserved Reading location - IP/workstation name: [email or web address]
--- NOTE | 2018-01-20 23:57 | ER Document Report ---
ED General - General Chief Complaint: Chest Pain Stated Complaint: DIFFICULTY BREATHING Time Seen by Provider: 01/20/18 23:13 Mode of Arrival: Ambulatory Information source: Patient Notes: 62-year-old female history of tachycardia no previous coronary artery disease no previous workup for such including stress test presents with complaints of chest pain sensation lasting 45 seconds to a minute at a time associated with shortness of breath difficulty breathing. Patient notes generalized weakness for the past week. TRAVEL OUTSIDE OF THE [place] IN LAST 30 DAYS: No - HPI Onset: Last week Onset/Duration: Persistent Quality of pain: Achy, Pressure Severity: Mild Pain Level: 1 Associated symptoms: Chest pain, Shortness of breath Exacerbated by: Denies Relieved by: Denies Similar symptoms previously: No Recently seen / treated by doctor: No - Related Data Allergies/Adverse Reactions: atropine [Atropine] Allergy (Intermediate, Verified 09/01/17 18:32) Abnormal behavior sumatriptan [From Imitrex] Allergy (Verified 09/01/17 18:32) sumatriptan succinate [From Imitrex] Allergy (Verified 09/01/17 18:32) Past Medical History - Social History Smoking Status: Current Every Day Smoker Cigarette use (# per day): Yes Chew tobacco use (# tins/day): No Smoking Education Provided: No Frequency of alcohol use: None Drug Abuse: None Family History: Reviewed & Not Pertinent Patient has suicidal ideation: No Patient has homicidal ideation: No - Past Medical History Cardiac Medical History: Reports: Hx Hypertension, Hx Heart Murmur Denies: Hx Congestive Heart Failure, Hx Coronary Artery Disease, Hx Heart Attack Pulmonary Medical History: Denies: Hx Asthma, Hx Bronchitis, Hx COPD, Hx Pneumonia Neurological Medical History: Denies: Hx Cerebrovascular Accident, Hx Seizures Endocrine Medical History: Reports: Hx Diabetes Mellitus Type 2 Renal/ Medical History: Denies: Hx Peritoneal Dialysis GI Medical History: Musculoskeltal Medical History: Reports Hx Arthritis - generalized Infectious Medical History: Past Surgical History: Reports: Hx Cardiac Catheterization, Hx Hysterectomy. Denies: Hx Pacemaker - Immunizations Hx Diphtheria, Pertussis, Tetanus Vaccination: Yes Review of Systems - Review of Systems Notes: REVIEW OF SYSTEMS: CONSTITUTIONAL : Denies fever, chills, or sweats. Denies recent illness. EENT: Denies eye, ear, throat, or mouth pain or symptoms. Denies nasal or sinus congestion or discharge. Denies throat, tongue, or mouth swelling or difficulty swallowing. CARDIOVASCULAR: Admits to chest pressure RESPIRATORY: Admits shortness of breath GASTROINTESTINAL: Denies abdominal pain or distention. Denies nausea, vomiting , or diarrhea. Denies blood in vomitus, stools, or per rectum. Denies black, tarry stools. Denies constipation. GENITOURINARY: Denies difficulty urinating, painful urination, burning, frequency, blood in urine, or discharge. FEMALE GENITOURINARY: Denies vaginal bleeding, heavy or abnormal periods, irregular periods. Denies vaginal discharge or odor. MUSCULOSKELETAL: Denies back or neck pain or stiffness. Denies joint pain or swelling. SKIN: Denies rash, lesions or sores. HEMATOLOGIC : Denies easy bruising or bleeding. LYMPHATIC: Denies swollen, enlarged glands. NEUROLOGICAL: Denies confusion or altered mental status. Denies passing out or loss of consciousness. Denies dizziness or lightheadedness. Denies headache. Denies weakness or paralysis or loss of use of either side. Denies problems with gait or speech. Denies sensory loss, numbness, or tingling. Denies seizures. PSYCHIATRIC: Denies anxiety or stress. Denies depression, suicidal ideation, or homicidal ideation. ALL OTHER SYSTEMS REVIEWED AND NEGATIVE. PHYSICAL EXAMINATION: GENERAL: Well-appearing, well-nourished and in no acute distress. HEAD: Atraumatic, normocephalic. EYES: Pupils equal round and reactive to light, extraocular movements intact, conjunctiva are normal. ENT: Nares patent, oropharynx clear without exudates. Moist mucous membranes. NECK: Normal range of motion, supple without lymphadenopathy LUNGS: Breath sounds clear to auscultation bilaterally and equal. No wheezes rales or rhonchi. HEART: Tachycardic ABDOMEN: Soft, nontender, nondistended abdomen. No guarding, no rebound. No masses appreciated. Female : deferred Musculoskeletal: Normal range of motion, no pitting or edema. No cyanosis. NEUROLOGICAL: Cranial nerves grossly intact. Normal speech, normal gait. Normal sensory, motor exams PSYCH: Normal mood, normal affect. SKIN: Warm, Dry, normal turgor, no rashes or lesions noted. Dictation was performed using [employer] recognition software Physical Exam - Vital signs Vitals: Temp Pulse Resp BP Pulse Ox 98.8 F 120 H 20 127/87 H 100 01/20/18 22:06 01/20/18 22:06 01/20/18 22:06 01/20/18 22:06 01/20/18 22:06 Course - Re-evaluation Re-evalutation: 01/21/18 02:00 Patient's presentation is most consistent with atypical chest pain, she overall looks well is in no distress she was noted to be tachycardic CT of the chest was performed no acute abnormality was noted, patient will be observed overnight given the complaints of chest pain associated with shortness of breath and weakness. For an ACS rule out - Vital Signs Vital signs: Temp Pulse Resp BP Pulse Ox 98.8 F 120 H 20 127/87 H 99 01/20/18 22:06 01/20/18 22:06 01/20/18 22:06 01/20/18 22:06 01/20/18 22:16 - Laboratory Result Diagrams: 01/20/18 23:32 01/20/18 23:32 Laboratory results interpreted by me: 01/20/18 01/20/18 23:32 23:32 RDW 14.4 H Sodium 147.3 H Chloride 111 H Carbon Dioxide 19 L BUN 28 H Glucose 112 H - Diagnostic Test Radiology reviewed: Image reviewed, Reports reviewed - EKG Interpretation by Me EKG shows normal: Sinus rhythm, Norris, Intervals, QRS Complexes Discharge - Discharge Clinical Impression: Chest pain Qualifiers: Chest pain type: unspecified Qualified Code(s): R07.9 - Chest pain, unspecified Condition: Stable Disposition: ADMITTED OBSERVATION Admitting Provider: Hospitalist Unit Admitted: Telemetry
[2018-01-20 23:59] LABS: ALANINE AMINOTRANSFERASE 14 U/L (9-52); ALBUMIN 4.4 g/dL (3.5-5.0); ALKALINE PHOSPHATASE 74 U/L (38-126); ANION GAP 17 (5-19); ASPARTATE AMINO TRANSFERASE 18 U/L (14-36); BILIRUBIN,DIRECT 0.4 mg/dL (0.0-0.4); BILIRUBIN,TOTAL 0.4 mg/dL (0.2-1.3); BLOOD UREA NITROGEN 28 mg/dL (7-20); CALCIUM 10.1 mg/dL (8.4-10.2); CARBON DIOXIDE 19 mmol/L (22-30); CHLORIDE 111 mmol/L (98-107); CREATINE KINASE 39 U/L (30-135); GLUCOSE 112 mg/dL (75-110); POTASSIUM 3.6 mmol/L (3.6-5.0); SODIUM 147.3 mmol/L (137-145); TOTAL PROTEIN 8.1 g/dL (6.3-8.2)
--- NOTE | 2018-01-21 01:11 | RADIOLOGY REPORT (SQ) ---
EXAM DESCRIPTION: CTA of the chest per PE protocol with contrast. CLINICAL HISTORY: chest pain COMPARISON: 03/22/2017 TECHNIQUE: CTA of the chest obtained following the uncomplicated intravenous administration of 100 mL of Isovue-370. 3-D/MIP reformatted images of the chest available for evaluation. DLP: 471.30 mGycm FINDINGS: Chest: Pulmonary arteries: Contrast bolus is adequate.No filling defects identified in the pulmonary arteries to suggest pulmonary embolus. Thyroid:No abnormalities of the visualized thyroid. Great Vessels:Aberrant right subclavian artery with otherwise normal configuration of the great vessels. Thoracic Aorta: Atherosclerotic calcification of the thoracic aorta. No dissection. Heart:No cardiomegaly, significant pericardial effusion, or coronary artery atherosclerosis Lymph Nodes:No enlarged mediastinal lymph nodes identified. Esophagus: Small hiatal hernia. Other:No additional findings. Lungs:No alveolar or interstitial airspace opacities identified. Pleura:No pleural effusion or pneumothorax. Trachea/Airways:No abnormalities of the visualized trachea or airways. Bones:No destructive osseous lesions. Degenerative change of the spine. Upper Abdomen:Limited images of the upper abdomen demonstrate no definite abnormalities of visualized portions of the liver, gallbladder, pancreas, spleen, adrenal glands, or kidneys. IMPRESSION: 1. No evidence of pulmonary embolus. 2. Small hiatal hernia. This exam was performed according to our departmental dose-optimization program, which includes automated exposure control, adjustment of the mA and/or kV according to patient size and/or use of iterative reconstruction technique.
--- NOTE | 2018-01-21 02:47 | PDOC H&P ---
History of Present Illness Admission Date/PCP: 01/21/18 02:30 RUSS ORTIZ PA-C History of Present Illness: ALEJANDRO DALEY is a 62 year old female patient with history of hypertension, type 2 diabetes mellitus and tobacco dependence presents with 1 day history of intermittent chest pain localized to her left precordium and described as pressure like and nonradiating. The chest pain lasts for about 45 seconds and subsided without intervention. Patient denies any fever chills, trauma to her chest, shortness of breath, diaphoresis, cough, nausea, vomiting, abdominal pain. Past Medical History Cardiac Medical History: Reports: Hypertension, Heart Murmur Denies: Congestive Heart Failure, Coronary Artery Disease, Myocardial Infarction Pulmonary Medical History: Denies: Asthma, Bronchitis, Chronic Obstructive Pulmonary Disease (COPD), Pneumonia Neurological Medical History: Denies: Seizures Endocrine Medical History: Reports: Diabetes Mellitus Type 2 GI Medical History: Musculoskeltal Medical History: Reports: Arthritis - generalized Hematology: Denies: Anemia Past Surgical History Past Surgical History: Reports: Cardiac Catheterization, Hysterectomy Denies: Pacemaker Social History Smoking Status: Current Every Day Smoker Frequency of Alcohol Use: None Hx Recreational Drug Use: No Family History Family History: Reviewed & Not Pertinent Parental Family History Reviewed: Yes Children Family History Reviewed: Yes Sibling(s) Family History Reviewed.: Yes Medication/Allergy Home Medications: Cetirizine HCl [Zyrtec 10 mg Tablet] 10 mg PO DAILYP PRN 03/22/17 Gabapentin [Neurontin 300 mg Capsule] 300 mg PO Q8 03/22/17 Methadone HCl 10 mg PO Q6 03/22/17 Omeprazole 20 mg PO DAILY 03/22/17 Clonidine HCl [Catapres 0.1 mg Tablet] 0.1 mg PO Q8 #90 tablet 03/27/17 Levetiracetam [Keppra 500 mg Tablet] 500 mg PO Q12 #60 tablet 03/27/17 Lidocaine [Lidoderm 5% (700 mg) Transdermal Patch] 2 patch TP DAILY #60 adh..patch 03/27/17 Lisinopril [Prinivil 10 mg Tablet] 20 mg NG Q12 #60 tablet 03/27/17 Metoprolol Tartrate [Lopressor 50 mg Tablet] 25 mg NG Q12 #60 tablet 03/27/17 Sulfamethoxazole/Trimethoprim [Septra-Ds 800-160 mg Tablet] 2 tab PO BID #40 tablet 03/27/17 Sulfamethoxazole/Trimethoprim [Bactrim Ds Tablet] 1 each PO BID 7 Days tablet 11/04/17 Walker [Folding Walker] 1 each MC ASDIR PRN #1 each 12/16/17 Allergies/Adverse Reactions: atropine [Atropine] Allergy (Intermediate, Verified 09/01/17 18:32) Abnormal behavior sumatriptan [From Imitrex] Allergy (Verified 09/01/17 18:32) sumatriptan succinate [From Imitrex] Allergy (Verified 09/01/17 18:32) Review of Systems Constitutional: PRESENT: as per HPI Eyes: PRESENT: as per HPI Nose, Mouth, and Throat: PRESENT: as per HPI Breasts: PRESENT: as per HPI Cardiovascular: PRESENT: as per HPI Respiratory: PRESENT: as per HPI Gastrointestinal: PRESENT: as per HPI Neurological: PRESENT: as per HPI Physical Exam Vital Signs: Temp Pulse Resp BP Pulse Ox 98.8 F 120 H 20 127/87 H 99 01/20/18 22:06 01/20/18 22:06 01/20/18 22:06 01/20/18 22:06 01/20/18 22:16 Results Impressions: Chest X-Ray 01/20/18 22:16 IMPRESSION: NO ACUTE RADIOGRAPHIC FINDING IN THE CHEST. Chest/Abdomen CTA 01/20/18 23:35 IMPRESSION: 1. No evidence of pulmonary embolus. 2. Small hiatal hernia. This exam was performed according to our departmental dose-optimization program, which includes automated exposure control, adjustment of the mA and/or kV according to patient size and/or use of iterative reconstruction technique. Assessment & Plan - Diagnosis (1) Chest pain Qualifiers: Chest pain type: unspecified Qualified Code(s): R07.9 - Chest pain, unspecified Is this a current diagnosis for this admission?: Yes Plan: Since patient has several risk factors for ACS will admit the patient for observation. Trend her cardiac exam and nuclear cardiac stress test in the morning. (2) Diabetes Qualifiers: Diabetes mellitus type: type 2 Is this a current diagnosis for this admission?: Yes Plan: We will put her on sliding scale. (3) Hypertension Qualifiers: Is this a current diagnosis for this admission?: Yes Plan: Continue her home metoprolol and lisinopril. - Time Critical Time spent with patient: 15-24 minutes
[2018-01-21] MEDS ORDERED: ONDANSETRON 4 MG TAB.RAPDIS PO ONE (02:57)
[2018-01-21] MEDS ORDERED: METOPROLOL TARTRATE 25 MG TABLET NG ONE (03:00)
[2018-01-21] MEDS ORDERED: METOPROLOL TARTRATE 25 MG TABLET PO ONE (03:08)
--- NOTE | 2018-01-21 03:11 | RADIOLOGY REPORT (SQ) ---
EXAM DESCRIPTION: CT ABDOMEN AND PELVIS WITHOUT CONTRAST CLINICAL HISTORY: weight loss COMPARISON: 06/20/2017 TECHNIQUE: CT of the abdomen and pelvis without IV contrast. Evaluation of the solid organs and vasculature is suboptimal due to lack of IV contrast. DLP: 447.51 mGy-cm FINDINGS: Lung Bases: The visualized lung bases are clear. Bones: No destructive bone lesions identified. Degenerative change of the spine, hips, and sacroiliac joints. Abdomen: Liver: The liver has normal size and density. Gallbladder: No calcified gallstones. Spleen, Pancreas, and Adrenal Glands: The spleen, pancreas, and adrenal glands are unremarkable. Kidneys: The kidneys have normal size and contour without evidence of hydronephrosis. No obstructing ureteral calculi. Previously administered IV contrast identified in the renal collecting system. Vasculature: Aortoiliac atherosclerosis. Atherosclerosis. Stomach: Small hiatal hernia. Other: Ventral fat-containing hernia. No definite free intraperitoneal air. No free fluid or lymphadenopathy. Pelvis: Bladder: Contrast identified in the urinary bladder. Bowel: Scattered diverticula of the colon. No pericolic fat stranding. No dilated loops of large or small bowel. Appendix: No evidence of appendicitis. Pelvis: Prior hysterectomy. IMPRESSION: 1. No acute inflammatory or obstructive process identified. 2. The ventricular system without evidence of acute diverticulitis. 3. Small hiatal hernia. This exam was performed according to our departmental dose-optimization program, which includes automated exposure control, adjustment of the mA and/or kV according to patient size and/or use of iterative reconstruction technique.
[2018-01-21] MEDS ORDERED: METOPROLOL TARTRATE 25 MG TABLET PO SCH (03:15)
[2018-01-21] MEDS: GABAPENTIN 300 MG CAPSULE PO SCH ×3 (05:40→21:16)
[2018-01-21] MEDS: METHADONE HCL 10 MG TABLET PO SCH ×3 (05:41→18:21)
[2018-01-21 08:00] LABS: CHOLESTEROL 286.64 mg/dL (0-200); TRIGLYCERIDES 53 mg/dL (<150)
[2018-01-21 08:11] LABS: DIRECT LDL 197 mg/dL (<100)
[2018-01-21] MEDS ORDERED: METOPROLOL TARTRATE 25 MG TABLET NG SCH (10:00)
[2018-01-21] MEDS: METOPROLOL TARTRATE 50 MG TABLET PO SCH ×2 (11:58→21:16)
[2018-01-21] MEDS: LEVETIRACETAM 500 MG TABLET PO SCH ×2 (11:58→21:16)
[2018-01-21] MEDS: ENOXAPARIN SODIUM INJ 40 MG/0.4 ML DISP.SYRIN SUBCUT SCH (11:59)
--- NOTE | 2018-01-21 12:39 | DRAGON STRESS TEST REPORT ---
INTRAVENOUS LEXISCAN CARDIOLITE STRESS TEST USING SINGLE PHOTON EMMISION COMPUTERIZED TOMOGRAPHIC. DATE OF PROCEDURE: January 21, 2018, INDICATION : Chest pain CARDIAC RISK FACTORS: Diabetes, hypertension, tobacco abuse RESTING EKG: Sinus rhythm with minor nonspecific T-wave changes. STRESS EKG: No significant ST segment changes noted with LexiScan bolus REASON FOR TERMINATION: Protocol. PROCEDURE REPORT: Baseline heart rate 86 beats per minute with blood pressure of 96/61. Patient had no significant complaints. Patient was bolused with Lexiscan 0.4 mg intravenously followed by saline bolus. Heart rate at 2 minutes post bolus 104 with a blood pressure of 98/62. 3 minutes post bolus heart rate 103 with blood pressure of 105/66. No significant EKG changes were noted. Patient had no significant complaints during the procedure or postprocedure. Patient injected with Aminophyllin 75 mg at 3 minutes or later after Lexiscan bolus. CONCLUSIONS: Normal EKG and hemodynamic response to IV LexiScan. NUCLEAR DATA: At rest the patient was given 10.82 millicuries of technetium 99 sestamibi injected intravenously. As per protocol rest gated SPECT images were obtained. On day of stress test, the patient was given intravenous LexiScan at a dose of 0.4 mg in 5 mL intravenously, followed by flush with normal saline. Subsequently the stress dose of 31.7 millicuries of technetium 99 sestamibi was injected intravenously. As per protocol stress gated images were obtained. NUCLEAR INTERPRETATION: Both raw and processed data were used for interpretation. Visual, qualitative, computer-generated quantitative data was used. There was good myocardial uptake of technetium compound. Motion artifact and soft tissue attenuations were noted. Increased visceral uptake was noted. No definitive areas of transient perfusion defect noted, No definitive areas of fixed perfusion defect or scars noted. EKG gated imaging showed LV EF at 54 %, rest and stress gated EF similar visually. T. I D. ratio was 1.20. Lung heart ratio noted to be within normal limits 0.29. No significant extracardiac and abnormal radiotracer activities were noted. RV free wall uptake was noted to be WNL. IMPRESSION: Also refer to comments under nuclear interpretation. Also test results needs to be interpreted in the context of pretest probability. 1. No definitive areas of transient perfusion defect noted. 2. There is no definitive scintigraphic evidence of myocardial infarction/scar. 3. EKG gated imaging shows left ventricular ejection fraction of approx. 54 %. 4. Clinical correlation requested as occasionally single vessel disease or balanced ischemia could be missed. In approximately 10% of the cases Lexiscan may not cause adequate vasodilatory stress. RECOMMENDATIONS: Aggressive risk factor modification and medical management. Further evaluation may be needed if continued symptoms or other high risk indicators are noted on clinical evaluation. Close cardiology follow-up is also recommended. Clinical correlation with echocardiogram derived ejection fraction. Inability to exercise by itself can lead to increased cardiovascular event risks. Consider cardiology consultation and or follow-up if clinically indicated. I am available for cardiology evaluation and consultation if requested by the plater hot dip, unless patient already has a tipple boss. STEVIE
[2018-01-21] MEDS ORDERED: ALBUTEROL SULFATE 0.083% NEB 2.5 MG/3 ML AMPUL NEB PRN (14:19)
[2018-01-21] MEDS ORDERED: REGADENOSON INJ 0.4 MG/5 ML DISP.SYRIN IV ONE (14:45)
[2018-01-21] MEDS ORDERED: AMINOPHYLLINE INJ/PF 250 MG/10 ML SDV IV ONE (14:45)
--- NOTE | 2018-01-21 18:28 | Progress Note ---
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 The patient was evaluated this morning and states that she is experiencing chest 'heaviness' and shortness of breath upon ambulation or any activity. 1. CHEST PAIN: Admit for chest pain observation. Cardiology consulted. Stress test completed, results benign. Echocardiogram completed, results pending. EKG shows normal sinus rhythm no acute infarct or ischemia. Troponin <0.012. 2. SOB: The patient endorses shortness of breath upon ambulation or any activity. She admits to a 20-11-jvgk-year history of smoking. The patient reports she was admitted to the hospital roughly 3-4 times last year for PNA/ bronchitis. It is quite possible that this patient has undiagnosed COPD. Plan for PFT and initiate inhaler treatments to aid with symptom relief 3. DEPRESSION: The patient endorses a long-standing history of depression. States she was previously on Zoloft for 2 months but it offered no relief of her symptoms, so the patient took upon herself to discontinue taking medication. She still reports feelings of sadness but denies suicidal or homicidal ideation. Plan to initiate Wellbutrin while inpatient and have patient follow up with PMD following discharge. 4. DM: Patient has a history of diabetes. Accu-Cheks before meals at bedtime. Humalog sliding scale insulin. 5. HTN: Patient endorses history of hypertension. Her blood pressure has remained relatively normotensive since admission. Continue home dose metoprolol and lisinopril.
--- NOTE | 2018-01-21 19:55 | PDOC CONSULTATION ---
Consultation Consult Date: 01/21/18 Attending physician:: IRMA MESSINA Consult reason:: Chest pain History of Present Illness Admission Date/PCP: 01/21/18 02:30 RUSS ORTIZ PA-C Patient complains of: Chest pain History of Present Illness: ALEJANDRO DALEY is a 62 year old female patient with history of hypertension, type 2 diabetes mellitus and tobacco dependence presents with 1 day history of intermittent chest pain localized to her left precordium and described as pressure like and nonradiating. The chest pain lasts for about 45 seconds and subsided without intervention. Patient denies any fever chills, trauma to her chest, shortness of breath, diaphoresis, cough, nausea, vomiting, abdominal pain. This history was reviewed and confirmed. Patient denied any prior history of angina, congestive heart failure, myocardial infarction. So far evaluation regarding cardiac enzymes and EKG has been negative. Patient already is scheduled for a stress test. A 2D echocardiogram has been ordered. Past Medical History Cardiac Medical History: Reports: Hypertension, Heart Murmur Denies: Congestive Heart Failure, Coronary Artery Disease, Myocardial Infarction Pulmonary Medical History: Denies: Asthma, Bronchitis, Chronic Obstructive Pulmonary Disease (COPD), Pneumonia Neurological Medical History: Denies: Seizures Endocrine Medical History: Reports: Diabetes Mellitus Type 2 GI Medical History: Musculoskeltal Medical History: Reports: Arthritis - generalized Psychiatric Medical History: Denies: Depression Hematology: Denies: Anemia Past Surgical History Past Surgical History: Reports: Cardiac Catheterization, Hysterectomy Denies: Pacemaker Social History Information Source: Patient Smoking Status: Current Every Day Smoker Cigarettes Packs Per Day: 0.5 Number of Years Smokin Frequency of Alcohol Use: None Hx Recreational Drug Use: No - Advance Directive Resuscitation Status: Full Code Surrogate healthcare decision maker:: Patient's son is the surrogate decision-maker Family History Family History: Reviewed & Not Pertinent Parental Family History Reviewed: Yes Children Family History Reviewed: Yes Sibling(s) Family History Reviewed.: Yes - Negative for premature coronary artery disease. Medication/Allergy Home Medications: Gabapentin [Neurontin 300 mg Capsule] 300 mg PO Q8 MDD LAST FILLED 11/01/1712/04 Methadone HCl 10 mg PO Q6 03/22/17 Metoprolol Tartrate [Lopressor 50 mg Tablet] 25 mg NG Q12 #60 tablet 03/27/17 Hydrocodone Bit/Acetaminophen [Hydrocodon-Acetaminophen 5-325] 1 tab PO DAILYP PRN MDD WITH WOUND CARE DRESSING BAUM 01/21/18 Lisinopril [Prinivil 10 mg Tablet] 10 mg PO DAILY 01/21/18 Allergies/Adverse Reactions: atropine [Atropine] Allergy (Intermediate, Verified 09/01/17 18:32) Abnormal behavior sumatriptan [From Imitrex] Allergy (Verified 09/01/17 18:32) sumatriptan succinate [From Imitrex] Allergy (Verified 09/01/17 18:32) Review of Systems Review of Systems: Please see history of present illness and past medical history as wall. Constitutional: No fever or chills reported. Head : No recent chronic headaches, recent head injury. Eyes: No recent eye pain, diplopia, redness, discharge, acute visual changes. Ears: No recent chronic ear pain, acute hearing loss, ear discharge. Oral cavity: No recent ulcerations, bleeding, oral cavity discomfort. Neck: No recent acute neck pain reported. Hematologic: No recent easy bruising or bleeding. Lymphatic: No recent lymph node enlargement reported. Cardiovascular system review: See history of present illness. Respiratory system review: No hemoptysis or blood clots in the lungs reported. Mild Shortness of breath on exertion Gastrointestinal system review: Negative for any recent acute hematemesis, melena. Genitourinary system review: No recent acute or chronic hematuria, flank pain, UTI etc. reported. Skin system review: Negative for any recent abnormal bruising, no rash, no pruritus reported. Neurologic: No prior history of strokes, mini strokes, seizure disorder. Psychologic: No history of major psychosis or major depression reported. Musculoskeletal: Minor aches and pains reported. No acute joint swelling reported. Endocrine: No recent polyuria, polydipsia, recent heat or cold intolerance. Physical Exam Vital Signs: Temp Pulse Resp BP Pulse Ox 98.2 F 79 17 106/70 97 01/21/18 16:28 01/21/18 16:28 01/21/18 16:28 01/21/18 16:28 01/21/18 16:28 Intake & Output 01/20/18 01/21/18 01/22/18 06:59 06:59 06:59 Intake Total 20 10 Balance 20 10 Weight 68.4 kg Exam: GENERAL: well-nourished and in no acute distress. Alert and oriented x3 HEAD: Atraumatic, normocephalic. EYES: Pupils equal round and reactive to light, extraocular movements intact, sclera anicteric, conjunctiva are normal. ENT: TMs normal, nares patent, oropharynx clear without exudates. Moist mucous membranes. No oral ulcerations or bleeding gums noted NECK: supple without lymphadenopathy. Trachea is central. No cervical or axillary lymphadenopathy noted. Carotids are 2+, JVD WNL LUNGS: Respiration seems nonlabored, no significant accessory muscle action noted. Breath sounds clear to auscultation bilaterally and equal noted. No wheezes rales or rhonchi noted. No significant dullness noted on percussion. CHEST: Palpation of the chest wall shows no significant chest wall tenderness. 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 ABDOMEN: Soft, no significant tenderness appreciated, normoactive bowel sounds. No guarding, no rebound. No rigidity noted . No masses appreciated. EXTREMITIES: Pedal pulses are 1-2+, no calf tenderness noted. No clubbing or cyanosis. negative pedal edema noted NEUROLOGICAL: Focused neurological exam showed no significant neurologic deficit. Normal speech, no focal weakness appreciated. PSYCH: Normal mood, normal affect. Judgment and insight within normal limits. SKIN: No significant ecchymosis, skin is noted to be warm. MUSCULOSKELETAL EXAM: No significant acute joint swelling noted. Results Laboratory Results: 01/21/18 01/21/18 06:04 06:04 Triglycerides 53 Cholesterol 286.64 H LDL Cholesterol Direct 197 H VLDL Cholesterol 11.0 HDL Cholesterol 52 TSH 3.08 01/21/18 06:04 Troponin I < 0.012 EKG Comments: Showed sinus rhythm without any significant ST-T wave changes Impressions: Chest X-Ray 01/20/18 22:16 IMPRESSION: NO ACUTE RADIOGRAPHIC FINDING IN THE CHEST. Chest/Abdomen CTA 01/20/18 23:35 IMPRESSION: 1. No evidence of pulmonary embolus. 2. Small hiatal hernia. This exam was performed according to our departmental dose-optimization program, which includes automated exposure control, adjustment of the mA and/or kV according to patient size and/or use of iterative reconstruction technique. Abdomen/Pelvis CT 01/21/18 02:11 IMPRESSION: 1. No acute inflammatory or obstructive process identified. 2. The ventricular system without evidence of acute diverticulitis. 3. Small hiatal hernia. This exam was performed according to our departmental dose-optimization program, which includes automated exposure control, adjustment of the mA and/or kV according to patient size and/or use of iterative reconstruction technique. Assessment & Plan - Diagnosis (1) Chest pain Qualifiers: Chest pain type: unspecified Qualified Code(s): R07.9 - Chest pain, unspecified Is this a current diagnosis for this admission?: Yes (2) Hyperlipidemia Qualifiers: Hyperlipidemia type: other hyperlipidemia Qualified Code(s): E78.4 - Other hyperlipidemia Is this a current diagnosis for this admission?: Yes (3) Hypertension Qualifiers: Hypertension type: essential hypertension Is this a current diagnosis for this admission?: Yes (4) Tobacco abuse Is this a current diagnosis for this admission?: Yes - Notes Notes: Chest pain: Patient has some typical and atypical features of chest pain. Cardiac enzymes so far has been negative. Electrocardiogram did not show any definitive ST segment changes. Multiple differential diagnoses exist in this patient. In descending order of probability this includes underlying coronary artery disease, gastroesophageal reflux, musculoskeletal pain, referred pain from elsewhere, anxiety panic disorder etc.Patient has significant cardiac risk factors, which indicates that there is a intermediate probability of chest discomfort coming from underlying CAD. Feel that it would need to be evaluated further. Discussed evaluation to assess this. In this regard risk benefits of nuclear stress test and other alternative processes were discussed in detail. The patient prefers to undergo nuclear stress test. The small risk of radiation , myocardial infarction, , cardiac arrhythmias, respiratory distress etc. were discussed. Patient understood the risks and gave informed consent. Nuclear stress test was therefore scheduled. For risk evaluation, patient is also being scheduled for a 2-D echocardiogram. Patient questions were answered. Blood pressure goal in this patient is 140/90 or less. This was discussed with the patient. Currently blood pressure under reasonable control. Better medication for this patient are DARREL inhibitor/ARB/beta kevin etc. discussed side effects of uncontrolled hypertension and also severe hypotension. Hyperlipidemia: LDL goal is less than 70. Recommend statin therapy at least intermediate or high dose, of high potency status. Periodic lipid panel and liver panel is indicated. Patient to report any significant muscle discomfort or other side effects. Tobacco abuse: Patient has history of chronic smoking. Discussed detrimental effect of chronic smoking including worsening COPD, increased risk of cardiovascular events, cerebrovascular events, cancer and multiple other side effects of smoking. The benefits of smoking cessation discussed. Patient unwilling to give acommitment to quit. - Time Time Spent: 30 to 50 Minutes - CODE STATUS was discussed, patient remains full code. Surrogate decision-maker unchanged. Multiple medical problems were addressed. More than 50% of the time spent coordinating care, discussing management plans with involved caregivers. Management plans discussed with involved personnels. Medical decision making was of moderate to high complexity , patient's has multiple comorbidities. Medications reviewed and adjusted accordingly: Yes
--- NOTE | 2018-01-21 20:00 | XCELERA REPORT ---
[address] [address] Transthoracic Echocardiogram Report Name: ALEJANDRO DALEY Age: 62 yrs Gender: Female : 1955 Patient Status: Inpatient Patient Location: [address] [place] [address] Study Date: 01/21/2018 10:44 AM Height: 67 in Weight: 150 lb BSA: 1.8 m2 Procedure: A complete two-dimensional transthoracic echocardiogram was performed (2D, M-mode, spectral and color flow Doppler). The study was technically adequate with some images being suboptimal in quality. Reason For Study: chest pain Ordering Physician: GREG MONTESINOS Performed By: Montse Leyva Interpretation Summary The left ventricular ejection fraction is normal. Doppler measurements suggest pseudonormalized left ventricular relaxation, which is associated with grade II/IV or mild to moderate diastolic dysfunction There is mild concentric left ventricular hypertrophy. The left ventricle is grossly normal size. Wall motion cannot be accurately commented on, but no definite regional wall motion abnormalities noted. The right ventricular systolic function is normal. The right atrium is normal in size The left atrial size is normal. There is a trace amount of mitral regurgitation There is no mitral valve stenosis. There is no aortic valve stenosis No aortic regurgitation is present. There is a trace or physiologic amount of tricuspid regurgitation There is no tricuspid stenosis. The aortic root is not well visualized but is probably normal size. The inferior vena cava was not well visualized There is no pericardial effusion. MMode/2D Measurements & Calculations RVDd: 2.1 cm LVIDd: 4.6 cm FS: 37.5 % Ao root diam: 3.1 cm IVSd: 0.96 cm LVIDs: 2.9 cm EDV(Teich): 99.5 ml LVPWd: 0.97 cmESV(Teich): 32.3 ml Ao root area: 7.6 cm2 EF(Teich): 67.6 % LVOT diam: 2.0 cm LVOT area: 3.0 cm2 Doppler Measurements & Calculations MV E max rufino: MV dec slope: Ao V2 max: LV V1 max P.3 cm/sec 220.5 cm/sec2 127.1 cm/sec 3.7 mmHg MV A max rufino: MV dec time: Ao max PG: LV V1 max: 76.0 cm/sec 0.15 sec 6.5 mmHg 96.6 cm/sec MV E/A: 0.44 SHAHIDA(V,D): 2.3 cm2 PA V2 max: 66.5 cm/sec PA max P.8 mmHg Left Ventricle The left ventricle is grossly normal size. There is mild concentric left ventricular hypertrophy. The left ventricular ejection fraction is normal. Doppler measurements suggest pseudonormalized left ventricular relaxation, which is associated with grade II/IV or mild to moderate diastolic dysfunction. Wall motion cannot be accurately commented on, but no definite regional wall motion abnormalities noted. Right Ventricle The right ventricle is grossly normal size. There is normal right ventricular wall thickness. The right ventricular systolic function is normal. Atria The right atrium is normal in size. The left atrial size is normal. Interarterial septum not well visualized and not well dopplered. Cannot comment on ASD/PFO presence. Mitral Valve The mitral valve is grossly normal. There is no mitral valve stenosis. There is a trace amount of mitral regurgitation. Aortic Valve The aortic valve is not well visualized secondary to technical limitations. There is no aortic valve stenosis. No aortic regurgitation is present. Tricuspid Valve The tricuspid valve is not well visualized secondary to technical limitations. There is no tricuspid stenosis. There is a trace or physiologic amount of tricuspid regurgitation. Pulmonic Valve The pulmonic valve is not well visualized. Great Vessels The aortic root is not well visualized but is probably normal size. The inferior vena cava was not well visualized. Effusions There is no pericardial effusion. : GREG MONTESINOS > Farhad Craig
[2018-01-21] MEDS ORDERED: ATORVASTATIN CALCIUM 40 MG TABLET PO SCH (22:00)
[2018-01-22] MEDS: METHADONE HCL 10 MG TABLET PO SCH ×3 (00:52→12:40)
[2018-01-22] MEDS: GABAPENTIN 300 MG CAPSULE PO SCH ×2 (05:42→13:29)
[2018-01-22] MEDS: ENOXAPARIN SODIUM INJ 40 MG/0.4 ML DISP.SYRIN SUBCUT SCH (09:47)
[2018-01-22] MEDS: LEVETIRACETAM 500 MG TABLET PO SCH (09:49)
[2018-01-22] MEDS: METOPROLOL TARTRATE 50 MG TABLET PO SCH (09:50)
[2018-01-22] MEDS ORDERED: ASPIRIN 81 MG TABLET, CHEWABLE PO SCH (10:00)
[2018-01-22] MEDS ORDERED: LISINOPRIL 10 MG TABLET PO SCH (10:00)
[2018-01-22 12:28] VITALS: BP 116/62
[2018-01-22] MEDS ORDERED: TIOTROPIUM BROMIDE DPI 5 CAP/KIT (18 MCG/CAP) IH SCH (13:00)
[2018-01-22] MEDS ORDERED: FLUTICASONE/SALMETEROL DISKUS 100-50 MCG/DOSE IH ONE (13:16)
--- NOTE | 2018-01-22 16:13 | PDOC PROGRESS REPORT ---
Subjective Progress Note for:: 01/22/18 Subjective:: Patient seems to be doing better. Pt is denying any chest arm or neck discomfort. Patient denying any PND, orthopnea. Patient denied any sustained palpitations, dizziness, syncope, near syncope. Patient denying any fever chills. Patient denying any other significant discomfort. Patient is maintaining sinus rhythm. Review of systems: Rest review of systems negative. Medications: Medications have been reviewed. Reason For Visit: CHEST PAIN Physical Exam Vital Signs: Temp Pulse Resp BP Pulse Ox 98.7 F 59 L 16 116/62 98 01/22/18 15:12 01/22/18 15:12 01/22/18 15:12 01/22/18 15:12 01/22/18 15:12 Intake & Output 01/21/18 01/22/18 01/23/18 06:59 06:59 06:59 Intake Total 20 765 Balance 20 765 Weight 68.4 kg 68.5 kg Exam: GENERAL: well-nourished and in no acute distress. Alert and oriented x3 HEAD: Atraumatic, normocephalic. EYES: Pupils equal round and reactive to light, extraocular movements intact, sclera anicteric, conjunctiva are normal. ENT: TMs normal, nares patent, oropharynx clear without exudates. Moist mucous membranes. No oral ulcerations or bleeding gums noted NECK: supple without lymphadenopathy. Trachea is central. No cervical or axillary lymphadenopathy noted. Carotids are 2+, JVD WNL LUNGS: Respiration seems nonlabored, no significant accessory muscle action noted. Breath sounds clear to auscultation bilaterally and equal noted. No wheezes rales or rhonchi noted. No significant dullness noted on percussion. CHEST: Palpation of the chest wall shows no significant chest wall tenderness. 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 ABDOMEN: Soft, no significant tenderness appreciated, normoactive bowel sounds. No guarding, no rebound. No rigidity noted . No masses appreciated. EXTREMITIES: Pedal pulses are 1-2+, no calf tenderness noted. No clubbing or cyanosis. negative pedal edema noted NEUROLOGICAL: Focused neurological exam showed no significant neurologic deficit. Normal speech, no focal weakness appreciated. PSYCH: Normal mood, normal affect. Judgment and insight within normal limits. SKIN: No significant ecchymosis, skin is noted to be warm. Mild erythematous eczematous rash noted both legs MUSCULOSKELETAL EXAM: No significant acute joint swelling noted. Results Laboratory Results: 01/22/18 06:01 TSH 5.09 H 01/21/18 01/22/18 06:04 06:01 Troponin I < 0.012 < 0.012 EKG Comments: Telemetry shows sinus rhythm without any sustained tachycardia or bradycardia. Impressions: Chest X-Ray 01/20/18 22:16 IMPRESSION: NO ACUTE RADIOGRAPHIC FINDING IN THE CHEST. Chest/Abdomen CTA 01/20/18 23:35 IMPRESSION: 1. No evidence of pulmonary embolus. 2. Small hiatal hernia. This exam was performed according to our departmental dose-optimization program, which includes automated exposure control, adjustment of the mA and/or kV according to patient size and/or use of iterative reconstruction technique. Abdomen/Pelvis CT 01/21/18 02:11 IMPRESSION: 1. No acute inflammatory or obstructive process identified. 2. The ventricular system without evidence of acute diverticulitis. 3. Small hiatal hernia. This exam was performed according to our departmental dose-optimization program, which includes automated exposure control, adjustment of the mA and/or kV according to patient size and/or use of iterative reconstruction technique. Assessment & Plan - Diagnosis (1) Chest pain Qualifiers: Chest pain type: unspecified Qualified Code(s): R07.9 - Chest pain, unspecified Is this a current diagnosis for this admission?: Yes (2) Hyperlipidemia Qualifiers: Hyperlipidemia type: other hyperlipidemia Qualified Code(s): E78.4 - Other hyperlipidemia Is this a current diagnosis for this admission?: Yes (3) Hypertension Qualifiers: Hypertension type: essential hypertension Qualified Code(s): I10 - Essential (primary) hypertension Is this a current diagnosis for this admission?: Yes (4) Tobacco abuse Is this a current diagnosis for this admission?: Yes - Notes Notes: Patient claims chest pain is improved. This was evaluated with a nuclear stress test. Nuclear stress test was negative for any significant areas of ischemia or any significant areas of scar. The nuclear stress test is felt to be relatively low risk. Patient informed that occasionally single-vessel disease and balanced ischemia could be missed. Patient advised aggressive risk factor modification and medical therapy. Patient informed that further evaluation may become necessary if symptoms worsens or there is a development of new symptoms indicative of angina or angina equivalent symptom. 2D echo results were reviewed with the patient. Patient questions were answered. Blood pressure goal in this patient is 140/90 or less. This was discussed with the patient. Currently blood pressure under reasonable control. Better medication for this patient are DARREL inhibitor/ARB/beta kevin etc. discussed side effects of uncontrolled hypertension and also severe hypotension. Hyperlipidemia: LDL goal is less than 70. Recommend statin therapy at least intermediate or high dose, of high potency status. Periodic lipid panel and liver panel is indicated. Patient to report any significant muscle discomfort or other side effects. Tobacco abuse: Patient has history of chronic smoking. Discussed detrimental effect of chronic smoking including worsening COPD, increased risk of cardiovascular events, cerebrovascular events, cancer and multiple other side effects of smoking. The benefits of smoking cessation discussed. Patient unwilling to give acommitment to quit. - Time Time with patient: Greater than 35 minutes - CODE STATUS was discussed, patient remains full code. Surrogate decision-maker unchanged. Multiple medical problems were addressed. More than 50% of the time spent coordinating care, discussing management plans with involved caregivers. Management plans discussed with involved personnels. Medical decision making was of moderate to high complexity, patient's has multiple comorbidities. Medications reviewed and adjusted accordingly: Yes
[2018-01-22] MEDS ORDERED: FLUTICASONE/SALMETEROL DISKUS 100-50 MCG/DOSE IH SCH ×2 (18:00→22:00)
== END 2018-01-22 15:45 | disposition home or self-care (01) ==
LOC: ER 21:50 → EH 01-21 02:30 → INTOOBSV 01-21 02:30 → 5 01-21 03:55
PROVIDERS: ADMIT Internal Medicine; ATTEND Internal Medicine
DX: R07.89 Other chest pain (principal); E78.4 Other hyperlipidemia; I10 Essential (primary) hypertension; R06.02 Shortness of breath; F17.210 Nicotine dependence, cigarettes, uncomplicated; F32.9 Major depressive disorder, single episode, unspecified; E11.9 Type 2 diabetes mellitus without complications; L30.9 Dermatitis, unspecified; R53.1 Weakness; R00.0 Tachycardia, unspecified; Z87.01 Personal history of pneumonia (recurrent); Z79.899 Other long term (current) drug therapy; M19.90 Unspecified osteoarthritis, unspecified site
CPT/HCPCS: 93005; 99285; 36415 ×3; 82550; 84443 ×3; 85025; 80053; 84484 ×3; 80061; 93306; 93017; 71045; 78452; 71275; 74176; 93010; 94060; A9500; J2785; A9270 ×14; J3490 ×4; J1650 ×2; J0280; Q9969; S0119

== ENCOUNTER 2018-07-11 17:21 | Emergency (ER) | payer MEDICARE ==
[2018-07-11] MEDS ORDERED: NORMAL SALINE 1000 ML 1,000 ML IV ONE (18:34)
[2018-07-11] MEDS ORDERED: ONDANSETRON HCL INJ/PF 4 MG/2 ML SDV IV ONE (18:35)
--- NOTE | 2018-07-11 18:44 | ER Document Report ---
ED Medical Screen (RME) - General Chief Complaint: Nausea/Vomiting Stated Complaint: NAUSEA,VOMITING Time Seen by Provider: 07/11/18 18:23 Notes: Patient is a 62-year-old female that presents to the emergency department for chief complaint of nausea, vomiting or abdominal pain. Patient states that she has been having nausea and vomiting for 2 days, not able to keep anything down. She feels that she is gotten dehydrated, denies urinary, denies diarrhea, has not had a bowel movement over this period of time ROS: Unless otherwise stated in this report the patient's positive and negative responses for review of systems for constitutional, eyes, ENT, cardiovascular, respiratory, gastrointestinal, neurological, genitourinary, musculoskeletal, and integumentary systems and related systems to the presenting problem are either as stated in the HPI or were not pertinent or were negative for the symptoms and/or complaints related to the presenting medical problem. PHYSICAL EXAMINATION: Vital signs reviewed. GENERAL: Well-appearing, well-nourished and in no acute distress. HEAD: Atraumatic, normocephalic. EYES: Pupils equal round extraocular movements intact, conjunctiva are normal. ENT: Nares patent NECK: Normal range of motion CV: Heart regular rate and rhythm LUNGS: No respiratory distress Abdomen: Soft, tenderness to palpation, there is a palpable midline supra umbilical ventral hernia, that was rather tender to palpate over that area Musculoskeletal: Normal range of motion NEUROLOGICAL: Normal speech PSYCH: Normal mood, normal affect. MDM: Patient seen and examined for rapid initial assessment. Vital signs reviewed. A comprehensive ED assessment and evaluation of the patient, analysis of test results and completion of the medical decision making process will be conducted by additional ED providers. *Note is created using voice recognition software and may contain spelling, syntax or grammatical errors. TRAVEL OUTSIDE OF THE [place] IN LAST 30 DAYS: No - Related Data Allergies/Adverse Reactions: atropine [Atropine] Allergy (Intermediate, Verified 07/11/18 18:22) Abnormal behavior sumatriptan [From Imitrex] Allergy (Verified 07/11/18 18:22) sumatriptan succinate [From Imitrex] Allergy (Verified 07/11/18 18:22) Past Medical History - Social History Frequency of alcohol use: None Drug Abuse: None - Past Medical History Cardiac Medical History: Reports: Hx Hypertension, Hx Heart Murmur Denies: Hx Congestive Heart Failure, Hx Coronary Artery Disease, Hx Heart Attack Pulmonary Medical History: Denies: Hx Asthma, Hx Bronchitis, Hx COPD, Hx Pneumonia Neurological Medical History: Denies: Hx Cerebrovascular Accident, Hx Seizures Endocrine Medical History: Reports: Hx Diabetes Mellitus Type 2 Renal/ Medical History: Denies: Hx Peritoneal Dialysis GI Medical History: Musculoskeltal Medical History: Reports Hx Arthritis - generalized Psychiatric Medical History: Denies: Hx Depression Infectious Medical History: Past Surgical History: Reports: Hx Cardiac Catheterization, Hx Hysterectomy. Denies: Hx Pacemaker - Immunizations Hx Diphtheria, Pertussis, Tetanus Vaccination: Yes History of Influenza Vaccine for 06/2017 - 11/2017 Season: No Physical Exam - Vital signs Vitals: Temp Pulse Resp BP Pulse Ox 99.6 F 94 14 183/108 H 99 07/11/18 17:26 07/11/18 17:26 07/11/18 17:26 07/11/18 17:26 07/11/18 17:26 Course - Vital Signs Vital signs: Temp Pulse Resp BP Pulse Ox 99.6 F 94 14 183/108 H 99 07/11/18 17:26 07/11/18 17:26 07/11/18 17:26 07/11/18 17:26 07/11/18 17:26 Doctor's Discharge - Discharge Referrals: RUSS ORTIZ PA-C [Primary Care Provider] - Follow up as needed
--- NOTE | 2018-07-11 19:32 | RADIOLOGY REPORT (SQ) ---
EXAM DESCRIPTION: KUB/ABDOMEN (SINGLE VIEW) COMPLETED DATE/TIME: 07/11/2018 7:10 pm REASON FOR STUDY: abdominal pain, vomiting, ventral hernia COMPARISON: None. NUMBER OF VIEWS: One view. TECHNIQUE: Supine radiographic image of the abdomen acquired. LIMITATIONS: None. FINDINGS: BOWEL GAS PATTERN: Nonobstructive gas pattern. There is large amount of stool in the colo n. CALCIFICATIONS: No suspicious calcifications. SOFT TISSUES: No gross mass or suggestion of organomegaly. HARDWARE: None in the abdomen. BONES: No acute fracture. No worrisome bone lesions. OTHER: No other significant finding. IMPRESSION: Constipation. TECHNICAL DOCUMENTATION: JOB ID: [id number] [employer]- All Rights Reserved Reading location - IP/workstation name: [email or web address]
[2018-07-11 19:56] LABS: ABSOLUTE LYMPHOCYTES (AUTO) 2.2 10^3/uL (0.5-4.7); ABSOLUTE MONOCYTES (AUTO) 0.3 10^3/uL (0.1-1.4); ABSOLUTE NEUT (AUTO) 6.2 10^3/uL (1.7-8.2); BASOPHILS % (AUTO) 0.5 % (0-2); HEMATOCRIT 40.8 % (36.0-47.0); HEMOGLOBIN 14.1 g/dL (12.0-15.5); LYMPHOCYTES % (AUTO) 25.1 % (13-45); MEAN CORPUSCULAR HEMOGLOBIN 30.9 pg (27.0-33.4); MEAN CORPUSCULAR HGB CONC 34.4 g/dL (32.0-36.0); MEAN CORPUSCULAR VOLUME 90 fl (80-97); MONOCYTES % (AUTO) 3.5 % (3-13); PLATELET COUNT 329 10^3/uL (150-450); RED BLOOD COUNT 4.55 10^6/uL (3.72-5.28); RED CELL DISTRIBUTION WIDTH 14.9 % (11.5-14.0); SEGMENTED NEUTROPHILS % (AUTO) 70.9 % (42-78); TOTAL CELLS COUNTED % (AUTO) 100 %; WHITE BLOOD COUNT 8.7 10^3/uL (4.0-10.5)
[2018-07-11 20:15] LABS: ALANINE AMINOTRANSFERASE 14 U/L (9-52); ALBUMIN 4.5 g/dL (3.5-5.0); ALKALINE PHOSPHATASE 75 U/L (38-126); ANION GAP 11 (5-19); ASPARTATE AMINO TRANSFERASE 40 U/L (14-36); BILIRUBIN,DIRECT 0.3 mg/dL (0.0-0.4); BILIRUBIN,TOTAL 0.5 mg/dL (0.2-1.3); BLOOD UREA NITROGEN 14 mg/dL (7-20); CALCIUM 9.6 mg/dL (8.4-10.2); CARBON DIOXIDE 26 mmol/L (22-30); CHLORIDE 105 mmol/L (98-107); GLUCOSE 107 mg/dL (75-110); LIPASE 35.8 U/L (23-300); POTASSIUM 3.6 mmol/L (3.6-5.0); SODIUM 141.9 mmol/L (137-145); TOTAL PROTEIN 8.3 g/dL (6.3-8.2)
--- NOTE | 2018-07-11 23:22 | EKG REPORT ---
SEVERITY:- ABNORMAL ECG - SINUS RHYTHM FIRST DEGREE AV BLOCK : Confirmed by: Farhad Craig 11-Jul-2018 23:21:24
[2018-07-12] MEDS ORDERED: METOCLOPRAMIDE HCL INJ/PF 10 MG/2 ML SDV IV ONE (01:02)
[2018-07-12] MEDS ORDERED: NORMAL SALINE 1000 ML 1,000 ML IV ONE (01:03)
--- NOTE | 2018-07-12 02:28 | ER Document Report ---
ED General - General Chief Complaint: Nausea/Vomiting Stated Complaint: NAUSEA,VOMITING Time Seen by Provider: 07/11/18 18:23 TRAVEL OUTSIDE OF THE [place] IN LAST 30 DAYS: No - HPI Patient complains to provider of: Nausea vomiting Onset: Other - 62-year-old female presents for evaluation of nausea and vomiting in the setting of chronic abdominal pain as well as chronic back pain and occasional nausea in the past which she generally treats at home with Zofran , over the last 2 days she has been using Zofran with only moderate improvement in her symptoms. She notes that she is generally wet regular but has had a couple of episodes of constipation in the past. She denies any fevers, chills, dysuria, lightheadedness, dizziness or diaphoresis. She has not taken anything else to try and help with this. - Related Data Allergies/Adverse Reactions: atropine [Atropine] Allergy (Intermediate, Verified 07/11/18 18:22) Abnormal behavior sumatriptan [From Imitrex] Allergy (Verified 07/11/18 18:22) sumatriptan succinate [From Imitrex] Allergy (Verified 07/11/18 18:22) Past Medical History - General Information source: Patient - Social History Smoking Status: Current Every Day Smoker Frequency of alcohol use: None Drug Abuse: None Family History: Reviewed & Not Pertinent Patient has suicidal ideation: No Patient has homicidal ideation: No - Past Medical History Cardiac Medical History: Reports: Hx Hypertension, Hx Heart Murmur Denies: Hx Congestive Heart Failure, Hx Coronary Artery Disease, Hx Heart Attack Pulmonary Medical History: Denies: Hx Asthma, Hx Bronchitis, Hx COPD, Hx Pneumonia Neurological Medical History: Denies: Hx Cerebrovascular Accident, Hx Seizures Endocrine Medical History: Reports: Hx Diabetes Mellitus Type 2 Renal/ Medical History: Denies: Hx Peritoneal Dialysis GI Medical History: Musculoskeletal Medical History: Reports Hx Arthritis - generalized Psychiatric Medical History: Denies: Hx Depression Infectious Medical History: Past Surgical History: Reports: Hx Cardiac Catheterization, Hx Hysterectomy. Denies: Hx Pacemaker - Immunizations Hx Diphtheria, Pertussis, Tetanus Vaccination: Yes Review of Systems - Review of Systems -: Yes All other systems reviewed and negative Physical Exam - Vital signs Vitals: Temp Pulse Resp BP Pulse Ox 99.6 F 94 14 183/108 H 99 07/11/18 17:26 07/11/18 17:26 07/11/18 17:26 07/11/18 17:26 07/11/18 17:26 - General General appearance: Appears well In distress: None - HEENT Head: Normocephalic Eyes: Normal Conjunctiva: Normal Cornea: Normal Extraocular movements intact: Yes Eyelashes: Normal Pupils: PERRL - Respiratory Respiratory status: No respiratory distress Chest status: Nontender Breath sounds: Normal Chest palpation: Normal - Cardiovascular Rhythm: Regular Heart sounds: Normal auscultation Murmur: No - Abdominal Inspection: Obese Distension: No distension Tenderness: Tender - Diffusely tender with no rebound or guarding - Back Back: Normal - Extremities General upper extremity: Normal inspection, Nontender, Normal strength, Normal temperature General lower extremity: Normal inspection, Nontender, Normal strength, Normal temperature - Neurological Neuro grossly intact: Yes Cognition: Normal Orientation: AAOx4 [place] Coma Scale Eye Opening: Spontaneous [place] Coma Scale Verbal: Oriented Cinthia Coma Scale Motor: Obeys Commands [place] Coma Scale Total: 15 Speech: Normal Cranial nerves: Normal Motor strength normal: LUE, RUE, LLE, RLE - Psychological Associated symptoms: Normal affect Course - Re-evaluation Re-evalutation: 07/12/18 03:56 This 62-year-old female on methadone has constipation nausea and some vomiting. Through triage she had labs drawn as well as an x-ray taken of her abdomen which demonstrates a remarkable stool burden. On exam she is a nonfocal abdominal examination with no rebound or guarding. Her labs are relatively benign, her urinalysis is normal. Administered antiemetics for this patient and she was able to tolerate p.o. in the emergency department. I discussed with this patient the importance of an aggressive bowel regimen related to her large stool burden likely as a result of her narcotic use chronically. She does take methadone 4 times daily for back pain. We will plan for this patient undergo treatment with Reglan, will plan for the use of magnesium citrate as an aggressive laxative and will give her return precautions related to the use of thereof. She was discharged with return precautions after being able to tolerate p.o. with a benign abdominal examination. She did receive fluids as well as antiemetics in the emergency department with a modest improvement. - Vital Signs Vital signs: Temp Pulse Resp BP Pulse Ox 99.4 F 82 12 187/81 H 98 07/12/18 03:15 07/12/18 03:15 07/12/18 03:15 07/12/18 03:15 07/12/18 03:15 - Laboratory Result Diagrams: 07/11/18 19:36 07/11/18 19:36 Laboratory results interpreted by me: 07/11/18 07/11/18 19:36 19:36 RDW 14.9 H AST 40 H Total Protein 8.3 H Discharge - Discharge Clinical Impression: Nausea & vomiting Qualifiers: Vomiting type: unspecified Vomiting Intractability: non-intractable Qualified Code(s): R11.2 - Nausea with vomiting, unspecified Abdominal pain Qualifiers: Abdominal location: unspecified location Qualified Code(s): R10.9 - Unspecified abdominal pain Condition: Good Disposition: HOME, SELF-CARE Instructions: Abdominal Pain ([facility]), Reglan ([facility]), Viral Syndrome ([facility]) Additional Instructions: You were seen today in the emergency department for your nausea and vomiting. Use the medication prescribed to you as needed for nausea. Use the medicine magnesium citrate in 2 days if you have not had a normal bowel movement by then. Use MiraLAX twice a day until then to help loosen your stools. Return for worsening fevers or chills, inability to eat or drink or other symptoms. Otherwise call your physician tomorrow to see you this week for your ongoing problems. Prescriptions: Magnesium Citrate [Citrate of Magnesia 296 ml Bottle] 296 ml PO DAILY #1 bottle Metoclopramide HCl 10 mg PO BID PRN #20 tablet PRN Reason: Forms: Elevated Blood Pressure Referrals: RUSS ORTIZ PA-C [Primary Care Provider] - Follow up as needed
[2018-07-12 03:17] VITALS: BP 187/81
== END 2018-07-12 04:30 | disposition home or self-care (01) ==
LOC: ER 17:21
DX: R11.2 Nausea with vomiting, unspecified (principal); G89.29 Other chronic pain; R10.9 Unspecified abdominal pain; F17.200 Nicotine dependence, unspecified, uncomplicated; I10 Essential (primary) hypertension; E11.9 Type 2 diabetes mellitus without complications; Z90.710 Acquired absence of both cervix and uterus
CPT/HCPCS: 93005; 99284; 96361; 96374; 96375; 36415; 83605; 83690; 85025; 80053; 84484; 74018; 93010; J2765; J2405; J7030

== ENCOUNTER 2018-08-01 22:18 | Inpatient (IN) | payer MEDICARE ==
[2018-08-01] MEDS ORDERED: NALOXONE HCL INJ/PF 0.4 MG/1 ML SDV IV ONE (22:47)
[2018-08-01] MEDS ORDERED: ONDANSETRON HCL INJ/PF 4 MG/2 ML SDV IV ONE (22:48)
--- NOTE | 2018-08-01 22:54 | ER Document Report ---
ED General - General Stated Complaint: WEAKNESS Time Seen by Provider: 08/01/18 22:36 Notes: Patient presents with somnolence. Blood sugar is a bit low for the paramedics 57. They gave her oral glucose. Blood sugar is now 128 but she still very somnolent. Nurse noticed and they were checking around her heart would go down as low as 39. Most times it is in the mid 40s to mid 50s. Blood pressure is currently normal with his heart rate. Despite normal blood pressures she is still very somnolent. Patient is able to be awaken mine does answer questions appropriately. She does take methadone but says there is been no change in her dosages and this usually does not make her sleepy. She denies being on any sleeping medication except for occasional amitriptyline which she has not had several days. Denies any fevers. She denies any pain. She denies headache. Denies any chest pain or shortness of breath. No abdominal pain. She denies any focal weakness or numbness. She does have history of COPD and does continue to smoke. She does not wear oxygen at home. She denies any history of liver issues. She denies any recent infections. No other complaints at this time. TRAVEL OUTSIDE OF THE [place] IN LAST 30 DAYS: No - Related Data Allergies/Adverse Reactions: atropine [Atropine] Allergy (Intermediate, Verified 07/11/18 18:22) Abnormal behavior sumatriptan [From Imitrex] Allergy (Verified 07/11/18 18:22) sumatriptan succinate [From Imitrex] Allergy (Verified 07/11/18 18:22) Past Medical History - Social History Smoking Status: Current Every Day Smoker Frequency of alcohol use: None Drug Abuse: None Family History: Reviewed & Not Pertinent - Past Medical History Cardiac Medical History: Reports: Hx Hypertension, Hx Heart Murmur Denies: Hx Congestive Heart Failure, Hx Coronary Artery Disease, Hx Heart Attack Pulmonary Medical History: Denies: Hx Asthma, Hx Bronchitis, Hx COPD, Hx Pneumonia Neurological Medical History: Denies: Hx Cerebrovascular Accident, Hx Seizures Endocrine Medical History: Reports: Hx Diabetes Mellitus Type 2 Renal/ Medical History: Denies: Hx Peritoneal Dialysis GI Medical History: Musculoskeletal Medical History: Reports Hx Arthritis - generalized Psychiatric Medical History: Denies: Hx Depression Infectious Medical History: Past Surgical History: Reports: Hx Cardiac Catheterization, Hx Hysterectomy. Denies: Hx Pacemaker - Immunizations Hx Diphtheria, Pertussis, Tetanus Vaccination: Yes Review of Systems - Review of Systems Notes: My Normal Review Basic REVIEW OF SYSTEMS: CONSTITUTIONAL : Denies fever, chills, or sweats. Denies recent illness. EENT: Denies eye, ear, throat, or mouth pain or symptoms. Denies nasal or sinus congestion. CARDIOVASCULAR: Denies chest pain. RESPIRATORY: Denies cough, cold, or chest congestion. Denies shortness of breath, difficulty breathing, or wheezing. GASTROINTESTINAL: Denies abdominal pain. Denies nausea, vomiting, or diarrhea. MUSCULOSKELETAL: Denies neck or back pain or joint pain or swelling. SKIN: Denies rash or skin lesions. NEUROLOGICAL: Weakness. Somnolence. ALL OTHER SYSTEMS REVIEWED AND NEGATIVE. Physical Exam - Vital signs Vitals: Resp Pulse Ox 14 100 08/01/18 22:40 08/01/18 22:40 - Notes Notes: General Appearance: Well nourished, patient is lying in bed with eyes closed. When he yelled her name she will wake up and answer a few questions and go right back to sleep. Vitals: reviewed, See vital signs table. Head: no swelling or tenderness to the head Eyes: PERRL, EOMI, Conjuctiva clear Mouth: No decreasd moisture Throat: No tonsillar inflammation, No airway obstruction, No lymphadenopathy Neck: Supple, no neck tenderness, No thyromegaly Lungs: No wheezing, No rales, No rhonci, No accessory muscle use, good air exchange bilaterally. Heart: Normal rate, Regular rythm, No murmur, no rub Abdomen: Normal BS, soft, No rigidity, No abdominal tenderness, No guarding, no rebound, no abdominal masses, no organomegaly Extremities: strength 5/5 in all extremities, good pulses in all extremities, no swelling or tenderness in the extremities, no edema. Skin: warm, dry, appropriate color, no rash Neuro: She is slightly slurred. When she is awake and she will answer questions appropriately. She does move all 4 extremities on her own. There is no facial droop. Cranial nerves II through XII are intact. Distal sensation intact. No focal neurologic deficits on exam. Course - Re-evaluation Re-evalutation: 08/01/18 22:53 I do not think her somnolence is related to hypoglycemia being that her blood sugar now is normal and she is still somnolent. Some is could be related to hypercapnia. Avoid venous blood gas. I went and ordered BiPAP. We will wait to place her on the BiPAP and until she has a CT scan of her head and she received a small dose of Narcan. The Narcan makes no difference in her somnolence and will place her on the BiPAP. If the Narcan makes her nauseous 0 weeks are up then we will hold off on the BiPAP. Patient currently is not nauseous. Patient kept on monitor and monitor closely because of some bradycardia. 08/02/18 01:33 She initially responded to the Narcan. She placed on BiPAP for hypercapnic. Patient became somnolent again I just gave Narcan again to wake up as I cannot wake her up with sternal rub. I suspect the patient's is probably taken too much of her methadone causing her to be somnolent and have shallow respirations leading to respiratory acidosis and hypercapnia. I will placed on Narcan drip. We will keep her on BiPAP. I will call the hospitalist for admission. 08/02/18 01:[address] Campos who agrees to admit the patient. - Vital Signs Vital signs: Temp Pulse Resp BP Pulse Ox 12 113/57 L 97 08/02/18 01:00 08/02/18 00:59 08/02/18 01:00 - Laboratory Result Diagrams: 08/01/18 22:45 08/01/18 22:45 Laboratory results interpreted by me: 08/01/18 08/01/18 08/01/18 22:41 22:45 22:45 RBC 3.68 L Hgb 11.1 L Hct 33.7 L RDW 14.9 H VBG pH VBG pCO2 Chloride 109 H POC Glucose 128 H AST 72 H Ammonia 08/01/18 08/01/18 22:45 22:45 RBC Hgb Hct RDW VBG pH 7.17 L* VBG pCO2 78.9 H* Chloride POC Glucose AST Ammonia < 8.7 L - EKG Interpretation by Me Additional EKG results interpreted by me: 08/01/18 22:50 EKG is reviewed and interpreted by me. EKG shows sinus bradycardia with rate of [address] segment elevation or depression. No ischemic T wave inversions. MS interval is slightly prolonged. QRS duration and QT intervals are within normal range. No old EKG available for comparison. Discharge - Discharge Clinical Impression: Respiratory acidosis Opiate overdose Qualifiers: Encounter type: initial encounter Injury intent: accidental or unintentional Qualified Code(s): T40.601A - Poisoning by unspecified narcotics, accidental ( unintentional), initial encounter Condition: Stable Disposition: ADMITTED INPATIENT Admitting Provider: Hospitalist Unit Admitted: ICU Referrals: RUSS ORTIZ PA-C [Primary Care Provider] - Follow up as needed
[2018-08-01 23:06] LABS: ABSOLUTE BASOPHILS # (AUTO) 0.1 10^3/uL (0.0-0.2); ABSOLUTE EOSINOPHILS # (AUTO) 0.3 10^3/uL (0.0-0.6); ABSOLUTE LYMPHOCYTES (AUTO) 1.7 10^3/uL (0.5-4.7); ABSOLUTE MONOCYTES (AUTO) 0.7 10^3/uL (0.1-1.4); ABSOLUTE NEUT (AUTO) 5.6 10^3/uL (1.7-8.2); BASOPHILS % (AUTO) 1.2 % (0-2); EOSINOPHILS % (AUTO) 3.9 % (0-6); HEMATOCRIT 33.7 % (36.0-47.0); HEMOGLOBIN 11.1 g/dL (12.0-15.5); LYMPHOCYTES % (AUTO) 20.4 % (13-45); MEAN CORPUSCULAR HEMOGLOBIN 30.3 pg (27.0-33.4); MEAN CORPUSCULAR HGB CONC 33.1 g/dL (32.0-36.0); MEAN CORPUSCULAR VOLUME 92 fl (80-97); MONOCYTES % (AUTO) 8.4 % (3-13); PLATELET COUNT 247 10^3/uL (150-450); RED BLOOD COUNT 3.68 10^6/uL (3.72-5.28); RED CELL DISTRIBUTION WIDTH 14.9 % (11.5-14.0); SEGMENTED NEUTROPHILS % (AUTO) 66.1 % (42-78); TOTAL CELLS COUNTED % (AUTO) 100 %; WHITE BLOOD COUNT 8.5 10^3/uL (4.0-10.5)
[2018-08-01 23:15] LABS: VENOUS BLOOD BASE EXCESS -2.9 mmol/L; VENOUS BLOOD HCO3 27.9 mmol/L (20-32)
--- NOTE | 2018-08-01 23:15 | RADIOLOGY REPORT (SQ) ---
EXAM DESCRIPTION: XR CHEST 1 VIEW COMPLETED DATE/TME: 08/01/2018 22:48 CLINICAL HISTORY: 62 years, Female, altered mental status COMPARISON: None. NUMBER OF VIEWS: 1 TECHNIQUE: AP portable chest LIMITATIONS: None. FINDINGS: Cardiomegaly. Ectasia of the thoracic aorta. Osteopenia. Lungs are clear. No pneumothorax. Elevation right hemidiaphragm. IMPRESSION: Cardiomegaly. Lungs are clear 2010 [facility] [employer]- All Rights Reserved
--- NOTE | 2018-08-01 23:16 | RADIOLOGY REPORT (SQ) ---
EXAM DESCRIPTION: CT HEAD WITHOUT IV CONTRAST COMPLETED DATE/TME: 08/01/2018 22:46 CLINICAL HISTORY: 62 years, Female, altered mental status COMPARISON: None. TECHNIQUE: 192 Images stored on PACS. All CT scanners at this facility use dose modulation, iterative reconstruction, and/or weight based dosing when appropriate to reduce radiation dose to as low as reasonably achievable (ALARA). [facility]: Dose Right [facility]: CareDose [facility]: Dose Right [facility]: Teradose 4D [facility]: [email or web address] LIMITATIONS: None. FINDINGS: The globes are intact. The paranasal sinuses and mastoid air cells are unremarkable. No displaced or depressed skull fracture. No intra or extra-axial hemorrhage. CT limited for evaluation of acute infarct. No CT evidence for large or territorial acute infarct. No mass or midline shift. IMPRESSION: Unremarkable unenhanced CT brain TECHNICAL DOCUMENTATION: Quality ID # [id number]: Final reports with documentation of one or more dose reduction techniques (e.g., Automated exposure control, adjustment of the mA and/or kV according to patient size, use of iterative reconstruction technique) 2010 [employer]- All Rights Reserved
[2018-08-01 23:18] LABS: VENOUS BLOOD PCO2 78.9 mmHg (35-63); VENOUS BLOOD PH 7.17 (7.30-7.42)
[2018-08-01 23:30] LABS: ALANINE AMINOTRANSFERASE 29 U/L (9-52); ALBUMIN 3.6 g/dL (3.5-5.0); ALKALINE PHOSPHATASE 49 U/L (38-126); ANION GAP 10 (5-19); ASPARTATE AMINO TRANSFERASE 72 U/L (14-36); BILIRUBIN,DIRECT 0.3 mg/dL (0.0-0.4); BILIRUBIN,TOTAL 0.3 mg/dL (0.2-1.3); BLOOD UREA NITROGEN 14 mg/dL (7-20); CALCIUM 8.9 mg/dL (8.4-10.2); CARBON DIOXIDE 26 mmol/L (22-30); CHLORIDE 109 mmol/L (98-107); GLUCOSE 101 mg/dL (75-110); POTASSIUM 4.1 mmol/L (3.6-5.0); SODIUM 144.7 mmol/L (137-145); TOTAL PROTEIN 6.5 g/dL (6.3-8.2)
[2018-08-02] MEDS ORDERED: NALOXONE HCL INJ/PF 0.4 MG/1 ML SDV IV ONE (01:24)
[2018-08-02] MEDS: NORMAL SALINE 500 ML with NALOXONE HCL 2 MG IV PRN ×8 (01:58→09:03)
[2018-08-02] MEDS ORDERED: MAG HYDROX/AL HYDROX/SIMETH SUSP 30 ML UDCUP PO PRN (02:09)
[2018-08-02] MEDS ORDERED: DEXTROSE 40% GEL 15 GM TUBE PO PRN ×2 (02:09)
[2018-08-02] MEDS ORDERED: DEXTROSE 50%-WATER 25 GM/50 ML DISP.SYRIN IV PRN ×2 (02:09)
[2018-08-02] MEDS ORDERED: IPRATROPIUM/ALBUTEROL 0.5-2.5 MG/3 ML AMPUL NEB PRN (02:09)
[2018-08-02] MEDS ORDERED: GLUCAGON,HUMAN RECOMB 1 MG INJ IM PRN (02:09)
[2018-08-02] MEDS ORDERED: ACETAMINOPHEN 325 MG TABLET PO PRN (02:09)
[2018-08-02] MEDS ORDERED: NORMAL SALINE 1000 ML 1,000 ML IV PRN (02:15)
[2018-08-02 02:25] LABS: APPEARANCE,URINE SLIGHTLY-CLOUDY; BILIRUBIN,URINE NEGATIVE (NEGATIVE); COLOR,URINE YELLOW; GLUCOSE, URINE NEGATIVE (NEGATIVE); KETONES,URINE NEGATIVE (NEGATIVE); LEUKOCYTE ESTERASE,URINE NEGATIVE (NEGATIVE); NITRITE,URINE NEGATIVE (NEGATIVE); PROTEIN,URINE NEGATIVE (NEGATIVE); URINE SPECIFIC GRAVITY 1.027
[2018-08-02 02:37] LABS: URINE AMPHETAMINES SCREEN NEGATIVE; URINE BARBITURATES SCREEN NEGATIVE; URINE BENZODIAZEPINES SCREEN NEGATIVE; URINE COCAINE SCREEN NEGATIVE; URINE MARIJUANA (THC) SCREEN NEGATIVE; URINE METHADONE SCREEN UNCONFIRMED POSITIVE; URINE PHENCYCLIDINE SCREEN NEGATIVE
--- NOTE | 2018-08-02 04:12 | PDOC H&P ---
History of Present Illness Admission Date/PCP: 08/02/18 02:21 RUSS ORTIZ PA-C Patient complains of: Weakness History of Present Illness: ALEJANDRO DALEY is a 62 year old female with a past medical history of COPD, tobacco, depression and chronic pain on methadone. In the emergency room she is found to be sedated, unable to answer questions, blood gas reveals hypercapnic respiratory failure, she started on IV Narcan for recurrent bouts of somnolence and hypoventilation. Patient is unable to provide history. Review of the record has multiple previous similar presentations. Past Medical History Cardiac Medical History: Reports: Hypertension, Heart Murmur Denies: Congestive Heart Failure, Coronary Artery Disease, Myocardial Infarction Pulmonary Medical History: Denies: Asthma, Bronchitis, Chronic Obstructive Pulmonary Disease (COPD), Pneumonia Neurological Medical History: Denies: Seizures Endocrine Medical History: Reports: Diabetes Mellitus Type 2 GI Medical History: Musculoskeltal Medical History: Reports: Arthritis - generalized Psychiatric Medical History: Denies: Depression Hematology: Denies: Anemia Past Surgical History Past Surgical History: Reports: Cardiac Catheterization, Hysterectomy Denies: Pacemaker Social History Information Source: Emergency Med Personnel, [facility] Records Smoking Status: Current Every Day Smoker Frequency of Alcohol Use: None Hx Recreational Drug Use: No Drugs: Methadone Family History Family History: Hypertension Parental Family History Reviewed: No - Unobtainable Children Family History Reviewed: No - Unobtainable Sibling(s) Family History Reviewed.: No - Unobtainable Medication/Allergy Home Medications: Gabapentin [Neurontin 300 mg Capsule] 300 mg PO Q8 MDD LAST FILLED 11/01/1712/04 Methadone HCl 10 mg PO Q6 03/22/17 Metoprolol Tartrate [Lopressor 50 mg Tablet] 25 mg NG Q12 #60 tablet 03/27/17 Hydrocodone Bit/Acetaminophen [Hydrocodon-Acetaminophen 5-325] 1 tab PO DAILYP PRN MDD WITH WOUND CARE DRESSING BAUM 01/21/18 Lisinopril [Prinivil 10 mg Tablet] 10 mg PO DAILY 01/21/18 Albuterol Sulfate [Proair HFA] 1 - 2 puff IH Q4 PRN #1 inhaler 01/22/18 Atorvastatin Calcium [Lipitor 40 mg Tablet] 40 mg PO QHS #30 tablet 01/22/18 Fluticasone/Salmeterol [Advair 100-50 Diskus 14 Dose/Diskus] 1 inh IH DAILY #1 inhaler 01/22/18 Magnesium Citrate [Citrate of Magnesia 296 ml Bottle] 296 ml PO DAILY #1 bottle 07/12/18 Metoclopramide HCl 10 mg PO BID PRN #20 tablet 07/12/18 Allergies/Adverse Reactions: atropine [Atropine] Allergy (Intermediate, Verified 07/11/18 18:22) Abnormal behavior sumatriptan [From Imitrex] Allergy (Verified 07/11/18 18:22) sumatriptan succinate [From Imitrex] Allergy (Verified 07/11/18 18:22) Review of Systems ROS unobtainable: Due to mental status Physical Exam Vital Signs: Temp Pulse Resp BP Pulse Ox 27 H 149/74 H 99 08/02/18 04:00 08/02/18 03:00 08/02/18 03:01 General appearance: PRESENT: disheveled, mild distress, obese, other - Yawning, tearing, somnolent Head exam: PRESENT: atraumatic, normocephalic Eye exam: PRESENT: conjunctival injection, conjunctiva pink, EOMI, periorbital swelling, PERRLA Ear exam: PRESENT: normal external ear exam Mouth exam: PRESENT: moist, tongue midline Neck exam: ABSENT: carotid bruit, JVD, lymphadenopathy, thyromegaly Respiratory exam: PRESENT: decreased breath sounds, symmetrical. ABSENT: accessory muscle use, rhonchi, stridor Cardiovascular exam: PRESENT: RRR. ABSENT: diastolic murmur, rubs, systolic murmur Pulses: PRESENT: normal dorsalis pedis pul Vascular exam: PRESENT: normal capillary refill GI/Abdominal exam: PRESENT: normal bowel sounds, soft. ABSENT: distended, guarding, mass, organolmegaly, rebound, tenderness Rectal exam: PRESENT: deferred Extremities exam: PRESENT: full ROM. ABSENT: calf tenderness, clubbing, pedal edema Neurological exam: PRESENT: altered, CN II-XII grossly intact. ABSENT: alert, awake, oriented to person, oriented to place Psychiatric exam: PRESENT: unusual affect - Profoundly sedated Skin exam: PRESENT: dry, intact, warm. ABSENT: cyanosis, rash Results Impressions: Head CT 08/01/18 22:46 IMPRESSION: Unremarkable unenhanced CT brain TECHNICAL DOCUMENTATION: Quality ID # [id number]: Final reports with documentation of one or more dose reduction techniques (e.g., Automated exposure control, adjustment of the mA and/or kV according to patient size, use of iterative reconstruction technique) 2010 [employer]- All Rights Reserved Chest X-Ray 08/01/18 22:48 IMPRESSION: Cardiomegaly. Lungs are clear 2010 [employer]- All Rights Reserved Assessment & Plan - Diagnosis (1) Opiate overdose Qualifiers: Encounter type: initial encounter Injury intent: accidental or unintentional Qualified Code(s): T40.601A - Poisoning by unspecified narcotics , accidental (unintentional), initial encounter Is this a current diagnosis for this admission?: Yes Plan: ICU admission for IV Narcan, BiPAP support, follow-up ABG, mental health consult (2) Respiratory acidosis Is this a current diagnosis for this admission?: Yes Plan: IV Narcan, BiPAP support, supplemental oxygen as needed (3) Diabetes Qualifiers: Diabetes mellitus type: type 2 Is this a current diagnosis for this admission?: Yes Plan: Outpatient regiment with Humalog sliding scale - Time Time Spent: 50 to 70 Minutes - Inpatient Certification Medical Necessity: Need Close Monitoring Due to Risk of Patient Decompensation
[2018-08-02 04:27] LABS: ARTERIAL BLOOD BASE EXCESS -1.5 mmol/L; ARTERIAL BLOOD FIO2 30%; ARTERIAL BLOOD H2CO3 1.24 mmol/L (1.05-1.35); ARTERIAL BLOOD HCO3 23.6 mmol/L (20-24); ARTERIAL BLOOD PCO2 41.1 mmHg (35-45); ARTERIAL BLOOD PH 7.38 (7.35-7.45); ARTERIAL BLOOD PO2 112.6 mmHg (80-100); ARTERIAL BLOOD TOTAL CO2 24.9 mmol/L (21-25)
[2018-08-02 05:10] LABS: ABSOLUTE BASOPHILS # (AUTO) 0.1 10^3/uL (0.0-0.2); ABSOLUTE EOSINOPHILS # (AUTO) 0.1 10^3/uL (0.0-0.6); ABSOLUTE LYMPHOCYTES (AUTO) 1.1 10^3/uL (0.5-4.7); ABSOLUTE MONOCYTES (AUTO) 0.3 10^3/uL (0.1-1.4); ABSOLUTE NEUT (AUTO) 4.8 10^3/uL (1.7-8.2); BASOPHILS % (AUTO) 1.1 % (0-2); EOSINOPHILS % (AUTO) 2.3 % (0-6); HEMATOCRIT 35.3 % (36.0-47.0); LYMPHOCYTES % (AUTO) 17.6 % (13-45); MEAN CORPUSCULAR HEMOGLOBIN 30.5 pg (27.0-33.4); MEAN CORPUSCULAR HGB CONC 33.9 g/dL (32.0-36.0); MEAN CORPUSCULAR VOLUME 90 fl (80-97); MONOCYTES % (AUTO) 5.3 % (3-13); PLATELET COUNT 232 10^3/uL (150-450); RED BLOOD COUNT 3.92 10^6/uL (3.72-5.28); SEGMENTED NEUTROPHILS % (AUTO) 73.7 % (42-78); TOTAL CELLS COUNTED % (AUTO) 100 %; WHITE BLOOD COUNT 6.5 10^3/uL (4.0-10.5)
[2018-08-02] MEDS ORDERED: NALOXONE HCL INJ 2 MG/2 ML DISP.SYRIN ONE ×2 (05:41→06:50)
[2018-08-02 05:52] LABS: ANION GAP 10 (5-19); BLOOD UREA NITROGEN 10 mg/dL (7-20); CALCIUM 8.7 mg/dL (8.4-10.2); CARBON DIOXIDE 23 mmol/L (22-30); CHLORIDE 113 mmol/L (98-107); GLUCOSE 83 mg/dL (75-110); POTASSIUM 3.8 mmol/L (3.6-5.0); SODIUM 146.4 mmol/L (137-145)
[2018-08-02 06:09] LABS: CREATINE KINASE MB 8.05 ng/mL (<4.55)
[2018-08-02 06:25] LABS: TROPONIN I < 0.012 ng/mL
[2018-08-02] MEDS: HEPARIN SOD (PORCINE) 5,000 UNIT/ML 1 ML SYRINGE SUBCUT SCH ×3 (06:39→22:09)
[2018-08-02] MEDS ORDERED: IPRATROPIUM/ALBUTEROL 0.5-2.5 MG/3 ML AMPUL NEB SCH (08:00)
--- NOTE | 2018-08-02 09:59 | EKG REPORT ---
SEVERITY:- BORDERLINE ECG - SINUS BRADYCARDIA PROBABLE LEFT ATRIAL ABNORMALITY BORDERLINE LEFT AXIS DEVIATION : Confirmed by: Farhad Craig 02-Aug-2018 09:59:17
--- NOTE | 2018-08-02 10:00 | EKG REPORT ---
SEVERITY:- BORDERLINE ECG - SINUS BRADYCARDIA BORDERLINE T ABNORMALITIES, INFERIOR LEADS : Confirmed by: Farhad Craig 02-Aug-2018 09:59:30
[2018-08-02] MEDS ORDERED: ALBUTEROL SULFATE HFA (90 MCG/PUFF) 8 GM MDI (1 MDI/ER DISP) IH PRN (10:57)
[2018-08-02] MEDS ORDERED: METOCLOPRAMIDE HCL 10 MG TABLET PO PRN (10:57)
--- NOTE | 2018-08-02 10:57 | PDOC PROGRESS REPORT ---
Subjective Progress Note for:: 08/02/18 Subjective:: CASSY DALEY is a 62 year old female with a past medical history of COPD, tobacco, depression and chronic pain on methadone. In the emergency room she was obtunded and unable to provide meaningful medical information. Laboratory evaluation revealed a venous blood gas showing hypercapnic respiratory failure with respiratory acidosis. She was started on IV Narcan and BiPAP in the emergency room and transferred to the ICU to the care of the hospitalist service. 08/02/2018: Cassy is awake and alert this morning. She complains of moderate to severe, aching tightness, without radiation in her back and legs that is consistent with her chronic pain. She is tolerating gradual weaning off the Narcan drip and she no longer requires BiPAP in fact has an O2 sat of 96% on room air. Her diet will be increased today and will use a Chew catheter for measurement of her output until such time as she is able to get up use the bathroom and/or a bedside commode. Activities will be increased as tolerated and consumption of oral fluids will be encouraged. A nicotine patch will be provided on an as needed basis. Labs will be rechecked in the morning and I would anticipate discharge 08/03 or . Reason For Visit: HYPERCAPNIC RESP FAILURE OPIATE OD Physical Exam Vital Signs: Temp Pulse Resp BP Pulse Ox 98.3 F 58 L 22 H 155/66 H 98 08/02/18 09:00 08/02/18 09:00 08/02/18 10:00 08/02/18 09:37 08/02/18 10:00 Intake & Output 07/31/18 08/01/18 08/02/18 23:59 23:59 23:59 Intake Total 1648 Balance 1648 Weight 81.4 kg General appearance: PRESENT: cooperative, mild distress - Due to back and leg pain Head exam: PRESENT: atraumatic, normocephalic Eye exam: PRESENT: conjunctiva pink. ABSENT: nystagmus, scleral icterus Ear exam: PRESENT: normal external ear exam. ABSENT: drainage Mouth exam: PRESENT: neck supple, tongue midline Neck exam: ABSENT: thyromegaly, tracheal deviation Respiratory exam: PRESENT: clear to auscultation kristine, symmetrical, unlabored Cardiovascular exam: PRESENT: RRR. ABSENT: clicks, diastolic murmur, gallop, rubs, systolic murmur Vascular exam: PRESENT: normal capillary refill. ABSENT: pallor GI/Abdominal exam: PRESENT: normal bowel sounds, soft Rectal exam: PRESENT: deferred Extremities exam: ABSENT: joint swelling, pedal edema Musculoskeletal exam: PRESENT: full ROM, normal inspection Neurological exam: PRESENT: alert, awake, oriented to person, oriented to place , oriented to time, CN II-XII grossly intact. ABSENT: motor sensory deficit Psychiatric exam: PRESENT: depressed, flat affect Skin exam: ABSENT: jaundice, rash, urticaria Results Laboratory Results: 08/02/18 04:56 08/02/18 04:56 08/02/18 08/02/18 08/02/18 03:55 04:56 04:56 WBC 6.5 RBC 3.92 Hgb 12.0 Hct 35.3 L MCV 90 MCH 30.5 MCHC 33.9 RDW 15.0 H Plt Count 232 Seg Neutrophils % 73.7 Lymphocytes % 17.6 Monocytes % 5.3 Eosinophils % 2.3 Basophils % 1.1 Absolute Neutrophils 4.8 Absolute Lymphocytes 1.1 Absolute Monocytes 0.3 Absolute Eosinophils 0.1 Absolute Basophils 0.1 Carbonic Acid 1.24 HCO3/H2CO3 Ratio 19:1 ABG pH 7.38 ABG pCO2 41.1 ABG pO2 112.6 H ABG HCO3 23.6 ABG O2 Saturation 98.0 ABG Base Excess -1.5 FiO2 30% Sodium 146.4 H Potassium 3.8 Chloride 113 H Carbon Dioxide 23 Anion Gap 10 BUN 10 Creatinine 0.53 Est GFR ( Amer) > 60 Est GFR (Non-Af Amer) > 60 Glucose 83 Calcium 8.7 08/02/18 08/02/18 04:56 04:56 Creatine Kinase 1276 H CK-MB (CK-2) 8.05 H Troponin I < 0.012 Impressions: Head CT 08/01/18 22:46 IMPRESSION: Unremarkable unenhanced CT brain TECHNICAL DOCUMENTATION: Quality ID # 436: Final reports with documentation of one or more dose reduction techniques (e.g., Automated exposure control, adjustment of the mA and/or kV according to patient size, use of iterative reconstruction technique) 2010 [employer]- All Rights Reserved Chest X-Ray 08/01/18 22:48 IMPRESSION: Cardiomegaly. Lungs are clear 2010 [employer]- All Rights Reserved Assessment & Plan - Diagnosis (1) Opiate overdose Qualifiers: Encounter type: initial encounter Injury intent: accidental or unintentional Qualified Code(s): T40.601A - Poisoning by unspecified narcotics , accidental (unintentional), initial encounter Is this a current diagnosis for this admission?: Yes Plan: A Narcan continuous infusion was initiated in the emergency room and has been continued throughout her ICU course with gradual reduction in dosage. The Narcan will be titrated to discontinuation per protocol. (2) Respiratory failure Qualifiers: Chronicity: acute Respiratory failure complication: hypercapnia Qualified Code(s): J96.02 - Acute respiratory failure with hypercapnia Is this a current diagnosis for this admission?: Yes Plan: Cassy developed acute respiratory failure secondary to her narcotic overdose. Her acute respiratory failure was accompanied by an acute respiratory acidosis and both processes are resolving as her artificially depressed mental and respiratory status are improving with the Narcan IV infusion and the reduction in the patient's serum methadone levels due to vigorous hydration and excretion. Her respiratory status will be monitored throughout the remainder of her hospital course but at this time she is breathing satisfactorily with no need for respiratory assistance or supplemental oxygen. (3) Encephalopathy Is this a current diagnosis for this admission?: Yes Plan: Jhonny encephalopathy was primarily a reversible metabolic encephalopathy due to her narcotic overdose and her respiratory failure. Her encephalopathy is currently improving with improvement in her respiratory status and a reversal of her respiratory acidosis as well as decreasing narcotic effect. Her status will be monitored throughout the remainder of her hospital course. Patient is currently mentally clear for purposes of a psychiatric evaluation. (4) Hypertension Qualifiers: Hypertension type: essential hypertension Qualified Code(s): I10 - Essential (primary) hypertension Is this a current diagnosis for this admission?: Yes Plan: Cassy has a history of hypertension and is currently taking metoprolol and lisinopril as her home meds. These will be resumed since she is now able to take oral medications. (5) Chronic pain Qualifiers: Chronic pain type: chronic pain syndrome Qualified Code(s): G89.4 - Chronic pain syndrome Is this a current diagnosis for this admission?: Yes Plan: Joanne has chronic pain for which she was taking methadone. She has overdosed several times on narcotic at home evidently with intent to commit suicide but only because she is taking increased dosages to try to deal with her pain. Nonnarcotic methods (NSAIDS, venlafaxine or escitalopram and Cymbalta will be initiated during this hospital course with no plan for continued narcotics on discharge unless the patient can be managed by an appropriate pain management clinic. - Time Time Spent with patient: Less than 15 minutes Medications reviewed and adjusted accordingly: Yes Anticipated discharge: Other - Pending psychiatric recommendations for disposition. Within: within 48 hours
[2018-08-02] MEDS: NORMAL SALINE 1000 ML 1,000 ML IV PRN ×2 (11:00→23:37)
[2018-08-02] MEDS ORDERED: ONDANSETRON 4 MG TAB.RAPDIS PO PRN (11:03)
[2018-08-02] MEDS: KETOROLAC TROMETHAMINE INJ/PF 30 MG/1 ML SDV IV SCH ×2 (11:12→17:48)
[2018-08-02 11:46] LABS: CREATINE KINASE MB 7.87 ng/mL (<4.55)
[2018-08-02 11:52] LABS: TROPONIN I < 0.012 ng/mL
[2018-08-02] MEDS: LISINOPRIL 10 MG TABLET PO SCH (12:26)
[2018-08-02] MEDS: DULOXETINE HCL 30 MG CAPSULE.DR PO SCH (12:26)
[2018-08-02] MEDS: METOPROLOL SUCCINATE 50 MG TAB.SR.24H PO SCH (12:27)
[2018-08-02] MEDS: ESCITALOPRAM OXALATE 10 MG TABLET PO SCH (12:27)
[2018-08-02] MEDS ORDERED: ALBUTEROL SULFATE HFA (90 MCG/PUFF) 200 PUFF/8.5 GM MDI IH PRN (13:23)
--- NOTE | 2018-08-02 14:42 | PSYCHOLOGICAL NOTE ---
Psych Note - Psych Note Date seen by psych provider: 08/02/18 Time seen by psych provider: 13:25 Psych Note: Reason for Consult: overdose ALEJANDRO DALEY is a 62 year old female with a past medical history of COPD, tobacco, depression and chronic pain on methadone. Patient disclosed that she arrived to [facility] via rescue squad. She states that she came because "they said I would not wake up." She reports that this has happened to her before. She adamantly denies overtaking any medication or taking any medication or substances not prescribed; "I take my medication just like my doctor tells me." Patient states that she takes methadone for pain and is prescribed by her provider Courtney Frias. She does not have an outpatient mental health provider. Patient is alert and orientated to person, place, time and circumstance. Patient was awakened for evaluation. Overall mood was euthymic with congruent affect. patient denies suicidal and homicidal ideation. Delusions are absent behaviors congruent with an intact reality based presentation i.e. organized and linear thought process. Eye contact is poor as patient frequently close her eyes. Intellectual abilities appear to be within the average range. Attention and concentration are fair. Insight, judgment, impulse control are fair. no medication recommendations at this time. 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 Impression\\plan: Patient is cleared from acute psychiatric services. Patient does not meet IVC criteria per [place] GS 122C. Patient denies suicidal and homicidal ideation. Appears the patient has dependency on her pain medications and accidentally overdosed. Patient is not demonstrating any behaviors indicating she is responding to internal stimuli. Patient is recommended to follow-up with neurology due to her 03/25/[address] Mcelroy was consulted on the care and management of this patient.
[2018-08-02 17:07] LABS: CREATINE KINASE MB 5.15 ng/mL (<4.55)
[2018-08-02 17:12] LABS: TROPONIN I < 0.012 ng/mL
[2018-08-02] MEDS ORDERED: ATORVASTATIN CALCIUM 40 MG TABLET PO SCH (22:00)
[2018-08-03] MEDS: KETOROLAC TROMETHAMINE INJ/PF 30 MG/1 ML SDV IV SCH ×3 (00:26→11:19)
[2018-08-03 06:33] LABS: ABSOLUTE EOSINOPHILS # (AUTO) 0.1 10^3/uL (0.0-0.6); ABSOLUTE LYMPHOCYTES (AUTO) 1.9 10^3/uL (0.5-4.7); ABSOLUTE MONOCYTES (AUTO) 0.5 10^3/uL (0.1-1.4); BASOPHILS % (AUTO) 0.6 % (0-2); EOSINOPHILS % (AUTO) 1.3 % (0-6); HEMATOCRIT 30.9 % (36.0-47.0); HEMOGLOBIN 10.6 g/dL (12.0-15.5); LYMPHOCYTES % (AUTO) 33.9 % (13-45); MEAN CORPUSCULAR HEMOGLOBIN 30.7 pg (27.0-33.4); MEAN CORPUSCULAR HGB CONC 34.2 g/dL (32.0-36.0); MEAN CORPUSCULAR VOLUME 90 fl (80-97); MONOCYTES % (AUTO) 9.4 % (3-13); PLATELET COUNT 187 10^3/uL (150-450); RED BLOOD COUNT 3.44 10^6/uL (3.72-5.28); SEGMENTED NEUTROPHILS % (AUTO) 54.8 % (42-78); TOTAL CELLS COUNTED % (AUTO) 100 %; WHITE BLOOD COUNT 5.6 10^3/uL (4.0-10.5)
[2018-08-03 06:39] LABS: ANION GAP 7 (5-19); BLOOD UREA NITROGEN 13 mg/dL (7-20); CARBON DIOXIDE 24 mmol/L (22-30); CHLORIDE 112 mmol/L (98-107); GLUCOSE 72 mg/dL (75-110); SODIUM 142.9 mmol/L (137-145)
[2018-08-03] MEDS: HEPARIN SOD (PORCINE) 5,000 UNIT/ML 1 ML SYRINGE SUBCUT SCH ×2 (06:53→14:57)
[2018-08-03] MEDS ORDERED: POTASSIUM CHLORIDE 20 MEQ/50 ML RTU IV ONE (07:00)
[2018-08-03] MEDS ORDERED: FLUTICASONE/SALMETEROL DISKUS 100-50 MCG/DOSE IH SCH (10:00)
[2018-08-03] MEDS: METOPROLOL SUCCINATE 50 MG TAB.SR.24H PO SCH (11:07)
[2018-08-03] MEDS: DULOXETINE HCL 30 MG CAPSULE.DR PO SCH (11:19)
[2018-08-03] MEDS: LISINOPRIL 10 MG TABLET PO SCH (11:19)
[2018-08-03] MEDS: ESCITALOPRAM OXALATE 10 MG TABLET PO SCH (11:20)
--- NOTE | 2018-08-03 15:51 | PDOC DISCHARGE SUMMARY ---
General - Admit/Disc Date/PCP Admission Date/Primary Care Provider: 08/02/18 02:21 RUSS ORTIZ PA-C Discharge Date: 08/03/18 - Discharge Diagnosis (1) Opiate overdose Is this a current diagnosis for this admission?: Yes Summary: A Narcan continuous infusion was initiated in the emergency room and has been continued throughout her ICU course with gradual reduction in dosage. The Narcan will be titrated to discontinuation per protocol. 08/03/2018: Patient's Narcan infusion was discontinued on 08/02/2018. Patient has remained stable since that time and her narcotic overdose has resolved. (2) Respiratory failure Is this a current diagnosis for this admission?: Yes Summary: Alejandro developed acute respiratory failure secondary to her narcotic overdose. Her acute respiratory failure was accompanied by an acute respiratory acidosis and both processes are resolving as her artificially depressed mental and respiratory status are improving with the Narcan IV infusion and the reduction in the patient's serum methadone levels due to vigorous hydration and excretion. Her respiratory status will be monitored throughout the remainder of her hospital course but at this time she is breathing satisfactorily with no need for respiratory assistance or supplemental oxygen. 04/02/2018: Alejandro has been doing well on room air for the entirety of this day. She has been active in her room and has required no supplemental oxygen and has not shown any evidence of dyspnea clinically or hypoxia on her continuous O2 sat monitor. Her acute respiratory failure has resolved. (3) Encephalopathy Is this a current diagnosis for this admission?: Yes Summary: Alejandro's encephalopathy was primarily a reversible metabolic encephalopathy due to her narcotic overdose and her respiratory failure. Her encephalopathy is currently improving with improvement in her respiratory status and a reversal of her respiratory acidosis as well as decreasing narcotic effect. Her status will be monitored throughout the remainder of her hospital course. Patient is currently mentally clear for purposes of a psychiatric evaluation. (4) Hypertension Is this a current diagnosis for this admission?: Yes Summary: Alejandro has a history of hypertension and is currently taking metoprolol and lisinopril as her home meds. These will be resumed since she is now able to take oral medications. (5) Chronic pain Is this a current diagnosis for this admission?: Yes Summary: Alejandro has chronic pain for which she was taking methadone. She has overdosed several times on narcotic at home evidently with intent to commit suicide but only because she is taking increased dosages to try to deal with her pain. Nonnarcotic methods (NSAIDS, venlafaxine or escitalopram and Cymbalta will be initiated during this hospital course with no plan for continued narcotics on discharge unless the patient can be managed by an appropriate pain management clinic. - Additional Information Home Medications: Gabapentin [Neurontin 300 mg Capsule] 300 mg PO Q8 03/22/17 Methadone HCl 10 mg PO Q6 03/22/17 Lisinopril [Prinivil 10 mg Tablet] 10 mg PO DAILY MDD filled 04/14/18 for 30daysupply 01/21/18 Metoclopramide HCl 10 mg PO BID PRN #20 tablet 07/12/18 Amitriptyline HCl [Elavil 10 Mg Tablet] 10 mg PO QHS 08/02/18 Metoprolol Tartrate [Lopressor 25 mg Tablet] 25 mg PO Q12 MDD filled 04/14/18 for 30daysupply 08/02/18 History of Present Illness Patient complains of: Acute methadone overdose History of Present Illness: ALEJANDRO DALEY is a 62 year old female with a past medical history of COPD, tobacco, depression and chronic pain on methadone. In the emergency room she was obtunded and unable to provide meaningful medical information. Laboratory evaluation revealed a venous blood gas showing hypercapnic respiratory failure with respiratory acidosis. She was started on IV Narcan and BiPAP in the emergency room and transferred to the ICU to the care of the hospitalist service. Hospital Course Hospital Course: 08/02/2018: Alejandro is awake and alert this morning. She complains of moderate to severe, aching tightness, without radiation in her back and legs that is consistent with her chronic pain. She is tolerating gradual weaning off the Narcan drip and she no longer requires BiPAP in fact has an O2 sat of 96% on room air. Her diet will be increased today and will use a Chew catheter for measurement of her output until such time as she is able to get up use the bathroom and/or a bedside commode. Activities will be increased as tolerated and consumption of oral fluids will be encouraged. A nicotine patch will be provided on an as needed basis. Labs will be rechecked in the morning and I would anticipate discharge 08/03 or . 08/03/2018: Patient is remained very stable since her evaluation yesterday. She is no longer requiring any supplemental oxygen for any activity and has been up in her room. She is strongly desirous of being discharged home and this will be accomplished today as she has been cleared by psychiatry. Patient will therefore be discharged home in improved and stable condition. Physical Exam Vital Signs: Temp Pulse Resp BP Pulse Ox 99.0 F 58 L 14 145/71 H 97 08/03/18 11:26 08/03/18 07:00 08/03/18 14:00 08/03/18 13:37 08/03/18 14:00 Intake & Output 08/01/18 08/02/18 08/03/18 23:59 23:59 23:59 Intake Total 2983 118 Output Total 1500 230 Balance 1483 -112 Weight 81.4 kg 84.4 kg General appearance: PRESENT: no acute distress, cooperative Head exam: PRESENT: atraumatic, normocephalic Eye exam: PRESENT: conjunctiva pink, EOMI Ear exam: PRESENT: normal external ear exam Mouth exam: PRESENT: neck supple Respiratory exam: PRESENT: clear to auscultation kristine, symmetrical, unlabored Cardiovascular exam: PRESENT: RRR Vascular exam: PRESENT: normal capillary refill GI/Abdominal exam: PRESENT: normal bowel sounds, soft Rectal exam: PRESENT: deferred Musculoskeletal exam: PRESENT: full ROM, normal inspection Neurological exam: PRESENT: alert, oriented to person, oriented to place, oriented to time, oriented to situation, CN II-XII grossly intact Psychiatric exam: PRESENT: appropriate affect, normal mood Skin exam: PRESENT: dry, intact, warm Results Laboratory Results: 08/03/18 04:15 08/03/18 04:15 08/02/18 08/02/18 08/03/18 22:43 22:43 04:15 WBC 5.6 RBC 3.44 L Hgb 10.6 L Hct 30.9 L MCV 90 MCH 30.7 MCHC 34.2 RDW 15.0 H Plt Count 187 Seg Neutrophils % 54.8 Lymphocytes % 33.9 Monocytes % 9.4 Eosinophils % 1.3 Basophils % 0.6 Absolute Neutrophils 3.0 Absolute Lymphocytes 1.9 Absolute Monocytes 0.5 Absolute Eosinophils 0.1 Absolute Basophils 0.0 Sodium Potassium Chloride Carbon Dioxide Anion Gap BUN 11 Creatinine 0.59 Est GFR ( Amer) > 60 Est GFR (Non-Af Amer) > 60 Glucose Calcium 08/03/18 04:15 WBC RBC Hgb Hct MCV MCH MCHC RDW Plt Count Seg Neutrophils % Lymphocytes % Monocytes % Eosinophils % Basophils % Absolute Neutrophils Absolute Lymphocytes Absolute Monocytes Absolute Eosinophils Absolute Basophils Sodium 142.9 Potassium 3.0 L* Chloride 112 H Carbon Dioxide 24 Anion Gap 7 BUN 13 Creatinine 0.63 Est GFR ( Amer) > 60 Est GFR (Non-Af Amer) > 60 Glucose 72 L Calcium 8.0 L 08/02/18 08/02/18 08/02/18 04:56 04:56 10:45 Creatine Kinase 1276 H 849 H CK-MB (CK-2) 8.05 H Troponin I < 0.012 08/02/18 08/02/18 08/02/18 10:45 16:25 16:25 Creatine Kinase 737 H CK-MB (CK-2) 7.87 H 5.15 H Troponin I < 0.012 < 0.012 Impressions: Head CT 08/01/18 22:46 IMPRESSION: Unremarkable unenhanced CT brain TECHNICAL DOCUMENTATION: Quality ID # [id number]: Final reports with documentation of one or more dose reduction techniques (e.g., Automated exposure control, adjustment of the mA and/or kV according to patient size, use of iterative reconstruction technique) 2010 [employer]- All Rights Reserved Chest X-Ray 08/01/18 22:48 IMPRESSION: Cardiomegaly. Lungs are clear 2010 [employer]- All Rights Reserved Qualifiers - * PATIENT BEING DISCHARGED WITH ANY OF THE FOLLOWING DIAGNOSIS: No
[2018-08-03 16:30] VITALS: BP 134/67
== END 2018-08-03 17:22 | disposition home or self-care (01) | DRG 917 ==
LOC: ER 22:18 → EH 08-02 02:21 → ICU 08-02 04:30
PROVIDERS: ADMIT Internal Medicine; ATTEND Internal Medicine
PROC: 5A09457 Assistance with Respiratory Ventilation, 24-96 Consecutive Hours, Continuous Positive Airway Pressure (ICD-10-PCS; principal; 2018-08-01)
PROC: 3E0F7GC Introduction of Other Therapeutic Substance into Respiratory Tract, Via Natural or Artificial Opening (ICD-10-PCS; 2018-08-02)
PROC: 3E02340 Introduction of Influenza Vaccine into Muscle, Percutaneous Approach (ICD-10-PCS; 2018-08-03)
DX: T40.3X1A Poisoning by methadone, accidental (unintentional), initial encounter (principal); J96.02 Acute respiratory failure with hypercapnia; G92 Toxic encephalopathy; F11.20 Opioid dependence, uncomplicated; I10 Essential (primary) hypertension; G89.4 Chronic pain syndrome; F32.9 Major depressive disorder, single episode, unspecified; M15.9 Polyosteoarthritis, unspecified; F17.210 Nicotine dependence, cigarettes, uncomplicated; E11.649 Type 2 diabetes mellitus with hypoglycemia without coma; J44.9 Chronic obstructive pulmonary disease, unspecified; R00.1 Bradycardia, unspecified; Y92.019 Unspecified place in single-family (private) house as the place of occurrence of the external cause; Z23 Encounter for immunization; Z90.710 Acquired absence of both cervix and uterus; Z79.899 Other long term (current) drug therapy; Z88.6 Allergy status to analgesic agent; Z88.8 Allergy status to other drugs, medicaments and biological substances; Z82.49 Family history of ischemic heart disease and other diseases of the circulatory system
CPT/HCPCS: 36415; 36600; 70450; 71045; 80048; 80053; 80307; 81001; 82140; 82550; 82553; 82565; 82803; 82962; 83880; 84484; 84520; 85025; 90471; 90686; 93005; 93010; 94640; 94660; 94799; 96374; 99285; G0008; J1644; J1885; J2310; J3480; J3490; J7030; J7040; J7620

== ENCOUNTER 2018-08-14 21:37 | Inpatient (IN) | payer MEDICARE ==
[2018-08-14] MEDS ORDERED: MIDAZOLAM 2 MG/2 ML INJ ONE ×2 (21:43→22:10)
[2018-08-14] MEDS ORDERED: MIDAZOLAM 2 MG/2 ML INJ IV ONE ×2 (21:45→22:09)
[2018-08-14] MEDS ORDERED: LEVETIRACETAM 1500 MG/NACL-ISO 1,500 MG/100 ML RTUPB IV ONE ×2 (21:46→23:15)
[2018-08-14] MEDS ORDERED: NORMAL SALINE 1000 ML 1,000 ML IV ONE (21:47)
--- NOTE | 2018-08-14 21:51 | ER Document Report ---
ED General - General Stated Complaint: ALTERED MENTAL STATUS Time Seen by Provider: 08/14/18 21:45 Cannot obtain history due to: Unstable vital signs, Altered mental status Notes: Patient is a 62-year-old female who presents by EMS with concerns of altered mental status. Patient had a generalized tonic-clonic seizure at the time of my initial evaluation. No additional history can be obtained. TRAVEL OUTSIDE OF THE [place] IN LAST 30 DAYS: No - Related Data Allergies/Adverse Reactions: atropine [Atropine] Allergy (Intermediate, Verified 07/11/18 18:22) Abnormal behavior sumatriptan [From Imitrex] Allergy (Verified 07/11/18 18:22) sumatriptan succinate [From Imitrex] Allergy (Verified 07/11/18 18:22) Past Medical History - General Information source: Emergency Med Personnel Cannot obtain history due to: Altered mental status - Social History Smoking Status: Unknown if Ever Smoked Drug Abuse: Prescription drugs Lives with: Family Family History: Hypertension - Past Medical History Cardiac Medical History: Reports: Hx Hypertension, Hx Heart Murmur Denies: Hx Congestive Heart Failure, Hx Coronary Artery Disease, Hx Heart Attack Pulmonary Medical History: Denies: Hx Asthma, Hx Bronchitis, Hx COPD, Hx Pneumonia Neurological Medical History: Denies: Hx Cerebrovascular Accident, Hx Seizures Endocrine Medical History: Reports: Hx Diabetes Mellitus Type 2 Renal/ Medical History: Denies: Hx Peritoneal Dialysis GI Medical History: Musculoskeletal Medical History: Reports Hx Arthritis - generalized Psychiatric Medical History: Reports: Hx Depression Infectious Medical History: Past Surgical History: Reports: Hx Cardiac Catheterization, Hx Hysterectomy. Denies: Hx Pacemaker - Immunizations Hx Diphtheria, Pertussis, Tetanus Vaccination: Yes Review of Systems - Review of Systems -: Yes ROS unobtainable due to patient's medical condition Physical Exam - Vital signs Vitals: Resp Pulse Ox 25 H 100 08/14/18 21:43 08/14/18 21:43 Interpretation: Hypertensive, Tachycardic Notes: PHYSICAL EXAMINATION: GENERAL: Ill in appearance, confused, postictal HEAD: Atraumatic, normocephalic. EYES: Pupils dilated to 6 mm bilaterally, equal and reactive. Extraocular motions appear intact ENT: nares patent, oropharynx clear without exudates. Dry mucous membranes. There is bruising around the left eye NECK: supple without lymphadenopathy LUNGS: Breath sounds clear to auscultation bilaterally and equal. No wheezes rales or rhonchi. HEART: Regular tachycardia without murmurs ABDOMEN: Soft, nontender, normoactive bowel sounds. No guarding, no rebound. No masses appreciated. EXTREMITIES: Normal range of motion, no pitting or edema. No cyanosis. NEUROLOGICAL: Moves all extremity spontaneously but does not follow commands PSYCH: Lethargic, does not answer questions SKIN: Warm, Dry, normal turgor, no rashes or lesions noted. Course - Re-evaluation Re-evalutation: 08/14/18 21:48 Documentations delay does have been at the patient's bedside since she arrived by EMS. Patient arrived altered and acutely had a generalized tonic-clonic seizure here in the emergency department that spontaneously terminated after approximately 1 minute. Her pupils are noted to be profoundly dilated approximately 6 mm equal in bilateral. Reactive to light bilaterally. Patient does move all externa spontaneously post ictally. She is postictal at the time of my initial evaluation. EMS does report that she was found in a parking lot in [facility], family was unable to find contributory history. Family and patient deny drug use although the patient was just hospitalized for narcotic overdose requiring a naloxone infusion. She apparently has a history of opiate abuse in the past and may be acutely withdrawing from methadone although this would not typically present with seizures. It is possible the patient has additional coingestions on board that could have triggered a seizure today prickly given her dilated pupils. Alternative organic pathology is also on the differential including intercranial bleed, less likely acute CVA. Will obtain labs, CT of the head, chest x-ray, begin IV levetiracetam, IV midazolam has already been administered. Patient will also be continued on monitor and supplemental oxygen. Patient will be monitored and reassessed at regular intervals. 08/14/18 22:10 Patient is becoming increasingly agitated, thrashing in the bed. Increasing tachycardia associated with agitation. Versed 4mg IV will be given at this point. IV fluids ongoing. Awaiting labs and CT. 08/14/18 22:36 Patient continues to be quite restless, agitated,. Will transition to IV Valium , 10 mg that we can proceed with medical imaging including CT of the head and chest x-ray. 08/14/18 23:23 Patient continues to be somewhat restless although much more calm after receiving it in sterile benzodiazepines. She will go for CT of the head now that she is appropriately sedated to a point where we can adequately achieve this study. 08/14/18 23:40 CT the head is unremarkable. Will proceed with lumbar puncture given leukocytosis and abrupt onset of altered mental status with no obvious clear alternative etiology. 08/15/18 00:01 Lumbar puncture has been completed. CSF is clear. Labs pending. Will give an additional 5 mg of Valium given patient's ongoing mild agitation and hypertension. Suspect this is likely a toxidrome at this point based on otherwise reassuring evaluation. 08/15/18 01:00 Patient continues to be altered although her heart rate is much improved currently at 103. She does remain quite hypertensive at 196 on 114. CSF results are pending. Will begin gentle treatment of her hypertension as this likewise could account for her initial presentation of confusion although again it would be quite unlikely to cause a seizure. Will give 10 mg of labetalol IV. 08/15/18 01:42 Patient is still altered, does wake easily and can tell me her name but is otherwise disoriented. She does move all extremity spontaneously but does not follow specific commands such as giving thumbs up or wiggling of toes. Patient has had minimal response of her blood pressure to the 10 mg of labetalol dose that was given earlier. I discussed this case with Dr. Campos who has accepted the patient for admission to the ICU. - Vital Signs Vital signs: Temp Pulse Resp BP Pulse Ox 99.0 F 87 27 H 180/102 H 100 08/15/18 03:46 08/15/18 04:00 08/15/18 04:00 08/15/18 04:00 08/15/18 04:00 - Laboratory Result Diagrams: 08/14/18 22:00 08/15/18 03:34 Laboratory results interpreted by me: 08/14/18 08/14/18 08/14/18 22:00 22:00 22:35 WBC 20.3 H RDW 14.6 H Seg Neuts % (Manual) 81 H Abs Neuts (Manual) 16.4 H Carbon Dioxide 14 L Anion Gap 26 H Glucose 137 H Calcium 10.3 H Urine Protein >=500 H Urine Ketones 20 H Urine Blood MODERATE H CSF Glucose CSF Total Protein Acetaminophen < 10 L 08/15/18 00:00 WBC RDW Seg Neuts % (Manual) Abs Neuts (Manual) Carbon Dioxide Anion Gap Glucose Calcium Urine Protein Urine Ketones Urine Blood CSF Glucose 88 H CSF Total Protein 73 H Acetaminophen - Diagnostic Test Radiology reviewed: Image reviewed, Reports reviewed Radiology results interpreted by me: 08/15/18 01:43 CT head: No acute intracranial bleed or mass Chest x-ray: No acute infiltrate or pneumothorax Procedures - Lumbar Puncture Lumbar puncture Consent obtained: No - Emergent, altered mental status Lumbar puncture pre-procedure: Chloraprep applied Patient position: Lying Needle size: 22 Lumbar puncture location: L4-5 Anesthetic type: 1% Lidocaine mL's of anesthetic: 5 Amount/type of drainage: 6 cc clear Number of attempts: 1 Complications: No Critical Care Note - Critical Care Note Total time excluding time spent on procedures (mins): 87 Comments: Critical care time spent obtaining history from patient or surrogate, discussions with consultants, development of treatment plan with patient or surrogate, evaluation of patient's response to treatment, examination of patient , ordering and performing treatments and interventions, ordering and review of laboratory studies, re-evaluation of patient's condition, ordering and review of radiographic studies and review of old charts Discharge - Discharge Clinical Impression: Encephalopathy, Seizure, Agitation, Hypertensive urgency Condition: Critical Disposition: ADMITTED INPATIENT Admitting Provider: Hospitalist Unit Admitted: ICU
[2018-08-14 22:12] LABS: HEMATOCRIT 42.5 % (36.0-47.0); HEMOGLOBIN 14.2 g/dL (12.0-15.5); MEAN CORPUSCULAR HEMOGLOBIN 29.7 pg (27.0-33.4); MEAN CORPUSCULAR HGB CONC 33.3 g/dL (32.0-36.0); MEAN CORPUSCULAR VOLUME 89 fl (80-97); PLATELET COUNT 400 10^3/uL (150-450); RED BLOOD COUNT 4.77 10^6/uL (3.72-5.28); RED CELL DISTRIBUTION WIDTH 14.6 % (11.5-14.0); WHITE BLOOD COUNT 20.3 10^3/uL (4.0-10.5)
[2018-08-14 22:29] LABS: ABSOLUTE LYMPHOCYTES# (MANUAL) 2.6 10^3/uL (0.5-4.7); ABSOLUTE MONOCYTES # (MANUAL) 1.2 10^3/uL (0.1-1.4); ABSOLUTE NEUTROPHILS# (MANUAL) 16.4 10^3/uL (1.7-8.2); BASOPHILS % (MANUAL) 0 % (0-2); EOSINOPHILS % (MANUAL) 0 % (0-6); LYMPHOCYTES % (MANUAL) 13 % (13-45); MONOCYTES % (MANUAL) 6 % (3-13); SEGMENTED NEUTROPHILS % (MAN) 81 % (42-78); TOTAL CELLS COUNTED 100
[2018-08-14 22:30] LABS: PLATELET COMMENT INCREASED; RBC MORPHOLOGY COMMENT NORMO-CYTIC/CHROMIC
[2018-08-14 22:33] LABS: ALANINE AMINOTRANSFERASE 10 U/L (9-52); ALBUMIN 4.9 g/dL (3.5-5.0); ALKALINE PHOSPHATASE 72 U/L (38-126); ASPARTATE AMINO TRANSFERASE 28 U/L (14-36); BILIRUBIN,DIRECT 0.2 mg/dL (0.0-0.4); BILIRUBIN,TOTAL 0.4 mg/dL (0.2-1.3); BLOOD UREA NITROGEN 20 mg/dL (7-20); CALCIUM 10.3 mg/dL (8.4-10.2); GLUCOSE 137 mg/dL (75-110); POTASSIUM 3.9 mmol/L (3.6-5.0); SALICYLATE 9.2 mg/dL (2.0-20.0); TOTAL PROTEIN 8.1 g/dL (6.3-8.2)
[2018-08-14] MEDS ORDERED: DIAZEPAM INJ 10 MG/2 ML DISP.SYRIN IV ONE ×2 (22:36→23:23)
[2018-08-14] MEDS ORDERED: DIAZEPAM INJ 10 MG/2 ML DISP.SYRIN ONE ×2 (22:36→22:48)
[2018-08-14 22:37] LABS: CARBON DIOXIDE 14 mmol/L (22-30); CHLORIDE 105 mmol/L (98-107); SODIUM 144.7 mmol/L (137-145)
[2018-08-14 22:40] LABS: ACETAMINOPHEN < 10 ug/mL (10-30); ALCOHOL < 10 mg/dL (NONE DETECTED); ANION GAP 26 (5-19)
[2018-08-14 23:12] LABS: APPEARANCE,URINE SLIGHTLY-CLOUDY; BILIRUBIN,URINE NEGATIVE (NEGATIVE); COLOR,URINE YELLOW; GLUCOSE, URINE NEGATIVE (NEGATIVE); KETONES,URINE 20 mg/dL (NEGATIVE); LEUKOCYTE ESTERASE,URINE NEGATIVE (NEGATIVE); NITRITE,URINE NEGATIVE (NEGATIVE); PROTEIN,URINE >=500 mg/dL (NEGATIVE); URINE SPECIFIC GRAVITY 1.029; UROBILINOGEN,URINE NEGATIVE mg/dL (<2.0)
[2018-08-14] MEDS ORDERED: SODIUM CHLORIDE IV ONE (23:15)
[2018-08-14] MEDS ORDERED: [UNRECOGNIZED DRUG - OTHER] IV ONE (23:15)
[2018-08-14] MEDS ORDERED: LEVETIRACETAM IV ONE (23:15)
[2018-08-14 23:22] LABS: URINE AMPHETAMINES SCREEN NEGATIVE; URINE BARBITURATES SCREEN NEGATIVE; URINE BENZODIAZEPINES SCREEN NEGATIVE; URINE COCAINE SCREEN NEGATIVE; URINE MARIJUANA (THC) SCREEN NEGATIVE; URINE METHADONE SCREEN NEGATIVE; URINE PHENCYCLIDINE SCREEN NEGATIVE
[2018-08-14] MEDS ORDERED: LEVETIRACETAM RTU 1000 MG/NACL-ISO 100 ML IV ONE (23:30)
[2018-08-14] MEDS ORDERED: LIDOCAINE 1% INJ-PF (10 MG/ML) 30 ML SDV ONE (23:49)
[2018-08-15] MEDS ORDERED: NORMAL SALINE 1000 ML 1,000 ML IV ONE
--- NOTE | 2018-08-15 00:04 | RADIOLOGY REPORT (SQ) ---
CLINICAL HISTORY: ams, seizure COMPARISON: August 01, 2018. TECHNIQUE: CT HEAD WITHOUT IV CONTRAST on 08/14/2018 9:50 PM TECHNICAL SUPPORT ASSOCIATE This exam was performed according to our departmental dose-optimization program, which includes automated exposure control, adjustment of the mA and/or kV according to patient size and/or use of iterative reconstruction technique. FINDINGS: There is no acute hemorrhage, mass effect or midline shift. Henry-white differentiation is preserved. There is no hydrocephalus. There is no significant volume loss for age. The calvarium is intact. Orbits and globes are unremarkable. The paranasal sinuses are clear. Mastoid air cells are clear. IMPRESSION: No acute intracranial findings.
--- NOTE | 2018-08-15 00:28 | RADIOLOGY REPORT (SQ) ---
XR CHEST 1 VIEW HISTORY: Altered mental status. Seizure. COMPARISON: 08/01/2018 FINDINGS: Query mild cardiomegaly. No pulmonary vascular congestion is seen. Unchanged mild elevation of the right hemidiaphragm. The lungs are clear. No pleural effusion or pneumothorax is identified. Generalized osteopenia is present. No acute osseous findings. IMPRESSION: No acute cardiopulmonary abnormality.
[2018-08-15 00:54] LABS: GLUCOSE,CSF 88 mg/dL (40-70); PROTEIN,CSF 73 mg/dL (12-60)
[2018-08-15] MEDS ORDERED: RINGERS SOLUTION,LACTATED 1,000 ML IV ONE (00:59)
[2018-08-15] MEDS ORDERED: LABETALOL HCL INJ 20 MG/4 ML DISP.SYRIN IV ONE (01:01)
[2018-08-15 01:02] LABS: APPEARANCE ALL TUBES CLEAR; APPEARANCE TUBE 1 CLEAR; APPEARANCE TUBE 2 CLEAR; APPEARANCE TUBE 3 CLEAR; APPEARANCE TUBE 4 CLEAR; COLOR ALL TUBES COLORLESS; COLOR TUBE 1 COLORLESS; COLOR TUBE 2 COLORLESS; COLOR TUBE 3 COLORLESS; COLOR TUBE 4 COLORLESS; CSF TUBE NUMBER 3; RED BLOOD CELL,CSF 1 /uL (0-10)
[2018-08-15 01:03] LABS: WHITE BLOOD CELL,CSF 1 /uL (0-5)
[2018-08-15 01:25] LABS: APPEARANCE ALL TUBES CLEAR; APPEARANCE TUBE 1 CLEAR; APPEARANCE TUBE 2 CLEAR; APPEARANCE TUBE 3 CLEAR; APPEARANCE TUBE 4 CLEAR; COLOR ALL TUBES COLORLESS; COLOR TUBE 1 COLORLESS; COLOR TUBE 2 COLORLESS; COLOR TUBE 3 COLORLESS; COLOR TUBE 4 COLORLESS; CSF TUBE NUMBER 4; RED BLOOD CELL,CSF 0 /uL (0-10)
[2018-08-15 01:26] LABS: WHITE BLOOD CELL,CSF 0 /uL (0-5)
[2018-08-15] MEDS ORDERED: IPRATROPIUM/ALBUTEROL 0.5-2.5 MG/3 ML AMPUL NEB PRN (01:37)
[2018-08-15] MEDS ORDERED: LABETALOL HCL INJ 20 MG/4 ML DISP.SYRIN IV PRN (01:37)
[2018-08-15 02:24] LABS: TROPONIN I 0.019 ng/mL
--- NOTE | 2018-08-15 02:59 | PDOC H&P ---
History of Present Illness Admission Date/PCP: 08/15/18 01:57 RUSS ORTIZ PA-C Patient complains of: Altered mental status History of Present Illness: ALEJANDRO DALEY is a 62 year old female with a past medical history of COPD, depression, tobacco dependence, chronic pain on methadone with recurrent presentations for overdose with respiratory failure requiring ICU admission with Narcan. Patient presents after being found by family members with altered mental status and right periorbital edema at a [place] parking lot. EMS provide supportive care and in the emergency room has a generalized tonic- clonic seizure lasting approximately 1 minute and a persistent systolic blood pressure greater than 200. Pupils are found dilated at 6 mm and equal bilaterally, reactive to light. She is moving all 4 extremities but following commands intermittently. She receives IV labetalol, 6 of Versed and 15 of Valium IV and referred to the hospitalist for admission. Labs reveal leukocytosis and metabolic acidosis, patient has an unhelpful historian. Past Medical History Cardiac Medical History: Reports: Hypertension, Heart Murmur Denies: Congestive Heart Failure, Coronary Artery Disease, Myocardial Infarction Pulmonary Medical History: Denies: Asthma, Bronchitis, Chronic Obstructive Pulmonary Disease (COPD), Pneumonia Neurological Medical History: Denies: Seizures Endocrine Medical History: Reports: Diabetes Mellitus Type 2 GI Medical History: Musculoskeltal Medical History: Reports: Arthritis - generalized Psychiatric Medical History: Reports: Bipolar Disorder, Depression, Personality Disorder, Substance Abuse, Tobacco Dependency Hematology: Denies: Anemia Past Surgical History Past Surgical History: Reports: Cardiac Catheterization, Hysterectomy Denies: Pacemaker Social History Information Source: Emergency Med Personnel, [facility] Records Smoking Status: Unknown if Ever Smoked Frequency of Alcohol Use: None Hx Recreational Drug Use: No Drugs: Methadone - Advance Directive Resuscitation Status: Full Code Family History Family History: Hypertension Parental Family History Reviewed: Yes Children Family History Reviewed: Yes Sibling(s) Family History Reviewed.: Yes Medication/Allergy Home Medications: Lisinopril [Prinivil 10 mg Tablet] 10 mg PO DAILY MDD filled 04/14/18 for 30daysupply 01/21/18 Metoclopramide HCl 10 mg PO BID PRN #20 tablet 07/12/18 Albuterol Sulfate [Proair HFA Inhalation Aerosol 8.5 gm MDI] 2 puff IH Q4HP PRN 30 Days #1 hfa.aer.ad 08/03/18 Atorvastatin Calcium [Lipitor 40 mg Tablet] 40 mg PO QHS 30 Days #30 tablet Duloxetine HCl [Cymbalta 30 mg Capsule.dr] 30 mg PO DAILY 30 Days #30 capsule.dr 08/03/18 Escitalopram Oxalate [Lexapro 10 mg Tablet] 10 mg PO DAILY 30 Days #30 tablet Fluticasone/Salmeterol [Advair 100-50 Diskus 14 Dose/Diskus] 1 inh IH DAILY 28 Days #2 inhaler 08/03/18 Metoprolol Succinate [Toprol Xl 50 mg Tab.sr] 50 mg PO DAILY 30 Days #30 tab.sr.24h 08/03/18 Allergies/Adverse Reactions: atropine [Atropine] Allergy (Intermediate, Verified 07/11/18 18:22) Abnormal behavior sumatriptan [From Imitrex] Allergy (Verified 07/11/18 18:22) sumatriptan succinate [From Imitrex] Allergy (Verified 07/11/18 18:22) Review of Systems ROS unobtainable: Due to mental status Physical Exam Vital Signs: Temp Pulse Resp BP Pulse Ox 14 199/110 H 100 08/15/18 02:31 08/15/18 02:31 08/15/18 02:31 Intake & Output 08/13/18 08/14/18 08/15/18 11:59 11:59 11:59 Intake Total 1000 Balance 1000 General appearance: PRESENT: disheveled, severe distress, thin. ABSENT: cooperative Head exam: ABSENT: atraumatic - Right periorbital edema Eye exam: PRESENT: conjunctiva pale, EOMI, periorbital swelling, PERRLA. ABSENT : conjunctival injection, conjunctiva pink Ear exam: PRESENT: normal external ear exam Mouth exam: PRESENT: moist, tongue midline Teeth exam: PRESENT: poor dentation Neck exam: ABSENT: carotid bruit, JVD, lymphadenopathy, thyromegaly Respiratory exam: PRESENT: accessory muscle use, clear to auscultation kristine, crackles, tachypnea. ABSENT: rales, rhonchi, wheezes Cardiovascular exam: PRESENT: +S1, +S2, tachycardia Pulses: PRESENT: normal dorsalis pedis pul Vascular exam: PRESENT: normal capillary refill GI/Abdominal exam: PRESENT: normal bowel sounds, soft. ABSENT: distended, guarding, mass, organolmegaly, rebound, tenderness Torso Front/Back Image: 1 - 4 x 4 centimeter stage II decub Rectal exam: PRESENT: deferred Extremities exam: PRESENT: full ROM. ABSENT: calf tenderness, clubbing, pedal edema Neurological exam: PRESENT: alert, awake, oriented to person, oriented to place , oriented to time, oriented to situation, CN II-XII grossly intact. ABSENT: motor sensory deficit Psychiatric exam: PRESENT: appropriate affect, normal mood. ABSENT: homicidal ideation, suicidal ideation Skin exam: PRESENT: dry, intact, warm. ABSENT: cyanosis, rash Results Impressions: Chest X-Ray 08/14/18 21:50 IMPRESSION: No acute cardiopulmonary abnormality. Head CT 08/14/18 21:50 IMPRESSION: No acute intracranial findings. Assessment & Plan - Diagnosis (1) Metabolic acidosis Is this a current diagnosis for this admission?: Yes Plan: Unclear cause, given history concern for methanol or glycol alcohol, follow-up urine for glycosylated crystal, serum methanol, alcohol level ABG and osmolarity. (2) Encephalopathy Is this a current diagnosis for this admission?: Yes Plan: History of narcotic abuse versus FL ES syndrome, supportive care (3) Hypertensive urgency Is this a current diagnosis for this admission?: Yes Plan: Labetalol, hydralazine, Cardene as needed (4) Seizure Is this a current diagnosis for this admission?: Yes Plan: Hypertensive urgency likely related to FL ES syndrome, Keppra ordered (5) PRES (posterior reversible encephalopathy syndrome) Is this a current diagnosis for this admission?: Yes Plan: Supportive care, blood pressure control and Keppra - Time Time Spent: 50 to 70 Minutes
[2018-08-15] MEDS: NORMAL SALINE 1000 ML 1,000 ML IV PRN ×3 (03:05→13:58)
[2018-08-15] MEDS: LORAZEPAM INJ 2 MG/1 ML VIAL IV PRN ×5 (03:05→17:28)
[2018-08-15] MEDS ORDERED: FOLIC ACID INJ 5 MG/1 ML 10 ML VIAL IV PRN (03:21)
[2018-08-15] MEDS ORDERED: THIAMINE HCL INJ 200 MG/2 ML VIAL IV PRN (03:21)
[2018-08-15] MEDS ORDERED: THIAMINE HCL 100 MG, FOLIC ACID 1 MG in NORMAL SALINE 250 ML IV ONE (03:30)
[2018-08-15 03:51] LABS: ARTERIAL BLOOD BASE EXCESS -2.1 mmol/L; ARTERIAL BLOOD H2CO3 1.01 mmol/L (1.05-1.35); ARTERIAL BLOOD HCO3 21.5 mmol/L (20-24); ARTERIAL BLOOD O2 SATURATION 98.5 % (94-98); ARTERIAL BLOOD PCO2 33.4 mmHg (35-45); ARTERIAL BLOOD PH 7.43 (7.35-7.45); ARTERIAL BLOOD PO2 122.9 mmHg (80-100); ARTERIAL BLOOD TOTAL CO2 22.5 mmol/L (21-25)
[2018-08-15 03:54] LABS: ARTERIAL BLOOD FIO2 2 L
[2018-08-15 04:10] LABS: HEMATOCRIT 38.4 % (36.0-47.0); MEAN CORPUSCULAR HEMOGLOBIN 29.2 pg (27.0-33.4); MEAN CORPUSCULAR HGB CONC 33.8 g/dL (32.0-36.0); MEAN CORPUSCULAR VOLUME 87 fl (80-97); PLATELET COUNT 260 10^3/uL (150-450); RED BLOOD COUNT 4.43 10^6/uL (3.72-5.28); RED CELL DISTRIBUTION WIDTH 14.6 % (11.5-14.0)
[2018-08-15 04:15] LABS: ALANINE AMINOTRANSFERASE 16 U/L (9-52); ALBUMIN 3.7 g/dL (3.5-5.0); ALKALINE PHOSPHATASE 56 U/L (38-126); ANION GAP 12 (5-19); ASPARTATE AMINO TRANSFERASE 21 U/L (14-36); BILIRUBIN,DIRECT 0.2 mg/dL (0.0-0.4); BILIRUBIN,TOTAL 0.5 mg/dL (0.2-1.3); BLOOD UREA NITROGEN 15 mg/dL (7-20); CALCIUM 9.1 mg/dL (8.4-10.2); CARBON DIOXIDE 22 mmol/L (22-30); CHLORIDE 107 mmol/L (98-107); GLUCOSE 140 mg/dL (75-110); POTASSIUM 3.2 mmol/L (3.6-5.0); SODIUM 141.2 mmol/L (137-145); TOTAL PROTEIN 6.6 g/dL (6.3-8.2)
[2018-08-15 04:26] LABS: CREATINE KINASE MB 1.74 ng/mL (<4.55); TROPONIN I 0.039 ng/mL
[2018-08-15 04:28] LABS: WHITE BLOOD COUNT 20.3 10^3/uL (4.0-10.5)
[2018-08-15 04:34] LABS: ABSOLUTE LYMPHOCYTES# (MANUAL) 2.2 10^3/uL (0.5-4.7); ANISOCYTOSIS SLIGHT; BASOPHILS % (MANUAL) 0 % (0-2); EOSINOPHILS % (MANUAL) 0 % (0-6); LYMPHOCYTES % (MANUAL) 11 % (13-45); MONOCYTES % (MANUAL) 10 % (3-13); PLATELET COMMENT ADEQUATE; SCHISTOCYTES 1+; SEGMENTED NEUTROPHILS % (MAN) 79 % (42-78); TOTAL CELLS COUNTED 100; TOXIC GRANULATION 1+
[2018-08-15 04:35] LABS: PLATELET CLUMPS PRESENT; PLATELET GIANT PRESENT; PLATELET LARGE PRESENT
[2018-08-15] MEDS ORDERED: FOLIC ACID INJ 5 MG/1 ML 10 ML VIAL ONE (04:35)
[2018-08-15] MEDS ORDERED: MAGNESIUM SULFATE/D5W 1 GM/100 ML RTUPB IV SCH (05:30)
[2018-08-15] MEDS: POTASSI CL 20 MEQ/50 ML RIDER 20 MEQ/50 ML RTUPB IV SCH ×2 (05:51→07:43)
[2018-08-15] MEDS: HEPARIN SOD (PORCINE) 5,000 UNIT/ML 1 ML SYRINGE SUBCUT SCH ×3 (05:51→22:24)
[2018-08-15] MEDS: HYDRALAZINE HCL INJ/PF 20 MG/1 ML SDV IV PRN ×3 (05:59→14:47)
--- NOTE | 2018-08-15 07:39 | EKG REPORT ---
SEVERITY:- ABNORMAL ECG - SINUS TACHYCARDIA 106. PROBABLE LEFT VENTRICULAR HYPERTROPHY LA ABNORMALITY BORDERLINE DAMIAN : Confirmed by: Juan Alberto Ramos MD 15-Aug-2018 07:39:10
[2018-08-15] MEDS: MAGNESIUM SULFATE/D5W 1 GM/100 ML RTUPB IV SCH ×2 (08:27→09:17)
[2018-08-15] MEDS: IPRATROPIUM/ALBUTEROL 0.5-2.5 MG/3 ML AMPUL NEB SCH ×2 (08:54→20:01)
[2018-08-15] MEDS: LEVETIRACETAM 1500 MG/NACL-ISO 1,500 MG/100 ML RTUPB IV SCH ×2 (09:27→22:24)
[2018-08-15 11:28] LABS: CREATINE KINASE MB 2.02 ng/mL (<4.55); TROPONIN I 0.021 ng/mL
[2018-08-15] MEDS ORDERED: NORMAL SALINE 1000 ML 1,000 ML IV PRN (17:01)
[2018-08-15] MEDS ORDERED: NALOXONE HCL INJ/PF 0.4 MG/1 ML SDV IV ONE (17:30)
[2018-08-15 18:25] LABS: UR PRO/CREAT RATIO RESULT 1.4 mg/mg (0.0-0.2); URINE CREATININE 143.6 mg/dL (15-278); URINE PROTEIN 195.2 mg/dL (<12)
[2018-08-15] MEDS: NICARDIPINE HCL RTU, ISO-OS 20 MG/200 ML RTUINJ IV PRN (18:31)
--- NOTE | 2018-08-15 19:04 | RADIOLOGY REPORT (SQ) ---
EXAM DESCRIPTION: MRI HEAD COMBO COMPLETED DATE/TIME: 08/15/2018 6:36 pm REASON FOR STUDY: HTN emerg, seizure, admitted for possible PRES COMPARISON: CT dated 08/14/2018. MR dated 03/25/2017. TECHNIQUE: Multiplanar imaging includes noncontrasted T1, T2, FLAIR, diffusion with ADC map and post gadolinium contrast T1 sequences. Images stored on PACS. CONTRAST TYPE AND DOSE: 10 mL Dotarem. RENAL FUNCTION: GFR > 60. LIMITATIONS: Motion artifact, particularly on the postcontrast images. Postcontrast images are unin terpretable due to motion artifact. FINDINGS: ANATOMY: No anomalies. Normal vascular flow voids. Pituitary fossa normal. CSF SPACES: Normal in size and contour. No hemorrhage. CEREBRUM: Sulci and gyri normal in size and contour. Extensive abnormal signal in the periventricula r white matter and the white matter of the posterior parietal lobes with increased signal on FLAIR an d T2 weighted images. New areas of abnormal signal in the right and left occipital lobes, right grea ter than left. No evidence of hemorrhage, mass, or extraaxial fluid collection. POSTERIOR FOSSA: Increased white matter signal in the leanna. No hemorrhage. No edema, masses, or mass effect. Internal auditory canals, cerebellopontine angles, mastoids normal. No enhancing lesions. DIFFUSION IMAGING: Negative for acute or subacute infarction. ORBITS: No masses. Globes normal. PARANASAL SINUSES: No fluid levels. Mucosa normal. OTHER: No other significant finding. IMPRESSION: EXTENSIVE ABNORMAL WHITE MATTER SIGNAL DESCRIBED. NEW AREAS OF ABNORMAL SIGNAL IN TH E OCCIPITAL LOBES. FINDINGS SUSPICIOUS FOR POSTERIOR REVERSIBLE ENCEPHALOPATHY SYNDROME. EVIDENCE OF ACUTE STROKE: NO. TECHNICAL DOCUMENTATION: JOB ID: [id number] [employer]- All Rights Reserved Reading location - IP/workstation name: [email or web address]
[2018-08-15] MEDS: THIAMINE HCL 100 MG, FOLIC ACID 1 MG in NORMAL SALINE 250 ML IV SCH (22:24)
[2018-08-16] MEDS: NICARDIPINE HCL RTU, ISO-OS 20 MG/200 ML RTUINJ IV PRN ×2 (02:53→08:52)
[2018-08-16 04:06] LABS: ABSOLUTE LYMPHOCYTES (AUTO) 1.7 10^3/uL (0.5-4.7); ABSOLUTE MONOCYTES (AUTO) 0.6 10^3/uL (0.1-1.4); ABSOLUTE NEUT (AUTO) 8.6 10^3/uL (1.7-8.2); BASOPHILS % (AUTO) 0.2 % (0-2); EOSINOPHILS % (AUTO) 0.3 % (0-6); HEMATOCRIT 42.5 % (36.0-47.0); HEMOGLOBIN 14.4 g/dL (12.0-15.5); LYMPHOCYTES % (AUTO) 15.7 % (13-45); MEAN CORPUSCULAR HEMOGLOBIN 29.6 pg (27.0-33.4); MEAN CORPUSCULAR HGB CONC 33.9 g/dL (32.0-36.0); MEAN CORPUSCULAR VOLUME 87 fl (80-97); MONOCYTES % (AUTO) 5.8 % (3-13); PLATELET COUNT 239 10^3/uL (150-450); RED BLOOD COUNT 4.87 10^6/uL (3.72-5.28); RED CELL DISTRIBUTION WIDTH 14.9 % (11.5-14.0); TOTAL CELLS COUNTED % (AUTO) 100 %; WHITE BLOOD COUNT 11.1 10^3/uL (4.0-10.5)
[2018-08-16] MEDS: ACETAMINOPHEN 325 MG TABLET PO PRN ×3 (04:34→13:15)
[2018-08-16 05:06] LABS: BLOOD UREA NITROGEN 7 mg/dL (7-20); CALCIUM 9.4 mg/dL (8.4-10.2); GLUCOSE 118 mg/dL (75-110)
[2018-08-16 05:07] LABS: ALANINE AMINOTRANSFERASE 18 U/L (9-52); ALKALINE PHOSPHATASE 61 U/L (38-126); ANION GAP 17 (5-19); ASPARTATE AMINO TRANSFERASE 64 U/L (14-36); CARBON DIOXIDE 22 mmol/L (22-30); CHLORIDE 104 mmol/L (98-107); SODIUM 142.5 mmol/L (137-145)
[2018-08-16 05:08] LABS: BILIRUBIN,DIRECT 0.3 mg/dL (0.0-0.4); BILIRUBIN,TOTAL 0.7 mg/dL (0.2-1.3); TOTAL PROTEIN 7.2 g/dL (6.3-8.2)
[2018-08-16] MEDS: HEPARIN SOD (PORCINE) 5,000 UNIT/ML 1 ML SYRINGE SUBCUT SCH ×3 (06:09→23:24)
[2018-08-16] MEDS: POTASSIUM CHLORIDE 20 MEQ/50 ML RTU IV SCH ×2 (06:09→08:41)
[2018-08-16] MEDS: LEVETIRACETAM 1500 MG/NACL-ISO 1,500 MG/100 ML RTUPB IV SCH (10:10)
[2018-08-16] MEDS: IPRATROPIUM/ALBUTEROL 0.5-2.5 MG/3 ML AMPUL NEB SCH (10:12)
[2018-08-16] MEDS ORDERED: METOCLOPRAMIDE HCL 10 MG TABLET PO PRN (12:54)
[2018-08-16] MEDS: METOPROLOL TARTRATE PF/INJ 5 MG/5 ML SDV IV SCH ×2 (13:51→13:52)
[2018-08-16] MEDS: METOPROLOL SUCCINATE 50 MG TAB.SR.24H PO SCH (13:52)
[2018-08-16] MEDS: ALBUTEROL SULFATE 0.083% NEB 2.5 MG/3 ML AMPUL NEB PRN ×2 (14:27→20:03)
[2018-08-16] MEDS: ACETYLCYSTEINE 20% SOLN 800 MG/4 ML VIAL.NEB NEB SCH ×2 (14:27→20:03)
[2018-08-16] MEDS: BUDESONIDE NEB 0.5 MG/2 ML AMPUL NEB SCH ×2 (14:27→20:03)
[2018-08-16 15:37] LABS: FREE T3 3.69 pg/mL (2.77-5.27); FREE T4 (FREE THYROXINE) 1.34 ng/dL (0.78-2.19)
[2018-08-16] MEDS: METOCLOPRAMIDE HCL 10 MG TABLET PO SCH (16:43)
[2018-08-16] MEDS: IPRATROPIUM BROMIDE 0.02% NEB 0.5 MG/2.5 ML AMPUL NEB SCH (16:51)
[2018-08-16] MEDS: LEVALBUTEROL HCL NEB 1.25 MG/3 ML AMPUL NEB SCH (16:51)
[2018-08-16] MEDS: METHADONE HCL 10 MG TABLET PO SCH (17:59)
[2018-08-16] MEDS ORDERED: METHADONE HCL 10 MG TABLET PO SCH (18:00)
[2018-08-16] MEDS ORDERED: ATORVASTATIN CALCIUM 40 MG TABLET PO SCH (22:00)
[2018-08-16] MEDS ORDERED: MONTELUKAST SODIUM 10 MG TABLET PO SCH (22:00)
[2018-08-16] MEDS ORDERED: FLUTICASONE/SALMETEROL DISKUS 100-50 MCG/DOSE IH SCH (22:00)
--- NOTE | 2018-08-16 22:11 | PDOC PROGRESS REPORT ---
Subjective Progress Note for:: 08/16/18 Subjective:: ALEJANDRO DALEY is a 62 year old female who presented to the emergency room with history of altered mental status of uncertain duration and etiology. She was found by her family members in the poorly responsive state in a parking lot. She was noted to have swelling of her right periorbital region that had not been there previously. She was subsequently brought to the emergency room for evaluation and during her workup she suffered a tonic-clonic seizure lasting for approximately 60 seconds and during her postictal state she developed persistent systolic hypertension. She was treated with IV labetalol as well is Versed and Valium IV and subsequently admitted to the hospitalist service in the ICU. She was noted to have a leukocytosis of the metabolic acidosis in the emergency room. 08/16/2018: Patient shows improved responsiveness with meaningful answers to verbal questions. She is complaining of generalized pain but denies injury or assault , but has little memory of prehospital events. Reason For Visit: ENCEPHALOPATHY HTN URGENCY INTOXICATION Physical Exam Vital Signs: Temp Pulse Resp BP Pulse Ox 100.0 F 92 16 168/82 H 97 08/16/18 16:00 08/16/18 16:00 08/16/18 16:00 08/16/18 16:00 08/16/18 16:00 Intake & Output 08/14/18 08/15/18 08/16/18 23:59 23:59 23:59 Intake Total 4994.2 408 Output Total 4245 2500 Balance 749.2 -2092 Weight 72.5 kg 71.8 kg General appearance: PRESENT: no acute distress, cooperative Head exam: PRESENT: normocephalic, other - mild rigth periorbital edema/early ecchymosis Eye exam: PRESENT: conjunctiva pink. ABSENT: scleral icterus Ear exam: PRESENT: normal external ear exam. ABSENT: bleeding, drainage Mouth exam: PRESENT: dry mucosa, neck supple Neck exam: ABSENT: JVD, tracheal deviation Respiratory exam: PRESENT: clear to auscultation kristine, symmetrical, unlabored Cardiovascular exam: PRESENT: RRR. ABSENT: clicks, gallop, rubs Vascular exam: PRESENT: normal capillary refill. ABSENT: pallor GI/Abdominal exam: PRESENT: normal bowel sounds, soft Rectal exam: PRESENT: deferred Extremities exam: ABSENT: joint swelling, pedal edema Musculoskeletal exam: ABSENT: deformity, dislocation Neurological exam: PRESENT: alert, oriented to person, oriented to place, oriented to time Psychiatric exam: PRESENT: appropriate affect, normal mood Skin exam: PRESENT: dry, intact, warm. ABSENT: jaundice, rash, urticaria Results Laboratory Results: 08/16/18 03:57 08/16/18 03:57 08/16/18 08/16/18 08/16/18 03:57 03:57 03:57 WBC 11.1 H RBC 4.87 Hgb 14.4 Hct 42.5 MCV 87 MCH 29.6 MCHC 33.9 RDW 14.9 H Plt Count 239 Seg Neutrophils % 78.0 Lymphocytes % 15.7 Monocytes % 5.8 Eosinophils % 0.3 Basophils % 0.2 Absolute Neutrophils 8.6 H Absolute Lymphocytes 1.7 Absolute Monocytes 0.6 Absolute Eosinophils 0.0 Absolute Basophils 0.0 Sodium 142.5 Potassium 3.0 L* Chloride 104 Carbon Dioxide 22 Anion Gap 17 BUN 7 Creatinine 0.38 L Est GFR ( Amer) > 60 Est GFR (Non-Af Amer) > 60 Glucose 118 H Calcium 9.4 Magnesium 1.6 Total Bilirubin 0.7 AST 64 H ALT 18 Alkaline Phosphatase 61 Total Protein 7.2 Albumin 4.0 Free T4 Free T3 pg/mL 08/16/18 14:50 WBC RBC Hgb Hct MCV MCH MCHC RDW Plt Count Seg Neutrophils % Lymphocytes % Monocytes % Eosinophils % Basophils % Absolute Neutrophils Absolute Lymphocytes Absolute Monocytes Absolute Eosinophils Absolute Basophils Sodium Potassium Chloride Carbon Dioxide Anion Gap BUN Creatinine Est GFR ( Amer) Est GFR (Non-Af Amer) Glucose Calcium Magnesium Total Bilirubin AST ALT Alkaline Phosphatase Total Protein Albumin Free T4 1.34 Free T3 pg/mL 3.69 08/15/18 08/15/18 08/15/18 03:34 03:34 09:55 Creatine Kinase 130 204 H CK-MB (CK-2) 1.74 Troponin I 0.039 08/15/18 09:55 Creatine Kinase CK-MB (CK-2) 2.02 Troponin I 0.021 Impressions: Chest X-Ray 08/14/18 21:50 IMPRESSION: No acute cardiopulmonary abnormality. Head CT 08/14/18 21:50 IMPRESSION: No acute intracranial findings. Head MRI 08/15/18 08:00 IMPRESSION: EXTENSIVE ABNORMAL WHITE MATTER SIGNAL DESCRIBED. NEW AREAS OF ABNORMAL SIGNAL IN THE OCCIPITAL LOBES. FINDINGS SUSPICIOUS FOR POSTERIOR REVERSIBLE ENCEPHALOPATHY SYNDROME. EVIDENCE OF ACUTE STROKE: NO. Assessment & Plan - Diagnosis (1) Encephalopathy Is this a current diagnosis for this admission?: Yes Plan: Patient was obtunded and was this was due to an altered metabolic state ( acidosis), an altered neurovascular state (hypertensive emergency) or a postictal state. Patient will be monitored and treated supportively throughout the remainder of hospital course. Further evaluation will be undertaken as indicated. (2) Hypertensive urgency Is this a current diagnosis for this admission?: Yes Plan: Patient's blood pressures been well controlled on Cardene and she will be converted to oral antihypertensive therapy now that she is awake and alert. (3) Metabolic acidosis Is this a current diagnosis for this admission?: Yes Plan: Patient's metabolic status will be supported with IV and oral fluids as well as frequent monitoring of her metabolic status. Further intervention will be entertained as required. (4) Seizure Is this a current diagnosis for this admission?: Yes Plan: Patient will be continued on oral Keppra after discontinuation of IV therapy. - Time Time Spent with patient: Less than 15 minutes Medications reviewed and adjusted accordingly: Yes Anticipated discharge: Home
[2018-08-16] MEDS: THIAMINE HCL 100 MG, FOLIC ACID 1 MG in NORMAL SALINE 250 ML IV SCH (23:25)
[2018-08-17] MEDS: IPRATROPIUM BROMIDE 0.02% NEB 0.5 MG/2.5 ML AMPUL NEB SCH ×2 (00:04→08:01)
[2018-08-17] MEDS: LEVALBUTEROL HCL NEB 1.25 MG/3 ML AMPUL NEB SCH ×2 (00:04→08:01)
[2018-08-17] MEDS: LEVETIRACETAM 500 MG TABLET PO SCH ×2 (00:16→09:26)
[2018-08-17] MEDS: METOCLOPRAMIDE HCL 10 MG TABLET PO SCH ×4 (00:17→16:45)
[2018-08-17] MEDS: METHADONE HCL 10 MG TABLET PO SCH ×3 (00:19→14:01)
[2018-08-17] MEDS: HYDRALAZINE HCL INJ/PF 20 MG/1 ML SDV IV PRN ×2 (02:46→06:10)
[2018-08-17 04:08] LABS: ABSOLUTE BASOPHILS # (AUTO) 0.1 10^3/uL (0.0-0.2); ABSOLUTE LYMPHOCYTES (AUTO) 2.3 10^3/uL (0.5-4.7); ABSOLUTE MONOCYTES (AUTO) 0.9 10^3/uL (0.1-1.4); ABSOLUTE NEUT (AUTO) 11.4 10^3/uL (1.7-8.2); BASOPHILS % (AUTO) 0.7 % (0-2); EOSINOPHILS % (AUTO) 0.3 % (0-6); HEMATOCRIT 40.1 % (36.0-47.0); HEMOGLOBIN 13.6 g/dL (12.0-15.5); LYMPHOCYTES % (AUTO) 15.8 % (13-45); MEAN CORPUSCULAR HEMOGLOBIN 29.6 pg (27.0-33.4); MEAN CORPUSCULAR VOLUME 87 fl (80-97); MONOCYTES % (AUTO) 6.2 % (3-13); PLATELET COUNT 271 10^3/uL (150-450); TOTAL CELLS COUNTED % (AUTO) 100 %; WHITE BLOOD COUNT 14.8 10^3/uL (4.0-10.5)
[2018-08-17] MEDS: ACETAMINOPHEN 325 MG TABLET PO PRN (04:34)
[2018-08-17 04:37] LABS: ANION GAP 14 (5-19); BLOOD UREA NITROGEN 12 mg/dL (7-20); CALCIUM 9.8 mg/dL (8.4-10.2); CARBON DIOXIDE 25 mmol/L (22-30); CHLORIDE 103 mmol/L (98-107); GLUCOSE 95 mg/dL (75-110); POTASSIUM 3.2 mmol/L (3.6-5.0)
[2018-08-17] MEDS: HEPARIN SOD (PORCINE) 5,000 UNIT/ML 1 ML SYRINGE SUBCUT SCH ×2 (06:02→14:01)
[2018-08-17] MEDS: ACETYLCYSTEINE 20% SOLN 800 MG/4 ML VIAL.NEB NEB SCH (08:00)
[2018-08-17] MEDS: BUDESONIDE NEB 0.5 MG/2 ML AMPUL NEB SCH (08:01)
[2018-08-17 08:20] LABS: METHANOL, BLOOD Negative % (0.000-0.01)
[2018-08-17] MEDS: METOPROLOL SUCCINATE 50 MG TAB.SR.24H PO SCH (09:27)
[2018-08-17] MEDS: ESCITALOPRAM OXALATE 10 MG TABLET PO SCH ×2 (09:27→09:30)
[2018-08-17] MEDS ORDERED: DULOXETINE HCL 30 MG CAPSULE.DR PO SCH (10:00)
[2018-08-17] MEDS ORDERED: METOPROLOL SUCCINATE 50 MG TAB.SR.24H PO SCH (10:00)
[2018-08-17 15:01] VITALS: BP 112/59
--- NOTE | 2018-08-17 15:31 | PDOC DISCHARGE SUMMARY ---
General - Admit/Disc Date/PCP Admission Date/Primary Care Provider: 08/15/18 01:57 RUSS ORTIZ PA-C Discharge Date: 08/17/18 - Discharge Diagnosis (1) Encephalopathy Is this a current diagnosis for this admission?: Yes Summary: Patient was obtunded and was this was due to an altered metabolic state ( acidosis), an altered neurovascular state (hypertensive emergency) or a postictal state. Patient was monitored and treated supportively throughout the remainder of hospital course. Further evaluation will be undertaken as indicated on an outpatient basis. (2) Hypertensive urgency Is this a current diagnosis for this admission?: Yes Summary: Patient's blood pressure was well controlled on Cardene and she was converted to oral antihypertensive therapy, using metoprolol succinate, when she was awake and alert. (3) Metabolic acidosis Is this a current diagnosis for this admission?: Yes Summary: Patient's metabolic status was supported with IV and oral fluids as well as frequent monitoring of her metabolic status. Patient's metabolic acidosis resolved prior to discharge. (4) Seizure Is this a current diagnosis for this admission?: Yes Summary: Patient will be continued on oral Keppra after discontinuation of IV therapy. Keppra ER will be continued at 1500 mg p.o. twice daily for at least one month. Generally in a patient that had a single seizure ongoing therapy somewhat questionable however since this patient had one medically observed seizure in the emergency room and is very likely to have had a another seizure as the cause of her fall and resultant postictal state in the parking lot oft the [facility] prior to her arrival at the emergency room. Thus with 2 consecutive seizures this is a little more worrisome for a potential third seizure and further evaluation should be undertaken on an outpatient basis with a neurologist. - Additional Information Resuscitation Status: Full Code Discharge Diet: Cardiac Discharge Activity: Activity As Tolerated Prescriptions: Levetiracetam [Levetiracetam ER] 1,500 mg PO BID 30 Days #120 tab.er.24h Metoprolol Succinate [Toprol Xl] 200 mg PO DAILY 30 Days #30 tab.er.24h Home Medications: Atorvastatin Calcium [Lipitor 40 mg Tablet] 40 mg PO QHS 30 Days #30 tablet Duloxetine HCl [Cymbalta 30 mg Capsule.dr] 30 mg PO DAILY 30 Days #30 capsule.dr 08/03/18 Escitalopram Oxalate [Lexapro 10 mg Tablet] 10 mg PO DAILY 30 Days #30 tablet Fluticasone/Salmeterol [Advair 100-50 Diskus 14 Dose/Diskus] 1 inh IH DAILY 28 Days #2 inhaler 08/03/18 Methadone HCl [Dolophine 10 mg Tablet] 10 mg PO Q6 08/15/18 Metoclopramide HCl 10 mg PO BID PRN 08/15/18 Ondansetron [Zofran Odt 4 mg Tablet] 4 mg PO BIDP PRN 08/15/18 Levetiracetam [Levetiracetam ER] 1,500 mg PO BID 30 Days #120 tab.er.24h Metoprolol Succinate [Toprol Xl] 200 mg PO DAILY 30 Days #30 tab.er.24h History of Present Illness History of Present Illness: CASSY DALEY is a 62 year old female who presented to the emergency room with history of altered mental status of uncertain duration and etiology. She was found by her family members in the poorly responsive state in a parking lot. She was noted to have swelling of her right periorbital region that had not been there previously. She was subsequently brought to the emergency room for evaluation and during her workup she suffered a tonic-clonic seizure lasting for approximately 60 seconds and during her postictal state she developed persistent systolic hypertension. She was treated with IV labetalol as well is Versed and Valium IV and subsequently admitted to the hospitalist service in the ICU. She was noted to have a leukocytosis of the metabolic acidosis in the emergency room. Hospital Course Hospital Course: 08/16/2018: Patient shows improved responsiveness with meaningful answers to verbal questions. She is complaining of generalized pain but denies injury or assault , but has little memory of prehospital events. 08/17/2018: Cassy shows dramatic improvement today she is alert and oriented and is hungry and states she is ready to go home. She has minimal discomfort in the mildly swollen area of the right eyebrow/eyelid that is slightly ecchymotic on today's evaluation. She otherwise feels fine and is tolerated eating and drinking well. She has been alert and oriented discussing the events of the day and other family matters with numerous relatives that have stopped in. She still has no memory of the events of the night of her admission prior to the her admission or afterwards until waking in the ICU the next day. Because of her excellent response to treatment she was discharged home in improved and stable condition. Physical Exam Vital Signs: Temp Pulse Resp BP Pulse Ox 100.2 F 67 14 112/59 L 97 08/17/18 15:00 08/17/18 15:00 08/17/18 15:00 08/17/18 15:00 08/17/18 15:00 Intake & Output 08/15/18 08/16/18 08/17/18 23:59 23:59 23:59 Intake Total 4994.2 759 473 Output Total 4245 2950 750 Balance 749.2 -2191 -277 Weight 72.5 kg 71.8 kg 70.5 kg General appearance: PRESENT: no acute distress, cooperative Head exam: PRESENT: normocephalic, other - Mild edema and ecchymosis of the right upper eyelid and eyebrow is noted with minimal tenderness to palpation. Eye exam: PRESENT: conjunctiva pink, EOMI Ear exam: PRESENT: normal external ear exam. ABSENT: bleeding Mouth exam: PRESENT: neck supple Neck exam: ABSENT: JVD, tracheal deviation Respiratory exam: PRESENT: clear to auscultation kristine, decreased breath sounds - Mildly decreased breath sounds throughout all patel consistent with moderate COPD, symmetrical, unlabored Cardiovascular exam: PRESENT: RRR. ABSENT: clicks, gallop, rubs Vascular exam: PRESENT: normal capillary refill. ABSENT: pallor GI/Abdominal exam: PRESENT: normal bowel sounds, soft Rectal exam: PRESENT: deferred Extremities exam: ABSENT: joint swelling, pedal edema Musculoskeletal exam: PRESENT: full ROM, normal inspection Neurological exam: PRESENT: alert, oriented to person, oriented to place, oriented to time, oriented to situation, CN II-XII grossly intact. ABSENT: motor sensory deficit Psychiatric exam: PRESENT: appropriate affect, normal mood Skin exam: ABSENT: jaundice, rash, urticaria - [id number] Results Laboratory Results: 08/17/18 03:51 08/17/18 03:51 08/16/18 08/17/18 08/17/18 14:50 03:51 03:51 WBC RBC Hgb Hct MCV MCH MCHC RDW Plt Count Seg Neutrophils % Lymphocytes % Monocytes % Eosinophils % Basophils % Absolute Neutrophils Absolute Lymphocytes Absolute Monocytes Absolute Eosinophils Absolute Basophils Sodium 142.0 Potassium 3.2 L Chloride 103 Carbon Dioxide 25 Anion Gap 14 BUN 12 Creatinine 0.50 L Est GFR ( Amer) > 60 Est GFR (Non-Af Amer) > 60 Glucose 95 Calcium 9.8 Magnesium 1.7 TSH 2.13 Free T4 1.34 Free T3 pg/mL 3.69 08/17/18 03:51 WBC 14.8 H RBC 4.60 Hgb 13.6 Hct 40.1 MCV 87 MCH 29.6 MCHC 34.0 RDW 15.0 H Plt Count 271 Seg Neutrophils % 77.0 Lymphocytes % 15.8 Monocytes % 6.2 Eosinophils % 0.3 Basophils % 0.7 Absolute Neutrophils 11.4 H Absolute Lymphocytes 2.3 Absolute Monocytes 0.9 Absolute Eosinophils 0.0 Absolute Basophils 0.1 Sodium Potassium Chloride Carbon Dioxide Anion Gap BUN Creatinine Est GFR ( Amer) Est GFR (Non-Af Amer) Glucose Calcium Magnesium TSH Free T4 Free T3 pg/mL 08/15/18 08/15/18 08/15/18 03:34 03:34 09:55 Creatine Kinase 130 204 H CK-MB (CK-2) 1.74 Troponin I 0.039 08/15/18 09:55 Creatine Kinase CK-MB (CK-2) 2.02 Troponin I 0.021 Impressions: Chest X-Ray 08/14/18 21:50 IMPRESSION: No acute cardiopulmonary abnormality. Head CT 08/14/18 21:50 IMPRESSION: No acute intracranial findings. Head MRI 08/15/18 08:00 IMPRESSION: EXTENSIVE ABNORMAL WHITE MATTER SIGNAL DESCRIBED. NEW AREAS OF ABNORMAL SIGNAL IN THE OCCIPITAL LOBES. FINDINGS SUSPICIOUS FOR POSTERIOR REVERSIBLE ENCEPHALOPATHY SYNDROME. EVIDENCE OF ACUTE STROKE: NO. Qualifiers - * PATIENT BEING DISCHARGED WITH ANY OF THE FOLLOWING DIAGNOSIS: No Plan Discharge Plan: Discharged home in improved and stable condition Time Spent: Greater than 30 Minutes
== END 2018-08-17 17:00 | disposition home or self-care (01) | DRG 71 ==
LOC: ER 21:37 → EH 08-15 01:57 → ICU 08-15 02:49
PROVIDERS: ADMIT Internal Medicine; ATTEND Internal Medicine
DX: G93.49 Other encephalopathy (principal); E87.2 Acidosis; I16.0 Hypertensive urgency; G40.409 Other generalized epilepsy and epileptic syndromes, not intractable, without status epilepticus; E11.9 Type 2 diabetes mellitus without complications; M19.90 Unspecified osteoarthritis, unspecified site; F31.9 Bipolar disorder, unspecified; Z79.899 Other long term (current) drug therapy; Z90.710 Acquired absence of both cervix and uterus; Z88.8 Allergy status to other drugs, medicaments and biological substances
CPT/HCPCS: 36415; 51702; 70450; 70553; 71045; 80048; 80053; 80307; 81001; 82550; 82553; 82570; 82693; 82803; 82945; 82962; 83605; 83735; 83930; 83935; 84156; 84157; 84439; 84443; 84481; 84484; 84600; 85025; 87015; 87070; 87116; 87205; 87206; 87210; 87252; 89050; 93005; 93010; 94640; 96361; 96374; 96375; 96376; 99291; 99292; J0360; J1644; J1953; J2060; J2250; J2310; J3360; J3411; J3475; J3480; J3490; J7030; J7050; J7120; J7620